=== PATIENT | female | born 1940 | race Hispanic/Latino ===

== ENCOUNTER 2018-06-09 15:54 | Inpatient (IN) | payer BC, MEDICARE ==
[2018-06-09] MEDS ORDERED: Morphine 4 mg/ml ISec IVP STA (17:54)
[2018-06-09] MEDS ORDERED: Vancomycin 1gm in NS 250ml 1 GM/250 ML BAG IVPB STA (17:54)
--- NOTE | 2018-06-09 18:01 | ED PDOC ---
Arrival/HPI - General Chief Complaint: Lower Extremity Problem/Injury Time Seen by Provider: 06/09/18 17:53 Historian: Patient - History of Present Illness Narrative History of Present Illness (Text): 06/09/18 17:57 78 y/o female, pmh including htn/hld/osteoporosis, nkda, c/o rt. foot toe pain x 3-4 days. Pt. stated that she scratch the rt. foot 5th toe about 4 days ago, been having foul smell and skin redness on the rt. 5th digit toe, been having pain on the rt. foot region, no fever or chills, painful to walk and stand, no fall or trauma, no night sweat, no dizziness, no change in vision, no other medical or psychological complaints. Past Medical History - Provider Review Nursing Documentation Reviewed: Yes - Infectious Disease Hx of Infectious Diseases: None - Reproductive Menopause: Yes - Cardiac Hx Hypertension: Yes - Pulmonary Hx Asthma: Yes - Neurological Hx Neurological Disorder: No - HEENT Hx HEENT Disorder: No - Renal Hx Renal Disorder: No - Endocrine/Metabolic Hx Endocrine Disorders: No - Hematological/Oncological Hx Blood Disorders: No - Integumentary Hx Dermatological Disorder: No - Musculoskeletal/Rheumatological Hx Musculoskeletal Disorders: No - Gastrointestinal Hx Gastrointestinal Disorders: No - Genitourinary/Gynecological Hx Genitourinary Disorders: No - Psychiatric Hx Psychophysiologic Disorder: No Hx Substance Use: No - Surgical History Hx Cholecystectomy: Yes Hx Orthopedic Surgery: Yes (Right foot) - Anesthesia Hx Anesthesia: Yes Hx Anesthesia Reactions: No Hx Malignant Hyperthermia: No Family/Social History - Physician Review Nursing Documentation Reviewed: Yes Family/Social History: Unknown Family HX Smoking Status: Never Smoked Hx Alcohol Use: No Hx Substance Use: No Allergies/Home Meds Allergies/Adverse Reactions: Allergies No Known Allergies Allergy (Verified 11/25/15 22:45) Home Medications: Home Meds Medication Instructions Recorded Confirmed Budesonide/Formoterol Fumarate 2 aer IH DAILY 05/14/15 11/25/15 [Symbicort] Olmesartan Medoxomil [Benicar] 20 mg PO DAILY 05/14/15 11/25/15 Review of Systems - Review of Systems Constitutional: absent: Fatigue, Fevers Eyes: absent: Vision Changes ENT: absent: Hearing Changes Respiratory: absent: SOB, Cough Cardiovascular: absent: Chest Pain Gastrointestinal: absent: Abdominal Pain, Nausea, Vomiting Skin: Cellulitis. absent: Rash, Pruritis, Skin Lesions, Laceration, Abscess, Ulcer Neurological: absent: Headache, Dizziness Psychiatric: absent: Anxiety, Depression Physical Exam Vital Signs Reviewed: Yes Vital Signs Temp Pulse Resp BP Pulse Ox 06/09/18 17:30 98.3 F 90 18 150/90 99 Temperature: Afebrile Blood Pressure: Normal Pulse: Regular Respiratory Rate: Normal Appearance: Positive for: Well-Appearing, Non-Toxic Pain Distress: Moderate Mental Status: Positive for: Alert and Oriented X 3 - Systems Exam Head: Present: Atraumatic, Normocephalic Pupils: Present: PERRL Extroacular Muscles: Present: EOMI Conjunctiva: Present: Normal Mouth: Present: Moist Mucous Membranes Neck: Present: Normal Range of Motion Respiratory/Chest: Present: Clear to Auscultation, Good Air Exchange. No: Respiratory Distress, Accessory Muscle Use Cardiovascular: Present: Regular Rate and Rhythm, Normal S1, S2. No: Murmurs Abdomen: No: Tenderness, Distention, Peritoneal Signs Back: Present: Normal Inspection Upper Extremity: Present: Normal Inspection. No: Cyanosis, Edema Lower Extremity: Present: Normal Inspection, Other (Rt. foot/LE: visible foul smell with skin cracking between the 4th and 5th digit web space with foul smell along with cellulitis on the rt. foot 4th and 5th digit dorsum toe streaking up to the rt. foot and anterior ocampo region, no fluctuant abscess noted, FROM without limitation, sensation intact, motor 5/5, +DPPT pulses, capillary refill< 2 seconds, neurovascular intact. ). No: Edema Neurological: Present: GCS=15, CN II-XII Intact, Speech Normal Skin: Present: Warm, Dry, Normal Color. No: Rashes Psychiatric: Present: Alert, Oriented x 3, Normal Insight, Normal Concentration Medical Decision Making ED Course and Treatment: 06/09/18 18:01 -Labs/blood culture -EKG -Rt. foot 5th toe xray -RLE Venuous doppler -IV vancomycin/morphine -Observe and reassess 06/09/18 20:00 -EKG: NSR @ 72 BPM, no ST elevation or depression, no T wave inversion -Rt foot xray show no fracture/dislocation/gas -RLE Venuous doppler -Labs show no acute findings except wbc 11.6 (blood culture ordered) -Pt. will need to be admitted for IV antibiotic and wound care due to the extensive of this cellulitis spreading. All labs and radiology studies explained to the patient and she agreed to be admitted. -Pt. request to be admitted under Dr. Ha service, I discussed the case with Dr. Ha including/labs/radiology results and agreed to admit to her service as she would follow up on any pending labs/radiology studies but she request to have Dr. Martinez and Dr. Jerome for routine consult which I ordered. - Lab Interpretations I have reviewed the lab results: Yes - RAD Interpretation Radiology Orders: 06/09/18 17:54 FOOT RIGHT 5TH DIGIT (TOE) [RAD] Stat DUPLEX LOWER EXTRM VEIN RIGHT [US] Stat 06/09/18 17:55 CHEST PORTABLE [RAD] Stat Chest xray: ------- Rt. foot 5th digit xray: RLE venuous doppler Transportation Superintendent: Radiologist - EKG Interpretation EKG Interpretation (Text): 06/09/18 20:08 NSR @ 72 BPM, no ST elevation or depression, no T wave inversion Interpreted by ED Physician: Yes Type: 12 lead EKG - Medication Orders Current Medication Orders: Sodium Chloride (Sodium Chloride 0.9%) 1,000 mls @ 100 mls/hr IV .Q10H [facility] Vancomycin HCl (Vancomycin 1gm) 1 gm in 250 mls @ 167 mls/hr IVPB STAT STA; Protocol Stop: 06/09/18 19:23 Morphine Sulfate (Morphine) 4 mg IVP STAT STA Stop: 06/09/18 17:55 - PA / HUNTER GUIDE / Resident Statement MD/DO has reviewed & agrees with the documentation as recorded. Disposition/Present on Arrival - Present on Arrival Any Indicators Present on Arrival: No History of DVT/PE: No History of Uncontrolled Diabetes: No Urinary Catheter: No History of Decub. Ulcer: No History Surgical Site Infection Following: None - Disposition Have Diagnosis and Disposition been Completed?: Yes Diagnosis: Cellulitis of foot, Leukocytosis (leucocytosis) Disposition: HOSPITALIZED Disposition Time: 20:02 Patient Plan: Admission, Observation Condition: STABLE Discharge Instructions (ExitCare): Cellulitis (ED) Forms: [employer] (Y[place]i)
[2018-06-09] MEDS: Sodium Chloride 0.9% 1,000 ML IV SCH (19:11)
[2018-06-09 19:13] LABS: BASO # 0.03 K/mm3 (0.0-2.0); BASO % 0.3 % (0.0-3.0); EOS # 0.1 (0.0-0.7); EOS % 0.9 % (1.5-5.0); GRAN # 7.54 (1.4-6.5); GRAN % 65.1 % (50.0-68.0); HEMOGLOBIN 14.1 g/dL (12.0-16.0); LYMPH # 2.9 (1.2-3.4); LYMPH % 24.6 % (22.0-35.0); MEAN CELL VOLUME 93.1 fl (80.0-105.0); MEAN CORPUSCULAR HEMOGLOBIN 31.5 pg (25.0-35.0); MEAN CORPUSCULAR HGB CONC 33.8 g/dl (31.0-37.0); MEAN PLATELET VOLUME 10.6 fl (7.0-11.0); MONO # 1.1 (0.1-0.6); MONO % 9.1 % (1.0-6.0); RBC 4.48 10^6/uL (3.5-6.1); RED CELL DISTRIBUTION WIDTH 13.9 % (11.5-14.5); WHITE BLOOD COUNT 11.6 10^3/ul (4.5-11.0)
[2018-06-09 19:14] LABS: VENOUS BLOOD GAS BASE EXCESS -1.5 mmol/L (0.0-2.0); VENOUS BLOOD GAS PO2 46 mm/Hg (30-55); VENOUS BLOOD PH 7.35 (7.32-7.43)
[2018-06-09 19:23] LABS: ALB/GLOB RATIO 1.3 (1.1-1.8); ALBUMIN 4.1 g/dL (3.0-4.8); ALT/SGPT 23 U/L (7-56); AST/SGOT 25 U/L (14-36); BLOOD UREA NITROGEN 22 mg/dL (7-21); GFR NON-AFRICAN AMERICAN > 60
[2018-06-10 03:44] VITALS: BMI 26.5
[2018-06-10] MEDS: Vancomycin 1gm in NS 250ml 1 GM/250 ML BAG IVPB SCH ×2 (06:13→19:11)
[2018-06-10] MEDS: Sodium Chloride 0.9% 1,000 ML IV SCH (06:13)
[2018-06-10 07:28] LABS: IRON 85 ug/dL (45-180)
[2018-06-10 07:38] LABS: % IRON SATURATION 38 % (20-55); TOTAL IRON BINDING CAPACITY 223 ug/dL (265-497)
--- NOTE | 2018-06-10 08:26 | CP.PCM.CON ---
<Lyssa Aguilar - Last Filed: 06/10/18 12:40> History of Present Illness - History of Present Illness History of Present Illness: PGY-3 Resident ID consult note for Dr. Navarro Reason for consult: right foot cellulites, leukocytosis Patient is a 78 y/o female with PMHx of htn, hld, osteoporosis presenting with right interdigit pain and infection. Patient states she had some tissues between the 4th and 5th toes, and when she was trying to remove it with some sharp object, she pocked herself. She noticed the injury was getting worst, and started to smell 2 days ago. Decided to come in last night because the pain and smell was getting worst. States she also had subjective fever and chills yesterday. Denies nausea, vomiting, admits to chronic diarrhea since having her colonoscopy 2 months ago. PMHx: htn, hld, osteoporosis PShx: colonoscopy FMHx: non contributory Social: denies tobacco, alcohol or illicit drug use Home meds: as per chart Allergy: NKDA Review of Systems - Constitutional Constitutional: Chills, Fever. absent: Weakness - EENT Eyes: As Per HPI Nose/Mouth/Throat: As Per HPI - Cardiovascular Cardiovascular: As Per HPI - Respiratory Respiratory: As Per HPI - Gastrointestinal Gastrointestinal: As Per HPI - Genitourinary Genitourinary: absent: Dysuria - Musculoskeletal Musculoskeletal: As Per HPI - Integumentary Integumentary: Rash, Wounds - Neurological Neurological: absent: Confusion - Psychiatric Psychiatric: absent: Confusion - Endocrine Endocrine: absent: Polyuria Past Patient History - Infectious Disease Hx of Infectious Diseases: None - Tetanus Immunizations Tetanus Immunization: Unknown - Past Medical History & Family History Past Medical History?: Yes Past Family History: Reviewed and not pertinent - Past Social History Smoking Status: Never Smoked Alcohol: None Drugs: Denies Home Situation {Lives}: With Family - CARDIAC Hx Hypercholesterolemia: Yes Hx Hypertension: Yes - PULMONARY Hx Asthma: Yes - NEUROLOGICAL Hx Neurological Disorder: No - HEENT Hx HEENT Problems: No - RENAL Hx Chronic Kidney Disease: No - ENDOCRINE/METABOLIC Hx Endocrine Disorders: No - HEMATOLOGICAL/ONCOLOGICAL Hx Blood Disorders: No - INTEGUMENTARY Hx Dermatological Problems: No - MUSCULOSKELETAL/RHEUMATOLOGICAL Hx Falls: Yes Hx Osteoporosis: Yes - GASTROINTESTINAL Hx Gastrointestinal Disorders: No - GENITOURINARY/GYNECOLOGICAL Hx Genitourinary Disorders: No - PSYCHIATRIC Hx Psychophysiologic Disorder: No - SURGICAL HISTORY Hx Cholecystectomy: Yes Hx Orthopedic Surgery: Yes (Right foot) - ANESTHESIA Hx Anesthesia: Yes Hx Anesthesia Reactions: No Hx Malignant Hyperthermia: No Meds Allergies/Adverse Reactions: Allergies Allergy/AdvReac Type Severity Reaction Status Date / Time No Known Allergies Allergy Verified 11/25/15 22:45 - Medications Medications: Current Medications Sodium Chloride (Sodium Chloride 0.9%) 1,000 mls @ 100 mls/hr IV .Q10H [facility]OL[facility] Last Admin: 06/10/18 06:13 Dose: 100 mls/hr Vancomycin HCl (Vancomycin 1gm) 1 gm in 250 mls @ 167 mls/hr IVPB Q12H CAROLYN; Protocol Last Admin: 06/10/18 06:13 Dose: 167 mls/hr Physical Exam - Constitutional Appears: No Acute Distress - Head Exam Head Exam: ATRAUMATIC, NORMAL INSPECTION, NORMOCEPHALIC - Eye Exam Eye Exam: Normal appearance - ENT Exam ENT Exam: Mucous Membranes Moist - Neck Exam Neck exam: Positive for: Normal Inspection - Respiratory Exam Respiratory Exam: Clear to Auscultation Bilateral, NORMAL BREATHING PATTERN. absent: Rales, Rhonchi, Wheezes, Respiratory Distress, Stridor - Cardiovascular Exam Cardiovascular Exam: REGULAR RHYTHM, +S1, +S2 - GI/Abdominal Exam GI & Abdominal Exam: Normal Bowel Sounds, Soft. absent: Distended, Firm, Guarding, Rebound, Rigid, Tenderness - Extremities Exam Extremities exam: Negative for: tenderness - Back Exam Back exam: NORMAL INSPECTION - Neurological Exam Neurological exam: Alert, Oriented x3 - Psychiatric Exam Psychiatric exam: Normal Affect, Normal Mood - Skin Additional comments: Right 4th and 5th interdigit with biofilm like covering, with surrounding erythema, foul smelling, with moisture. Results - Vital Signs Recent Vital Signs: Last Vital Signs Temp 98.8 F 06/09/18 23:21 Pulse 78 06/09/18 23:21 Resp 20 06/10/18 03:29 BP 140/78 06/09/18 23:21 Pulse Ox 96 06/09/18 23:21 - Labs Result Diagrams: 06/09/18 17:00 06/09/18 17:00 Labs: Laboratory Results - last 24 hr 06/09/18 06/09/18 06/09/18 17:00 17:00 17:00 WBC 11.6 H D RBC 4.48 Hgb 14.1 Hct 41.7 MCV 93.1 MCH 31.5 MCHC 33.8 RDW 13.9 Plt Count 166 MPV 10.6 Gran % 65.1 Lymph % (Auto) 24.6 [place] % (Auto) 9.1 H Eos % (Auto) 0.9 L Baso % (Auto) 0.3 Gran # 7.54 H Lymph # (Auto) 2.9 [place] # (Auto) 1.1 H Eos # (Auto) 0.1 Baso # (Auto) 0.03 pO2 46 VBG pH 7.35 VBG pCO2 44.0 VBG HCO3 24.3 VBG Total CO2 25.7 VBG O2 Sat (Calc) 85.6 H VBG Base Excess -1.5 L VBG Potassium 4.0 Sodium 138.0 141 Chloride 109.0 H 109 H Glucose 97 Lactate 0.9 FiO2 21.0 Potassium 4.1 Carbon Dioxide 24 Anion Gap 13 BUN 22 H Creatinine 0.8 Est GFR ( Amer) > 60 Est GFR (Non-Af Amer) > 60 Random Glucose 101 Calcium 9.0 Iron TIBC % Saturation Total Bilirubin 2.3 H AST 25 ALT 23 Alkaline Phosphatase 47 Total Protein 7.2 Albumin 4.1 Globulin 3.2 Albumin/Globulin Ratio 1.3 Triglycerides Cholesterol LDL Cholesterol Direct HDL Cholesterol Venous Blood Potassium 4.0 06/10/18 06/10/18 06:30 06:30 WBC RBC Hgb Hct MCV MCH MCHC RDW Plt Count MPV Gran % Lymph % (Auto) [place] % (Auto) Eos % (Auto) Baso % (Auto) Gran # Lymph # (Auto) [place] # (Auto) Eos # (Auto) Baso # (Auto) pO2 VBG pH VBG pCO2 VBG HCO3 VBG Total CO2 VBG O2 Sat (Calc) VBG Base Excess VBG Potassium Sodium Chloride Glucose Lactate FiO2 Potassium Carbon Dioxide Anion Gap BUN Creatinine Est GFR ( Amer) Est GFR (Non-Af Amer) Random Glucose Calcium Iron 85 TIBC 223 L % Saturation 38 Total Bilirubin AST ALT Alkaline Phosphatase Total Protein Albumin Globulin Albumin/Globulin Ratio Triglycerides 88 Cholesterol 128 L LDL Cholesterol Direct 65 HDL Cholesterol 45 Venous Blood Potassium Assessment & Plan - Assessment and Plan (Free Text) Assessment: Patient is a 78 y/o with pmh of Intertrigo with possible cellulites of the 4th and 5th interdigit htn hld osteoporosis Plan: WBC 11.6, afebrile, lateral 5th MTP swelling on x-ray, likely cellulites. Will add clotrimazole cream, may switch to po Keflex and follow up with podiatry. Medical management as per primary. Patient seen, examined and case discussed with Dr. Navarro. - Date & Time Date: 06/10/18 Time: 12:25 <Frantz Navarro - Last Filed: 06/10/18 21:36> Meds - Medications Medications: Current Medications Atorvastatin Calcium (Lipitor) 10 mg PO DAILY [facility] Last Admin: 06/10/18 11:08 Dose: 10 mg Cadexomer Iodine (Iodosorb) 0 gm TOP DAILY [facility] Clotrimazole (Lotrimin 1%) 1 gm TOP BID CAR[facility] Last Admin: 06/10/18 18:08 Dose: Not Given Home Med (Home Med) 0.5 unit PO DAILY [facility] Last Admin: 06/10/18 21:23 Dose: 0.5 unit Vancomycin HCl (Vancomycin 1gm) 1 gm in 250 mls @ 167 mls/hr IVPB Q12H CAROLYN; Protocol Last Admin: 06/10/18 19:11 Dose: 167 mls/hr Lactobacillus Acidophilus (Bacid Acidophilus) 1 cap PO BID CAROLYN Last Admin: 06/10/18 19:11 Dose: 1 cap Results - Vital Signs Recent Vital Signs: Last Vital Signs Temp 98.2 F 06/10/18 14:00 Pulse 60 06/10/18 14:00 Resp 20 06/10/18 14:00 BP 93/54 L 06/10/18 14:00 Pulse Ox 96 06/10/18 14:00 - Labs Result Diagrams: 06/09/18 17:00 06/09/18 17:00 Labs: Laboratory Results - last 24 hr 06/10/18 06/10/18 06/10/18 06:30 06:30 06:30 Hemoglobin A1c 5.2 Iron 85 TIBC 223 L % Saturation 38 Triglycerides 88 Cholesterol 128 L LDL Cholesterol Direct 65 HDL Cholesterol 45 Vitamin B12 418 Folate 10.7 Assessment & Plan - Assessment and Plan (Free Text) Plan: Infectious Diseases Attending Physician Attestation Patient seen and examined, discussed with certified medical asst. I have the pertinent clinical findings, history of present illness, medical histories, physical exam and pertinent labs and imaging. I agree with the above findings, assessment and plan. In addition,we have started the patient on Vancomycin and will start Clotrimazole for this patient with right foot intertrigo with probable mild cellulitis. Will monitor clinical response.
--- NOTE | 2018-06-10 08:35 | US ---
PROCEDURE: Right lower extremity venous US HISTORY: Leg pain and swelling. Evaluate for DVT. PHYSICIAN(S): Bucky Moarles M.D. TECHNIQUE: Duplex sonography and color-flow Doppler with graded compression were used to evaluate the deep venous system of the right lower extremity. FINDINGS: The visualized deep venous system of the right lower extremity is sonographically normal and compressible. Normal waveforms and augmentation are seen. There is no sonographic evidence for deep venous thrombosis in the visualized segments of the right lower extremity. IMPRESSION: 1. No sonographic evidence for deep venous thrombosis in the visualized segments of the right lower extremity.
--- NOTE | 2018-06-10 08:43 | RAD ---
Date of service: 06/09/2018 PROCEDURE: CHEST RADIOGRAPH, 1 VIEW HISTORY: medical clearance COMPARISON: 05/14/2015 FINDINGS: LUNGS: Clear. PLEURA: No pneumothorax or pleural fluid seen. CARDIOVASCULAR: Normal. OSSEOUS STRUCTURES: No significant abnormalities. VISUALIZED UPPER ABDOMEN: Normal. OTHER FINDINGS: There is moderate aortic tortuosity IMPRESSION: No active disease.
--- NOTE | 2018-06-10 09:14 | RAD ---
Date of service: 06/09/2018 PROCEDURE: Right Foot Radiographs. HISTORY: Right foot 5th toe cellulitis COMPARISON: None. FINDINGS: BONES: There is no acute displaced fracture or bone destruction. Bone alignment is normal. There is diffuse bone demineralization. There is a prominent plantar calcaneal spur. JOINTS: There is moderate degenerative osteoarthrosis in the 1st MTP joint with reduced joint space and marginal osteophytes. The remaining joint spaces are preserved. SOFT TISSUES: There is lateral soft tissue swelling at the 5th MTP joint. OTHER FINDINGS: None. IMPRESSION: Lateral soft tissue swelling at the 5th MTP joint may represent cellulitis. No radiographic evidence for osteomyelitis. 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
[2018-06-10] MEDS ORDERED: Home Med 1 UNIT PO SCH (10:45)
[2018-06-10] MEDS: Lactobacillus Acidophilus 500 MU Cap PO SCH ×2 (11:11→19:11)
--- NOTE | 2018-06-10 11:52 | CARD ---
APPROVED REPORT Date of service: 06/09/2018 EKG Measurement Heart [id number] <Conclusion> Normal sinus rhythm Normal ECG
[2018-06-10] MEDS: Clotrimazole 1% Cream(30 gm) TOP SCH ×2 (12:29→18:08)
[2018-06-10 13:01] LABS: FOLATE 10.7 ng/mL
--- NOTE | 2018-06-10 13:03 | HP ---
The patient is a 78-year-old female. The patient was seen and examined at the bedside on 06/09/2018. Daughter was sitting on the bedside. CHIEF COMPLAINT: Right foot pain. HISTORY OF PRESENT ILLNESS: Ms. Yolanda Kapadia is a 78-year-old female with past medical history of hypertension, hypercholesterolemia, and osteoporosis, came with right foot pain for 3 to 4 days. The patient states that she struck her right foot fifth toe about 4 days ago, having a fall, redness on the right fifth digit toe, been having pain on the right foot region. No fever. No chills. No headache. No nausea, vomiting, or diarrhea. No hematuria or hematochezia. No fatigue or tiredness. No fall or tremor. No night sweats. No dizziness. No change in the vision. No other psychological complaints. No homicidal or suicidal ideation. PAST MEDICAL HISTORY: As above. Hypertension, asthma, orthopedic right foot surgery. FAMILY HISTORY: Father and mother, noncontributory. HABITS: Smoking, never. Alcohol, never. Drugs, never. ALLERGIES: THE PATIENT IS NOT ALLERGIC WITH ANY MEDICATIONS. HOME MEDICATIONS: Symbicort and Benicar. REVIEW OF SYSTEMS: The patient was seen and examined at the bedside in the ER, daughter was still at the bedside also, all questions answered. The patient has pain in the right foot, it is red and warm. No fever. No chills. No hematuria or hematochezia. No headache. No dizziness. No chest pain. No shortness of breath or coughing. No abdominal pain, nausea, or vomiting. Had cellulitis of the right foot. Otherwise, no skin lesions, lacerations, abscess, or ulcers. No anxiety or depression. PHYSICAL EXAMINATION: VITAL SIGNS: Temperature is 98.3, pulse 90, respiratory rate 18, blood pressure 150/90, pulse oximetry 99. HEENT: Head is normocephalic and atraumatic. Eyes; PERRLA. Extraocular muscles are intact. Conjunctivae are clear. Nose is patent. Mucous membranes are moist. NECK: Supple. No carotid bruit. No JVD or thyromegaly. CHEST: Bilaterally symmetrical. HEART: S1 and S2 positive. LUNGS: Clear to auscultation. ABDOMEN: Soft. Bowel sounds are present. No organomegaly. EXTREMITIES: No edema. No cyanosis. Right foot is red and warm. NEUROLOGIC: The patient is awake and alert. Moving all 4 extremities. No focal deficits. LABORATORY DATA: White blood cell is 11.6, hemoglobin 14.1, hematocrit 41.7, and platelets 166. Sodium 141, potassium 4.1, BUN noted, creatinine 0.8, glucose 101 ASSESSMENT AND PLAN: Ms. Yolanda Kapadia is a 78-year-old with anemia, hyperchloremia, increased BUN, abnormal liver function test. Chest x-ray, foot x-ray, extremity ultrasound were done. Results are pending. Mr. Yolanda Kapadia is a 78-year-old lady came with her daughter, history of hypertension, hypercholesterolemia, osteoporosis, came with pain in the right side of the abdomen or right leg. History of cellulitis of the foot. Admitted the patient, ID consult called, started on IV antibiotics. Repeat labs. We will follow up. Nuha Ha MD MTDD
--- NOTE | 2018-06-10 13:34 | CP.PCM.CON ---
Addendum entered and electronically signed by Annel Grant DPM 06/10/18 13:44: RLE US (06/09): No evidence for DVT in RLE Original Note: <Annel Grant - Last Filed: 06/10/18 13:41> History of Present Illness - History of Present Illness History of Present Illness: Podiatry Progress Note for Dr. Tavarez: 78 yo female patient, with PMHx of HTN, HLD, osteoporosis, seen and evaluated at bedside with Dr. Tavarez for right foot pain. Patient states that she often has pain in between her right 4th and 5th toes and gets the area shaved by her doctor every three months. Recently, she was trying to remove the tissue between her toes herself and caused irritation. She also noted that it started to get red and had malodor. Patient denies N/V/F today. PMHx: HTN, HLD, osteoporosis Social: denies tobacco use Allergy: NKDA Review of Systems - Review of Systems Review of Systems: As per HPI Past Patient History - Infectious Disease Hx of Infectious Diseases: None - Tetanus Immunizations Tetanus Immunization: Unknown - Past Medical History & Family History Past Medical History?: Yes Past Family History: Reviewed and not pertinent - Past Social History Smoking Status: Never Smoked Alcohol: None Drugs: Denies Home Situation {Lives}: With Family - CARDIAC Hx Hypercholesterolemia: Yes Hx Hypertension: Yes - PULMONARY Hx Asthma: Yes - NEUROLOGICAL Hx Neurological Disorder: No - HEENT Hx HEENT Problems: No - RENAL Hx Chronic Kidney Disease: No - ENDOCRINE/METABOLIC Hx Endocrine Disorders: No - HEMATOLOGICAL/ONCOLOGICAL Hx Blood Disorders: No - INTEGUMENTARY Hx Dermatological Problems: No - MUSCULOSKELETAL/RHEUMATOLOGICAL Hx Falls: Yes Hx Osteoporosis: Yes - GASTROINTESTINAL Hx Gastrointestinal Disorders: No - GENITOURINARY/GYNECOLOGICAL Hx Genitourinary Disorders: No - PSYCHIATRIC Hx Psychophysiologic Disorder: No - SURGICAL HISTORY Hx Cholecystectomy: Yes Hx Orthopedic Surgery: Yes (Right foot) - ANESTHESIA Hx Anesthesia: Yes Hx Anesthesia Reactions: No Hx Malignant Hyperthermia: No Meds Allergies/Adverse Reactions: Allergies Allergy/AdvReac Type Severity Reaction Status Date / Time No Known Allergies Allergy Verified 11/25/15 22:45 - Medications Medications: Current Medications Atorvastatin Calcium (Lipitor) 10 mg PO DAILY [facility] Last Admin: 06/10/18 11:08 Dose: 10 mg Cadexomer Iodine (Iodosorb) 0 gm TOP DAILY [facility] Clotrimazole (Lotrimin 1%) 1 gm TOP BID [facility] Last Admin: 06/10/18 12:29 Dose: Not Given Home Med (Home Med) 1 unit PO DAILY [facility] Sodium Chloride (Sodium Chloride 0.9%) 1,000 mls @ 100 mls/hr IV .Q10H [facility] Last Admin: 06/10/18 06:13 Dose: 100 mls/hr Vancomycin HCl (Vancomycin 1gm) 1 gm in 250 mls @ 167 mls/hr IVPB Q12H [facility]; Protocol Last Admin: 06/10/18 06:13 Dose: 167 mls/hr Lactobacillus Acidophilus (Bacid Acidophilus) 1 cap PO BID [facility] Last Admin: 06/10/18 11:11 Dose: 1 cap Physical Exam - Constitutional Appears: Well, Non-toxic, No Acute Distress - Head Exam Head Exam: ATRAUMATIC, NORMOCEPHALIC - Extremities Exam Additional comments: RLE focused exam: Vascular: DP/PT palpable, CFT <3 seconds to all digits, TG warm to warm, mild edema to the dorsal aspect of the 4th and 5th digits. Ortho: Tenderness to palpation of 4th and 5th digit as well as 4th interspace. No gross deformities present Neuro: Gross and protective sensation intact Derm: Erythema noted to dorsal aspect of 4th and 5th digits. 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 No purulence, mild serous drainage, no probe to bone, no tunneling, no tracking noted - Neurological Exam Neurological exam: Alert, Oriented x3 - Psychiatric Exam Psychiatric exam: Normal Affect, Normal Mood Results - Vital Signs Recent Vital Signs: Last Vital Signs Temp 98 F 06/10/18 06:00 Pulse 62 06/10/18 06:00 Resp 20 06/10/18 06:00 BP 102/62 06/10/18 06:00 Pulse Ox 97 06/10/18 06:00 - Labs Result Diagrams: 06/09/18 17:00 06/09/18 17:00 Labs: Laboratory Results - last 24 hr 06/09/18 06/09/18 06/09/18 17:00 17:00 17:00 WBC 11.6 H D RBC 4.48 Hgb 14.1 Hct 41.7 MCV 93.1 MCH 31.5 MCHC 33.8 RDW 13.9 Plt Count 166 MPV 10.6 Gran % 65.1 Lymph % (Auto) 24.6 [place] % (Auto) 9.1 H Eos % (Auto) 0.9 L Baso % (Auto) 0.3 Gran # 7.54 H Lymph # (Auto) 2.9 [place] # (Auto) 1.1 H Eos # (Auto) 0.1 Baso # (Auto) 0.03 pO2 46 VBG pH 7.35 VBG pCO2 44.0 VBG HCO3 24.3 VBG Total CO2 25.7 VBG O2 Sat (Calc) 85.6 H VBG Base Excess -1.5 L VBG Potassium 4.0 Sodium 138.0 141 Chloride 109.0 H 109 H Glucose 97 Lactate 0.9 FiO2 21.0 Potassium 4.1 Carbon Dioxide 24 Anion Gap 13 BUN 22 H Creatinine 0.8 Est GFR ( Amer) > 60 Est GFR (Non-Af Amer) > 60 Random Glucose 101 Hemoglobin A1c Calcium 9.0 Iron TIBC % Saturation Total Bilirubin 2.3 H AST 25 ALT 23 Alkaline Phosphatase 47 Total Protein 7.2 Albumin 4.1 Globulin 3.2 Albumin/Globulin Ratio 1.3 Triglycerides Cholesterol LDL Cholesterol Direct HDL Cholesterol Vitamin B12 Folate Venous Blood Potassium 4.0 06/10/18 06/10/18 06/10/18 06:30 06:30 06:30 WBC RBC Hgb Hct MCV MCH MCHC RDW Plt Count MPV Gran % Lymph % (Auto) [place] % (Auto) Eos % (Auto) Baso % (Auto) Gran # Lymph # (Auto) [place] # (Auto) Eos # (Auto) Baso # (Auto) pO2 VBG pH VBG pCO2 VBG HCO3 VBG Total CO2 VBG O2 Sat (Calc) VBG Base Excess VBG Potassium Sodium Chloride Glucose Lactate FiO2 Potassium Carbon Dioxide Anion Gap BUN Creatinine Est GFR ( Amer) Est GFR (Non-Af Amer) Random Glucose Hemoglobin A1c 5.2 Calcium Iron 85 TIBC 223 L % Saturation 38 Total Bilirubin AST ALT Alkaline Phosphatase Total Protein Albumin Globulin Albumin/Globulin Ratio Triglycerides 88 Cholesterol 128 L LDL Cholesterol Direct 65 HDL Cholesterol 45 Vitamin B12 418 Folate 10.7 Venous Blood Potassium Assessment & Plan - Assessment and Plan (Free Text) Assessment: 78 yo female patient, with PMHx of HTN, HLD, osteoporosis, seen and evaluated for right foot pain. Plan: Patient seen and evaluated at bedside with Dr. Tavarez Vitals, labs, and chart reviewed; Afebrile, leukocytosis Heloma mole debrided in right 4th interspace with a #15 blade to patient tolerance without incident Local wound care: betadine paint with DSD Iodoform ordered; will apply tomorrow to affected area ID reccs appreciated; continue with IV Vanc Podiatry will continue to follow Thank you for the consult - Date & Time Date: 06/10/18 Time: 13:36 <Charly Tavarez - Last Filed: 06/10/18 17:00> Meds - Medications Medications: Current Medications Atorvastatin Calcium (Lipitor) 10 mg PO DAILY [facility] Last Admin: 06/10/18 11:08 Dose: 10 mg Cadexomer Iodine (Iodosorb) 0 gm TOP DAILY [facility] Clotrimazole (Lotrimin 1%) 1 gm TOP BID [facility] Last Admin: 06/10/18 12:29 Dose: Not Given Home Med (Home Med) 1 unit PO DAILY [facility] Last Admin: 06/10/18 11:05 Dose: Not Given Sodium Chloride (Sodium Chloride 0.9%) 1,000 mls @ 100 mls/hr IV .Q10H [facility] Last Admin: 06/10/18 06:13 Dose: 100 mls/hr Vancomycin HCl (Vancomycin 1gm) 1 gm in 250 mls @ 167 mls/hr IVPB Q12H [facility]; Protocol Last Admin: 06/10/18 06:13 Dose: 167 mls/hr Lactobacillus Acidophilus (Bacid Acidophilus) 1 cap PO BID [facility] Last Admin: 06/10/18 11:11 Dose: 1 cap Results - Vital Signs Recent Vital Signs: Last Vital Signs Temp 98.2 F 06/10/18 14:00 Pulse 60 06/10/18 14:00 Resp 20 06/10/18 14:00 BP 93/54 L 06/10/18 14:00 Pulse Ox 96 06/10/18 14:00 - Labs Result Diagrams: 06/09/18 17:00 06/09/18 17:00 Labs: Laboratory Results - last 24 hr 06/09/18 06/09/18 06/09/18 17:00 17:00 17:00 WBC 11.6 H D RBC 4.48 Hgb 14.1 Hct 41.7 MCV 93.1 MCH 31.5 MCHC 33.8 RDW 13.9 Plt Count 166 MPV 10.6 Gran % 65.1 Lymph % (Auto) 24.6 [place] % (Auto) 9.1 H Eos % (Auto) 0.9 L Baso % (Auto) 0.3 Gran # 7.54 H Lymph # (Auto) 2.9 [place] # (Auto) 1.1 H Eos # (Auto) 0.1 Baso # (Auto) 0.03 pO2 46 VBG pH 7.35 VBG pCO2 44.0 VBG HCO3 24.3 VBG Total CO2 25.7 VBG O2 Sat (Calc) 85.6 H VBG Base Excess -1.5 L VBG Potassium 4.0 Sodium 138.0 141 Chloride 109.0 H 109 H Glucose 97 Lactate 0.9 FiO2 21.0 Potassium 4.1 Carbon Dioxide 24 Anion Gap 13 BUN 22 H Creatinine 0.8 Est GFR ( Amer) > 60 Est GFR (Non-Af Amer) > 60 Random Glucose 101 Hemoglobin A1c Calcium 9.0 Iron TIBC % Saturation Total Bilirubin 2.3 H AST 25 ALT 23 Alkaline Phosphatase 47 Total Protein 7.2 Albumin 4.1 Globulin 3.2 Albumin/Globulin Ratio 1.3 Triglycerides Cholesterol LDL Cholesterol Direct HDL Cholesterol Vitamin B12 Folate Venous Blood Potassium 4.0 06/10/18 06/10/18 06/10/18 06:30 06:30 06:30 WBC RBC Hgb Hct MCV MCH MCHC RDW Plt Count MPV Gran % Lymph % (Auto) [place] % (Auto) Eos % (Auto) Baso % (Auto) Gran # Lymph # (Auto) [place] # (Auto) Eos # (Auto) Baso # (Auto) pO2 VBG pH VBG pCO2 VBG HCO3 VBG Total CO2 VBG O2 Sat (Calc) VBG Base Excess VBG Potassium Sodium Chloride Glucose Lactate FiO2 Potassium Carbon Dioxide Anion Gap BUN Creatinine Est GFR ( Amer) Est GFR (Non-Af Amer) Random Glucose Hemoglobin A1c 5.2 Calcium Iron 85 TIBC 223 L % Saturation 38 Total Bilirubin AST ALT Alkaline Phosphatase Total Protein Albumin Globulin Albumin/Globulin Ratio Triglycerides 88 Cholesterol 128 L LDL Cholesterol Direct 65 HDL Cholesterol 45 Vitamin B12 418 Folate 10.7 Venous Blood Potassium Attending/Attestation - Attestation I have personally seen and examined this patient.: Yes I have fully participated in the care of the patient.: Yes I have reviewed all pertinent clinical information: Yes
[2018-06-10] MEDS: OLMESARTAN MEDOXOMIL 20 MG PO SCH (21:23)
[2018-06-11] MEDS: Vancomycin 1gm in NS 250ml 1 GM/250 ML BAG IVPB SCH ×2 (06:01→18:19)
--- NOTE | 2018-06-11 06:17 | PN ---
DATE: 06/10/2018 SUBJECTIVE: The patient is a 78-year-old female. The patient was seen and examined on the bedside on 06/10/2018. Still complaining about pain in the right foot. No fever, no chills. Denies nausea, vomiting or diarrhea. Her colonoscopy was done two months ago. No significant changes in the urine noted. PHYSICAL EXAMINATION: VITAL SIGNS: Temperature 98.8, pulse 78, respiratory rate 20, blood pressure 140/70, pulse oximetry 96. HEENT: Head: Normocephalic and atraumatic. Eyes: PERRLA. Extraocular muscles intact. Conjunctivae clear. Nose patent. Mucous membranes moist. NECK: Supple. No carotid bruit. No JVD or thyromegaly. CHEST: Bilaterally symmetrical. HEART: S1 and S2 positive. LUNGS: Clear to auscultation. ABDOMEN: Soft. Bowel sounds present. No organomegaly. EXTREMITIES: No edema. No cyanosis except right foot has dressing. LABORATORY DATA: White blood cell 11.6, hemoglobin 14.1, hematocrit 41.7, platelet 166. Sodium 141, potassium 4.1, BUN 22, creatinine 0.8, glucose 101. ASSESSMENT AND PLAN: Ms. Yolanda Kapadia is a 78-year-old lady with leukocytosis, hyperchloremia, increased BUN. The patient is getting vancomycin and started clotrimazole for this patient with right foot intertrigo and probably mild cellulitis. The patient has hypertension, hypercholesterolemia, osteoporosis. The patient was getting worse and started to days ago bad. According to the patient, she has subjective fever and chills yesterday, but not today. Seen by Dr. Charly Tavarez, manager training. Echocardiogram done. Chest x-ray, foot x-ray and extremity ultrasound done, reviewed by me. Nuha Ha MD MTDD
[2018-06-11 07:20] LABS: HEMOGLOBIN 13.3 g/dL (12.0-16.0); MEAN CELL VOLUME 92.4 fl (80.0-105.0); MEAN CORPUSCULAR HEMOGLOBIN 30.6 pg (25.0-35.0); MEAN CORPUSCULAR HGB CONC 33.1 g/dl (31.0-37.0); MEAN PLATELET VOLUME 10.9 fl (7.0-11.0); RBC 4.35 10^6/uL (3.5-6.1); RED CELL DISTRIBUTION WIDTH 13.6 % (11.5-14.5)
[2018-06-11 07:37] LABS: BLOOD UREA NITROGEN 11 mg/dL (7-21); CALCIUM 8.6 mg/dL (8.4-10.5); GFR NON-AFRICAN AMERICAN > 60
[2018-06-11] MEDS: Lactobacillus Acidophilus 500 MU Cap PO SCH ×2 (09:57→17:57)
--- NOTE | 2018-06-11 10:32 | CP.PCM.PN ---
<Angela Aguilarla - Last Filed: 06/11/18 14:07> Subjective - Date & Time of Evaluation Date of Evaluation: 06/11/18 Time of Evaluation: 07:30 - Subjective Subjective: PGY-3 ID progress note for Dr. Navarro Patient is s/p debridement by market risk manager yesterday. Remains afebrile. Pain improved. No n/v/d. Objective - Vital Signs/Intake and Output Vital Signs (last 24 hours): Temp Pulse Resp BP Pulse Ox 97.6 F 64 20 121/65 95 06/11/18 06:00 06/11/18 06:00 06/11/18 06:00 06/11/18 06:00 06/11/18 06:00 Intake and Output: 06/11/18 06/11/18 06:59 18:59 Intake Total 2770 Balance 2770 - Medications Medications: Current Medications Atorvastatin Calcium (Lipitor) 10 mg PO DAILY [facility] Last Admin: 06/11/18 09:57 Dose: 10 mg Cadexomer Iodine (Iodosorb) 0 gm TOP DAILY [facility] Clotrimazole (Lotrimin 1%) 1 gm TOP BID [facility] Last Admin: 06/10/18 18:08 Dose: Not Given Home Med (Home Med) 0.5 unit PO DAILY [facility] Last Admin: 06/10/18 21:23 Dose: 0.5 unit Vancomycin HCl (Vancomycin 1gm) 1 gm in 250 mls @ 167 mls/hr IVPB Q12H [facility]; Protocol Last Admin: 06/11/18 06:01 Dose: 167 mls/hr Lactobacillus Acidophilus (Bacid Acidophilus) 1 cap PO BID [facility] Last Admin: 06/11/18 09:57 Dose: 1 cap - Labs Labs: 06/11/18 06:40 06/11/18 06:40 - Constitutional Appears: No Acute Distress - Head Exam Head Exam: NORMAL INSPECTION - Eye Exam Eye Exam: Normal appearance - ENT Exam ENT Exam: Mucous Membranes Moist - Neck Exam Neck Exam: Normal Inspection - Respiratory Exam Respiratory Exam: Clear to Ausculation Bilateral, NORMAL BREATHING PATTERN. absent: Prolonged Expiratory Phase, Rales, Rhonchi, Wheezes, Stridor - Cardiovascular Exam Cardiovascular Exam: REGULAR RHYTHM, +S1, +S2 - GI/Abdominal Exam GI & Abdominal Exam: Soft, Normal Bowel Sounds. absent: Distended, Firm, Guarding, Tenderness - Extremities Exam Additional comments: right 4th and 5th toes with dressing - Neurological Exam Neurological Exam: Alert, Awake - Psychiatric Exam Psychiatric exam: Normal Mood - Skin Skin Exam: Abrasion (betwenn 4th and 5th toes on the right. ) Assessment and Plan - Assessment and Plan (Free Text) Assessment: Patient is a 78 y/o with: Intertrigo with possible cellulites of the 4th and 5th interdigit s/p debridement by market risk manager x-ray with mild edema htn hld osteoporosis Plan: Leukocytosis resolved, no fever. no growth after 24 hours on blood cultures. Wound culture from 06/09/18 night growing gram negative rods, likely cultures from the superficial swab as there was no pus noted from the site, only erythema covered to moisture, thus this is most likely colonization. Currently on vanco day# 2, may switch to po Keflex 500 mg q6 to complete 7 days of treatment. Follow up with the market risk manager. Continue with clotrimazole cream. Patient seen, examined and case discussed with Dr. Navarro. <Frantz Navarro - Last Filed: 06/11/18 20:03> Objective - Vital Signs/Intake and Output Vital Signs (last 24 hours): Temp Pulse Resp BP Pulse Ox 98.6 F 64 18 120/70 96 06/11/18 14:00 06/11/18 14:00 06/11/18 14:00 06/11/18 14:00 06/11/18 14:00 Intake and Output: 06/11/18 06/12/18 18:59 06:59 Intake Total 360 Balance 360 - Medications Medications: Current Medications Atorvastatin Calcium (Lipitor) 10 mg PO DAILY [facility] Last Admin: 06/11/18 09:57 Dose: 10 mg Cadexomer Iodine (Iodosorb) 0 gm TOP DAILY [facility] Last Admin: 06/11/18 11:34 Dose: 10 gm Clotrimazole (Lotrimin 1%) 1 gm TOP BID [facility] Last Admin: 06/11/18 18:18 Dose: Not Given Home Med (Home Med) 0.5 unit PO DAILY [facility] Last Admin: 06/11/18 18:01 Dose: 0.5 unit Vancomycin HCl (Vancomycin 1gm) 1 gm in 250 mls @ 167 mls/hr IVPB Q12H [facility]; Protocol Last Admin: 06/11/18 18:19 Dose: 167 mls/hr Lactobacillus Acidophilus (Bacid Acidophilus) 1 cap PO BID [facility] Last Admin: 06/11/18 17:57 Dose: 1 cap - Labs Labs: 06/11/18 06:40 06/11/18 06:40 Assessment and Plan - Assessment and Plan (Free Text) Plan: Infectious Diseases Attending Physician Attestation Patient seen and examined, discussed with medical educator. I have the pertinent clinical findings, history of present illness, medical histories, physical exam and pertinent labs and imaging. I agree with the above findings, assessment and plan. In addition,will continue Vancomycin andClotrimazole for this patient with right foot intertrigo with probable mild cellulitis. Will continue to monitor clinical response. Wound culture taken on 06/09 is most likely a superficial swab since the wound is superificial and there is no pus, therefore the GNB in that c ulture is colonization.
[2018-06-11] MEDS: CADEXOMER IODINE 0.9% GEL 10G TOP SCH (11:34)
[2018-06-11] MEDS: OLMESARTAN MEDOXOMIL 20 MG PO SCH ×2 (11:35→18:01)
[2018-06-11] MEDS: Clotrimazole 1% Cream(30 gm) TOP SCH ×2 (11:36→18:18)
--- NOTE | 2018-06-11 18:07 | RAD ---
Date of service: 06/11/2018 PROCEDURE: Right Foot Radiographs. HISTORY: right foot cellulitis COMPARISON: None. FINDINGS: BONES: Bone alignment is normal. There is periarticular bone demineralization. There is no acute displaced fracture or bone destruction. There is a prominent plantar calcaneal spur. JOINTS: There is severe degenerative osteoarthrosis in the 1st MTP joint. The remaining joint spaces are preserved. SOFT TISSUES: Normal. OTHER FINDINGS: None. IMPRESSION: No acute fracture or bone destruction. No radiographic evidence for osteomyelitis. 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
--- NOTE | 2018-06-11 20:15 | CP.PCM.PN ---
<Annel Grant - Last Filed: 06/11/18 20:09> Subjective - Date & Time of Evaluation Date of Evaluation: 06/11/18 Time of Evaluation: 20:09 - Subjective Subjective: Podiatry Progress Note for Dr. Tavarez: 78 yo female patient, seen and evaluated at bedside with Dr. Marion for right foot wound. Patient states that she is still in pain between her 4th and 5th digits, however the pain has gotten better since yesterday. She denies any new pedal complaints. Denies N/V/F/SOB. Objective - Vital Signs/Intake and Output Vital Signs (last 24 hours): Temp Pulse Resp BP Pulse Ox 98.6 F 64 18 120/70 96 06/11/18 14:00 06/11/18 14:00 06/11/18 14:00 06/11/18 14:00 06/11/18 14:00 Intake and Output: 06/11/18 06/12/18 18:59 06:59 Intake Total 360 480 Balance 360 480 - Medications Medications: Current Medications Atorvastatin Calcium (Lipitor) 10 mg PO DAILY [facility] Last Admin: 06/11/18 09:57 Dose: 10 mg Cadexomer Iodine (Iodosorb) 0 gm TOP DAILY [facility] Last Admin: 06/11/18 11:34 Dose: 10 gm Clotrimazole (Lotrimin 1%) 1 gm TOP BID [facility] Last Admin: 06/11/18 18:18 Dose: Not Given Home Med (Home Med) 0.5 unit PO DAILY [facility] Last Admin: 06/11/18 18:01 Dose: 0.5 unit Vancomycin HCl (Vancomycin 1gm) 1 gm in 250 mls @ 167 mls/hr IVPB Q12H [facility]; Protocol Last Admin: 06/11/18 18:19 Dose: 167 mls/hr Lactobacillus Acidophilus (Bacid Acidophilus) 1 cap PO BID [facility] Last Admin: 06/11/18 17:57 Dose: 1 cap - Labs Labs: 06/11/18 06:40 06/11/18 06:40 - Constitutional Appears: Well, Non-toxic, No Acute Distress - Head Exam Head Exam: ATRAUMATIC, NORMOCEPHALIC - Extremities Exam Additional comments: RLE focused exam: Vascular: DP/PT palpable, CFT <3 seconds to all digits, TG warm to warm, resolving edema to the dorsal aspect of the 4th and 5th digits. Ortho: Tenderness to palpation of 4th and 5th digit as well as 4th interspace. No gross deformities present Neuro: Gross and protective sensation intact Derm: Mild erythema noted to dorsal aspect of 4th and 5th digits; resolving. 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 No purulence, no drainage, no probe to bone, no tunneling, no tracking noted - Neurological Exam Neurological Exam: Alert, Awake, Oriented x3 - Psychiatric Exam Psychiatric exam: Normal Affect, Normal Mood Assessment and Plan - Assessment and Plan (Free Text) Assessment: 78 yo female patient seen and evaluated for right foot wound Plan: Patient seen and evaluated at bedside with Dr. Martinez VSS, WBC 7.0 Local wound care: betadine paint with DSD RLE US (06/09): No evidence for DVT in RLE R foot x-ray (06/11); No radiographic evidence of OM RLE MRI ordered (06/11); pending ID reccs appreciated; continue with IV Vanc Podiatry will continue to follow Thank you for the consult <Catherine Martinez - Last Filed: 06/22/18 20:02> Objective - Vital Signs/Intake and Output Vital Signs (last 24 hours): Temp Pulse Resp BP Pulse Ox 97.7 F 61 20 131/70 98 06/19/18 14:00 06/19/18 14:00 06/19/18 14:00 06/19/18 14:00 06/19/18 14:00 - Labs Labs: 06/18/18 07:00 06/18/18 07:00 Attending/Attestation - Attestation I have personally seen and examined this patient.: Yes I have fully participated in the care of the patient.: Yes I have reviewed all pertinent clinical information, including history, physical exam and plan: Yes
--- NOTE | 2018-06-12 05:02 | PN ---
DATE: 06/11/2018 SUBJECTIVE: The patient is a 78-year-old female. The patient was seen and examined on the bedside on 06/11/2018. Daughter was sitting on the bedside also. Still having pain in the foot, status post debridement by Podiatry yesterday. Remains afebrile. No nausea, vomiting or diarrhea. PHYSICAL EXAMINATION: VITAL SIGNS: Temperature 97.6, pulse 64, respiratory rate 20, blood pressure 120/65, pulse oximetry 95. HEENT: Head: Normocephalic and atraumatic. Eyes: PERRLA. Extraocular muscles intact. Conjunctivae clear. Nose patent. Mucous membranes moist. NECK: Supple. No carotid bruit. No JVD or thyromegaly. CHEST: Bilaterally symmetrical. HEART: S1 and S2 positive. LUNGS: Clear to auscultation. ABDOMEN: Soft. Bowel sounds present. No organomegaly. EXTREMITIES: No edema. No cyanosis. NEUROLOGIC: The patient is awake and alert. Moving all four extremities. No focal deficits. MEDICATIONS: Lipitor, isosorbide, Lomotil, vancomycin, Lactobacillus. LABORATORY DATA: White blood cell 7, hemoglobin 13.3, hematocrit 40.2, platelet 150. Sodium 142, potassium 4, BUN 11, creatinine 0.7, glucose 89. ASSESSMENT AND PLAN: Ms. Yolanda Kapadia is a 78-year-old lady with intertrigo with possibly cellulitis, interdigit status post debridement by the director volunteer services yesterday, x-ray has mild edema with hypertension and hypercholesterolemia, osteoporosis. Leukocytosis is getting better. No fever. No growth after 24 hours in the blood cultures. Wound cultures from 06/09/2018 night showing Gram-negative rods, likely culture from the superficial swab as there was no pus noted from the site, only erythema, covered with moisture. Thus, this is the most likely colonization. Currently the patient is on vancomycin, today was the day #2. According to ID, we will switch in to Keflex 500 mg every 6 hours to complete 7 days of treatment. Per the director volunteer services, continue clotrimazole locally. Lower extremity MRI is done, results are pending. Repeat labs and we will follow up. Nuha Ha MD [facility] # [id number]
[2018-06-12] MEDS: Vancomycin 1gm in NS 250ml 1 GM/250 ML BAG IVPB SCH ×2 (06:06→18:32)
[2018-06-12 07:07] LABS: HEMOGLOBIN 13.7 g/dL (12.0-16.0); MEAN CELL VOLUME 91.5 fl (80.0-105.0); MEAN CORPUSCULAR HEMOGLOBIN 30.7 pg (25.0-35.0); MEAN CORPUSCULAR HGB CONC 33.6 g/dl (31.0-37.0); MEAN PLATELET VOLUME 10.5 fl (7.0-11.0); RBC 4.46 10^6/uL (3.5-6.1); RED CELL DISTRIBUTION WIDTH 13.5 % (11.5-14.5); WHITE BLOOD COUNT 6.9 10^3/ul (4.5-11.0)
[2018-06-12 07:23] LABS: BLOOD UREA NITROGEN 16 mg/dL (7-21); CALCIUM 8.9 mg/dL (8.4-10.5); GFR NON-AFRICAN AMERICAN > 60
[2018-06-12] MEDS: Lactobacillus Acidophilus 500 MU Cap PO SCH ×2 (10:01→18:31)
[2018-06-12] MEDS: OLMESARTAN MEDOXOMIL 20 MG PO SCH ×2 (10:02→18:32)
[2018-06-12] MEDS: Clotrimazole 1% Cream(30 gm) TOP SCH ×2 (10:02→18:32)
[2018-06-12] MEDS: CADEXOMER IODINE 0.9% GEL 10G TOP SCH (10:02)
--- NOTE | 2018-06-12 10:13 | CP.PCM.PN ---
<Annel Grant - Last Filed: 06/12/18 10:15> Subjective - Date & Time of Evaluation Date of Evaluation: 06/12/18 Time of Evaluation: 10:10 - Subjective Subjective: Podiatry Progress Note for Dr. Tavarez: 78 yo female patient, seen and evaluated at bedside with Dr. Martinez for right foot interdigital ulceration. Patient is AAOx3 and in NAD. She reports continued pain to her right foot. She denies N/V/F/SOB/CP. Objective - Vital Signs/Intake and Output Vital Signs (last 24 hours): Temp Pulse Resp BP Pulse Ox 97.8 F 59 L 18 102/63 97 06/12/18 06:00 06/12/18 06:00 06/12/18 06:00 06/12/18 06:00 06/12/18 06:00 Intake and Output: 06/12/18 06/12/18 06:59 18:59 Intake Total 660 Balance 660 - Medications Medications: Current Medications Atorvastatin Calcium (Lipitor) 10 mg PO DAILY [facility] Last Admin: 06/12/18 10:01 Dose: 10 mg Cadexomer Iodine (Iodosorb) 0 gm TOP DAILY [facility] Last Admin: 06/12/18 10:02 Dose: 10 gm Clotrimazole (Lotrimin 1%) 1 gm TOP BID [facility] Last Admin: 06/12/18 10:02 Dose: Not Given Home Med (Home Med) 0.5 unit PO DAILY [facility] Last Admin: 06/12/18 10:02 Dose: Not Given Vancomycin HCl (Vancomycin 1gm) 1 gm in 250 mls @ 167 mls/hr IVPB Q12H [facility]; Protocol Last Admin: 06/12/18 06:06 Dose: 167 mls/hr Lactobacillus Acidophilus (Bacid Acidophilus) 1 cap PO BID [facility] Last Admin: 06/12/18 10:01 Dose: 1 cap - Labs Labs: 06/12/18 06:30 06/12/18 06:30 - Constitutional Appears: Well, Non-toxic, No Acute Distress - Extremities Exam Additional comments: RLE focused exam: Vascular: DP/PT palpable, CFT <3 seconds to all digits, TG warm to warm, resolving edema to the dorsal aspect of the 4th and 5th digits. Ortho: Tenderness to palpation of 4th and 5th digit as well as 4th interspace Neuro: Gross and protective sensation intact Derm: Mild erythema noted to dorsal aspect of 4th and 5th digits; resolving. 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 No purulence, no drainage, no probe to bone, no tunneling, no tracking noted - Neurological Exam Neurological Exam: Alert, Awake, Oriented x3 - Psychiatric Exam Psychiatric exam: Normal Affect, Normal Mood Assessment and Plan - Assessment and Plan (Free Text) Assessment: 78 yo female patient seen and evaluated for right foot interdigital ulceration. Plan: Patient seen and evaluated at bedside with Dr. Martinez VSS, WB6.9 Local wound care: betadine paint with DSD R foot wound culture (06/09); proteus mirabilis -Per Dr. Navarro; results most likely a superficial swab since the wound is superficial and there is no pus RLE US (06/09): No evidence for DVT in RLE R foot x-ray (06/11); No radiographic evidence of OM RLE MRI ordered (06/11); final read pending ID reccs appreciated; continue with IV Vanc Podiatry will continue to follow <Catherine Martinez - Last Filed: 06/12/18 17:14> Objective - Vital Signs/Intake and Output Vital Signs (last 24 hours): Temp Pulse Resp BP Pulse Ox 97.9 F 72 18 133/77 97 06/12/18 14:00 06/12/18 14:00 06/12/18 14:00 06/12/18 14:00 06/12/18 14:00 Intake and Output: 06/12/18 06/12/18 06:59 18:59 Intake Total 660 Balance 660 - Medications Medications: Current Medications Atorvastatin Calcium (Lipitor) 10 mg PO DAILY [facility] Last Admin: 06/12/18 10:01 Dose: 10 mg Cadexomer Iodine (Iodosorb) 0 gm TOP DAILY [facility] Last Admin: 06/12/18 10:02 Dose: 10 gm Clotrimazole (Lotrimin 1%) 1 gm TOP BID [facility] Last Admin: 06/12/18 10:02 Dose: Not Given Home Med (Home Med) 0.5 unit PO DAILY [facility] Last Admin: 06/12/18 10:02 Dose: Not Given Vancomycin HCl (Vancomycin 1gm) 1 gm in 250 mls @ 167 mls/hr IVPB Q12H [facility]; Protocol Last Admin: 06/12/18 06:06 Dose: 167 mls/hr Lactobacillus Acidophilus (Bacid Acidophilus) 1 cap PO BID [facility] Last Admin: 06/12/18 10:01 Dose: 1 cap - Labs Labs: 06/12/18 06:30 06/12/18 06:30 Attending/Attestation - Attestation I have personally seen and examined this patient.: Yes I have fully participated in the care of the patient.: Yes I have reviewed all pertinent clinical information, including history, physical exam and plan: Yes Notes (Text): 06/12/18 17:13 after review of MRi pt with + OM 5th toe; I did discuss with pt treatment o ptions of amputation vs 4-6 weeks IV antibitoitics while MRI was pending
--- NOTE | 2018-06-12 11:21 | MRI ---
Date of service: 06/11/2018 PROCEDURE: MRI of the right foot without contrast HISTORY: right foot cellulitis COMPARISON: Plain film same day TECHNIQUE: MRI of the right foot was performed in multiple planes using multiple pulse sequences. FINDINGS: Mild to moderate degenerative changes are seen in the 1st MTP joint with joint space narrowing. There are also some postoperative changes with minimal metallic artifact. There are no acute changes in this area. There is some marrow edema in the 5th toe suspicious for osteomyelitis. There is also subcutaneous edema and swelling of the 5th toe. This finding was not mentioned on the preliminary [facility] report IMPRESSION: Subcutaneous edema and swelling of the 5th toe with mild marrow edema in the 5th phalanges suspicious for osteomyelitis
--- NOTE | 2018-06-12 11:23 | CP.PCM.PN ---
<JeffLyssa - Last Filed: 06/12/18 13:00> Subjective - Date & Time of Evaluation Date of Evaluation: 06/12/18 Time of Evaluation: 08:40 - Subjective Subjective: PGY-3 Resident ID progress note for Dr. Navarro No acute overnight events. Afebrile. C/o right toe pain. Denies n/v or abdominal pain. Objective - Vital Signs/Intake and Output Vital Signs (last 24 hours): Temp Pulse Resp BP Pulse Ox 97.8 F 59 L 18 102/63 97 06/12/18 06:00 06/12/18 06:00 06/12/18 06:00 06/12/18 06:00 06/12/18 06:00 Intake and Output: 06/12/18 06/12/18 06:59 18:59 Intake Total 660 Balance 660 - Medications Medications: Current Medications Atorvastatin Calcium (Lipitor) 10 mg PO DAILY [facility] Last Admin: 06/12/18 10:01 Dose: 10 mg Cadexomer Iodine (Iodosorb) 0 gm TOP DAILY [facility] Last Admin: 06/12/18 10:02 Dose: 10 gm Clotrimazole (Lotrimin 1%) 1 gm TOP BID [facility] Last Admin: 06/12/18 10:02 Dose: Not Given Home Med (Home Med) 0.5 unit PO DAILY [facility] Last Admin: 06/12/18 10:02 Dose: Not Given Vancomycin HCl (Vancomycin 1gm) 1 gm in 250 mls @ 167 mls/hr IVPB Q12H [facility]; Protocol Last Admin: 06/12/18 06:06 Dose: 167 mls/hr Lactobacillus Acidophilus (Bacid Acidophilus) 1 cap PO BID [facility] Last Admin: 06/12/18 10:01 Dose: 1 cap - Labs Labs: 06/12/18 06:30 06/12/18 06:30 - Constitutional Appears: No Acute Distress - Head Exam Head Exam: NORMAL INSPECTION - Eye Exam Eye Exam: Normal appearance - ENT Exam ENT Exam: Mucous Membranes Moist - Respiratory Exam Respiratory Exam: Clear to Ausculation Bilateral, NORMAL BREATHING PATTERN. absent: Rales, Rhonchi, Wheezes, Respiratory Distress, Stridor - Cardiovascular Exam Cardiovascular Exam: REGULAR RHYTHM, +S1, +S2 - GI/Abdominal Exam GI & Abdominal Exam: Soft, Normal Bowel Sounds. absent: Distended, Firm, Guarding, Rigid, Tenderness - Extremities Exam Additional comments: Right 4th-5th interdigit toes with erythema and white skin covering, no drainage Assessment and Plan - Assessment and Plan (Free Text) Assessment: Patient is a 78 y/o with: Cellulites of the 4th and 5th interdigit s/p debridement by passenger service representative Osteomyolitis of the 5th MRI with Subcutaneous edema and swelling of the 5th toe with mild marrow edema in the 5th phalanges suspicious for osteomyelitis htn hld osteoporosis Plan: Leukocytosis resolved, no fever. Blood culture with so far no growth. Wound culture from 06/09/18 night growing gram negative rods, likely cultures from the superficial swab as there was no pus noted from the site, only erythema covered to moisture, thus this is most likely colonization. Continue with vanco day# 4. Follow up with the passenger service representative for recommendations on the osteomyolitis. Patient seen, examined and case discussed with Dr. Navarro. <Frantz Navarro - Last Filed: 06/12/18 22:04> Objective - Vital Signs/Intake and Output Vital Signs (last 24 hours): Temp Pulse Resp BP Pulse Ox 97.9 F 72 18 133/77 97 06/12/18 14:00 06/12/18 14:00 06/12/18 14:00 06/12/18 14:00 06/12/18 14:00 Intake and Output: 06/12/18 06/13/18 18:59 06:59 Intake Total 600 Balance 600 - Medications Medications: Current Medications Atorvastatin Calcium (Lipitor) 10 mg PO DAILY [facility] Last Admin: 06/12/18 10:01 Dose: 10 mg Cadexomer Iodine (Iodosorb) 0 gm TOP DAILY [facility] Last Admin: 06/12/18 10:02 Dose: 10 gm Clotrimazole (Lotrimin 1%) 1 gm TOP BID [facility] Last Admin: 06/12/18 18:32 Dose: Not Given Home Med (Home Med) 0.5 unit PO DAILY [facility] Last Admin: 06/12/18 18:32 Dose: 0.5 unit Vancomycin HCl (Vancomycin 1gm) 1 gm in 250 mls @ 167 mls/hr IVPB Q12H [facility]; Protocol Last Admin: 06/12/18 18:32 Dose: 167 mls/hr Lactobacillus Acidophilus (Bacid Acidophilus) 1 cap PO BID [facility] Last Admin: 06/12/18 18:31 Dose: 1 cap - Labs Labs: 06/12/18 06:30 06/12/18 06:30 Assessment and Plan - Assessment and Plan (Free Text) Plan: Infectious Diseases Attending Physician Attestation Patient seen and examined, discussed with medical referral coordinator. I have the pertinent clinical findings, history of present illness, medical histories, physical exam and pertinent labs and imaging. I agree with the above findings, assessment and plan. In addition,will continue Vancomycin and Clotrimazole for this patient with right foot intertrigo with cellulitis and probable osteomyelitis of the 5th toe. Will continue to monitor clinical response. Wound culture taken on 06/09 is most likely a superficial swab since the wound is superificial and there is no pus, therefore the GNB in that culture is colonization. Awaiting plan for possible amputation of the 5th toe.
--- NOTE | 2018-06-13 04:16 | PN ---
DATE: 06/12/2018 SUBJECTIVE: The patient is a 78-year-old female. The patient was seen and examined on the bedside on 06/12/2018. The patient was seen by Dr. Martinez for right foot interdigital ulceration. The patient is oriented x3. She reports continued pain to her right foot. She denies nausea, vomiting, fever, chills, hematuria or hematochezia. PHYSICAL EXAMINATION VITAL SIGNS: Temperature 97.8, pulse 59, respiratory rate 18, blood pressure 102/63, pulse oximetry 97. HEENT: Head: Normocephalic, atraumatic. Eyes: PERRLA. Extraocular muscles intact. Conjunctivae clear. Nose patent. NECK: Supple. No carotid bruit. No JVD or thyromegaly. CHEST: Bilaterally symmetrical. HEART: S1 and S2 positive. LUNGS: Clear to auscultation. ABDOMEN: Soft. Bowel sounds positive. No organomegaly. EXTREMITIES: No edema. No cyanosis. NEUROLOGICAL: The patient is awake and alert. Moving all 4 extremities. No focal deficits. MEDICATIONS: Lipitor, clotrimazole, vancomycin, Lactobacillus. LABORATORY DATA: White blood cell 6.9, hemoglobin 13.7, hematocrit 40.8, platelets 159. Sodium 141, potassium 4.4, BUN 16, creatinine 0.8, glucose 94. ASSESSMENT AND PLAN: Ms. Yolanda Kapadia is a 78-year-old lady with hyperchloremia, came for evaluation of right foot interdigital ulceration. Local wound care was given by tour consultant. Right foot wound culture Proteus mirabilis as per Dr. Navarro's result, most likely superficial swab. Since the wound is superficial and there is no pus, no deep venous thrombosis in right lower extremity. Right foot, no radiographic evidence of osteomyelitis, right lower extremity. Plan is continue IV vancomycin. Podiatry and ID is on the case. Lower extremity MRI is done. The patient got on the bedside debridement day before yesterday. She has hypercholesterolemia, osteoporosis. Leukocytosis is improving. Gastrointestinal and deep venous thrombosis prophylaxes. Repeat labs. Vancomycin is day 3. We will follow up. Nuha Ha MD [facility] # [id number]
[2018-06-13] MEDS: Vancomycin 1gm in NS 250ml 1 GM/250 ML BAG IVPB SCH ×2 (07:45→21:07)
[2018-06-13] MEDS: Lactobacillus Acidophilus 500 MU Cap PO SCH ×2 (09:23→18:35)
[2018-06-13] MEDS: CADEXOMER IODINE 0.9% GEL 10G TOP SCH (09:24)
[2018-06-13] MEDS: OLMESARTAN MEDOXOMIL 20 MG PO SCH (09:24)
[2018-06-13] MEDS: Clotrimazole 1% Cream(30 gm) TOP SCH ×2 (09:24→18:41)
--- NOTE | 2018-06-13 14:36 | CP.PCM.PN ---
<Annel Grant - Last Filed: 06/13/18 14:29> Subjective - Date & Time of Evaluation Date of Evaluation: 06/13/18 Time of Evaluation: 14:29 - Subjective Subjective: Podiatry Progress Note for Dr. Tavarez: 78 yo female patient, seen and evaluated at bedside with Dr. Tavarez for right foot interdigital ulceration, with suspected OM. Patient is resting comfortably at bedside and in NAD. She states that she discussed treatment options for OM with Dr. Martinez and would like to go with the IV antibiotic route vs amputation. She denies any N/V/F/SOB/CP. Objective - Vital Signs/Intake and Output Vital Signs (last 24 hours): Temp Pulse Resp BP Pulse Ox 97.7 F 55 L 20 128/80 97 06/13/18 06:00 06/13/18 06:00 06/13/18 06:00 06/13/18 06:00 06/13/18 06:00 Intake and Output: 06/13/18 06/13/18 06:59 18:59 Intake Total 780 Balance 780 - Medications Medications: Current Medications Atorvastatin Calcium (Lipitor) 10 mg PO DAILY [facility] Last Admin: 06/13/18 09:23 Dose: 10 mg Cadexomer Iodine (Iodosorb) 0 gm TOP DAILY [facility] Last Admin: 06/13/18 09:24 Dose: 1 gm Clotrimazole (Lotrimin 1%) 1 gm TOP BID [facility] Last Admin: 06/13/18 09:24 Dose: Not Given Home Med (Home Med) 0.5 unit PO DAILY [facility] Last Admin: 06/13/18 09:24 Dose: 0.5 unit Vancomycin HCl (Vancomycin 1gm) 1 gm in 250 mls @ 167 mls/hr IVPB Q12H [facility]; Protocol Last Admin: 06/13/18 07:45 Dose: 167 mls/hr Lactobacillus Acidophilus (Bacid Acidophilus) 1 cap PO BID [facility] Last Admin: 06/13/18 09:23 Dose: 1 cap - Labs Labs: 06/12/18 06:30 06/12/18 06:30 - Constitutional Appears: Well, Non-toxic, No Acute Distress - Head Exam Head Exam: ATRAUMATIC, NORMOCEPHALIC - Extremities Exam Additional comments: RLE focused exam: Vascular: DP/PT palpable, CFT <3 seconds to all digits, TG warm to warm, resolving edema to the dorsal aspect of the 4th and 5th digits. Ortho: Tenderness to palpation of 4th and 5th digit as well as 4th interspace Neuro: Gross and protective sensation intact Derm: Mild erythema noted to dorsal aspect of 4th and 5th digits; resolving. Interdigital maceration in 4th webspace, resolving with helloma mole present. No purulence, no drainage, no probe to bone, no tunneling, no tracking noted - Neurological Exam Neurological Exam: Alert, Awake, Oriented x3 - Psychiatric Exam Psychiatric exam: Normal Affect, Normal Mood Assessment and Plan - Assessment and Plan (Free Text) Assessment: 78 yo female patient, seen and evaluated at bedside with Dr. Tavarez for right foot interdigital ulceration, with suspected OM per MRI. Plan: Patient seen and evaluated at bedside with Dr. Tavarez Discussed with patient the treatment options for OM, amputation vs 4-6 IV abx - patient expressed verbal understanding and would like IV antibiotics Local wound care: betadine paint with DSD R foot wound culture (06/09); proteus mirabilis -Per Dr. Navarro; results most likely a superficial swab since the wound is superficial and there is no pus RLE US (06/09): No evidence for DVT in RLE R foot x-ray (06/11); No radiographic evidence of OM RLE MRI ordered (06/11); subcutaneous edema and swelling of the 5th toe with mild marrow edema in the 5th phalanges suspicious for OM ID reccs appreciated; continue with IV Vanc Podiatry will continue to follow <Charly Tavarez - Last Filed: 06/13/18 17:09> Objective - Vital Signs/Intake and Output Vital Signs (last 24 hours): Temp Pulse Resp BP Pulse Ox 98 F 69 20 162/96 H 97 06/13/18 14:00 06/13/18 14:00 06/13/18 14:00 06/13/18 14:00 06/13/18 14:00 Intake and Output: 06/13/18 06/13/18 06:59 18:59 Intake Total 780 Balance 780 - Medications Medications: Current Medications Atorvastatin Calcium (Lipitor) 10 mg PO DAILY [facility] Last Admin: 06/13/18 09:23 Dose: 10 mg Cadexomer Iodine (Iodosorb) 0 gm TOP DAILY [facility] Last Admin: 06/13/18 09:24 Dose: 1 gm Clotrimazole (Lotrimin 1%) 1 gm TOP BID [facility] Last Admin: 06/13/18 09:24 Dose: Not Given Home Med (Home Med) 0.5 unit PO DAILY [facility] Last Admin: 06/13/18 09:24 Dose: 0.5 unit Vancomycin HCl (Vancomycin 1gm) 1 gm in 250 mls @ 167 mls/hr IVPB Q12H [facility]; Protocol Last Admin: 06/13/18 07:45 Dose: 167 mls/hr Lactobacillus Acidophilus (Bacid Acidophilus) 1 cap PO BID [facility] Last Admin: 06/13/18 09:23 Dose: 1 cap - Labs Labs: 06/12/18 06:30 06/12/18 06:30 Attending/Attestation - Attestation I have personally seen and examined this patient.: Yes I have fully participated in the care of the patient.: Yes I have reviewed all pertinent clinical information, including history, physical exam and plan: Yes
--- NOTE | 2018-06-13 22:28 | CP.PCM.PN ---
Subjective - Date & Time of Evaluation Date of Evaluation: 06/13/18 Time of Evaluation: 14:00 - Subjective Subjective: No fevers, not in distress, a little less pain in the right foot. Objective - Vital Signs/Intake and Output Vital Signs (last 24 hours): Temp Pulse Resp BP Pulse Ox 97.9 F 72 18 133/77 97 06/12/18 14:00 06/12/18 14:00 06/12/18 14:00 06/12/18 14:00 06/12/18 14:00 Intake and Output: 06/12/18 06/13/18 18:59 06:59 Intake Total 600 Balance 600 - Medications Medications: Current Medications Atorvastatin Calcium (Lipitor) 10 mg PO DAILY [facility] Last Admin: 06/12/18 10:01 Dose: 10 mg Cadexomer Iodine (Iodosorb) 0 gm TOP DAILY [facility] Last Admin: 06/12/18 10:02 Dose: 10 gm Clotrimazole (Lotrimin 1%) 1 gm TOP BID [facility] Last Admin: 06/12/18 18:32 Dose: Not Given Home Med (Home Med) 0.5 unit PO DAILY [facility] Last Admin: 06/12/18 18:32 Dose: 0.5 unit Vancomycin HCl (Vancomycin 1gm) 1 gm in 250 mls @ 167 mls/hr IVPB Q12H [facility]; Protocol Last Admin: 06/12/18 18:32 Dose: 167 mls/hr Lactobacillus Acidophilus (Bacid Acidophilus) 1 cap PO BID [facility] Last Admin: 06/12/18 18:31 Dose: 1 cap - Labs Labs: 06/12/18 06:30 06/12/18 06:30 - Constitutional Appears: Chronically Ill - Head Exam Head Exam: NORMAL INSPECTION - Neck Exam Neck Exam: absent: Meningismus - Respiratory Exam Respiratory Exam: Decreased Breath Sounds - Cardiovascular Exam Cardiovascular Exam: +S1, +S2 - GI/Abdominal Exam GI & Abdominal Exam: Soft. absent: Tenderness - Extremities Exam Additional comments: right foot with dressings in place Assessment and Plan - Assessment and Plan (Free Text) Plan: Assessment right foot intertrigo with cellulitis and probable osteomyelitis of the 5th toe Plan continue on Zyvox and Cefepime and will need 4-6 weeks of antibiotics with weekly CRP, CBC, CMP if there is no plan for surgery will need to follow up with Podiatry as an outpatient
--- NOTE | 2018-06-14 01:12 | PN ---
DATE: 06/12/2018 SUBJECTIVE: Patient is a 78-year-old female. Patient was seen and examined at the bedside on 06/12/2018, looking comfortable. No fever, no chills. No nausea, vomiting, or diarrhea. Seen by Podiatry and ID. Patient has multiple questions. I tried to answer all. Patient was given option for amputation or IV antibiotics by Podiatry. According to Podiatry, patient accepted the choice of IV antibiotics. No fever, no chills. PHYSICAL EXAMINATION: VITAL SIGNS: Temperature 97.7, pulse 55, respiratory rate 20, blood pressure 120/80, pulse oximetry 97. HEENT: Head: Normocephalic, atraumatic. Eyes: PERRLA. Extraocular muscles intact. Conjunctivae clear. Nose patent. Mucous membranes moist. NECK: Supple. No carotid bruit. No JVD or thyromegaly. CHEST: Bilaterally symmetrical. HEART: S1 and S2 positive. LUNGS: Clear to auscultation. ABDOMEN: Soft. Bowel sounds present. No organomegaly. EXTREMITIES: No edema. No cyanosis. NEUROLOGICAL: The patient is awake and alert. Moving all 4 extremities. No focal deficits. MEDICATIONS: Lipitor, isosorbide, Lotrimin, vancomycin, Lactobacillus. LABORATORY DATA: White blood cells 6.9, hemoglobin 13.7, hematocrit 40.8, platelet count 159. Sodium 141, potassium 4.4, BUN 16, creatinine 0.8, glucose 94. ASSESSMENT AND PLAN: Ms. Yolanda Kapadia is a 78-year-old lady with hyperchloremia, has right foot interdigital ulceration and suspected osteomyelitis as per MRI, as per Podiatry, hypertension, hypercholesterolemia, osteoporosis. Leukocytosis improving with antibiotics. Wound cultures done. MRI done, reviewed by me. Patient is getting IV antibiotics. MRI shows subcutaneous edema and swelling of the fifth toe with mild marrow edema in the fifth phalanges, suspicious of osteomyelitis, vancomycin day #5. Discussion done with the patient and social workers and patient's nurse. We will continue present treatment. Repeat labs. We will follow up. Nuha Ha MD
[2018-06-14] MEDS: Cefepime 1gm in NS 100ml 1 GM/100 ML BAG IVPB SCH ×3 (06:16→21:07)
[2018-06-14] MEDS: Linezolid 600 mg in D5W 300 ml 600 MG/300 ML BAG IVPB SCH ×2 (09:42→21:09)
[2018-06-14] MEDS: CADEXOMER IODINE 0.9% GEL 10G TOP SCH (09:43)
[2018-06-14] MEDS: Lactobacillus Acidophilus 500 MU Cap PO SCH ×2 (09:43→18:35)
[2018-06-14] MEDS: Clotrimazole 1% Cream(30 gm) TOP SCH ×2 (09:43→18:35)
[2018-06-14] MEDS: OLMESARTAN MEDOXOMIL 20 MG PO SCH (09:43)
[2018-06-14] MEDS ORDERED: MOMETASONE 0.1% TOP SCH (10:00)
--- NOTE | 2018-06-14 10:07 | CP.PCM.PN ---
Subjective - Date & Time of Evaluation Date of Evaluation: 06/14/18 Time of Evaluation: 10:05 - Subjective Subjective: Podiatry Progress Note for Dr. Tavarez: 78 yo female patient, seen and evaluated at bedside with Dr. Tavarez for right foot interdigital ulceration, with suspected OM. Patient is resting comfortably at bedside and in NAD. She states that she discussed treatment options for OM with Dr. Martinez and would like to go with the IV antibiotic route vs amputation. She denies any N/V/F/SOB/CP. Objective - Vital Signs/Intake and Output Vital Signs (last 24 hours): Temp Pulse Resp BP Pulse Ox 98.4 F 68 20 126/67 97 06/14/18 06:00 06/14/18 06:00 06/14/18 06:00 06/14/18 06:00 06/14/18 06:00 Intake and Output: 06/14/18 06/14/18 06:59 18:59 Intake Total 660 Balance 660 - Medications Medications: Current Medications Atorvastatin Calcium (Lipitor) 10 mg PO DAILY [facility] Last Admin: 06/14/18 09:42 Dose: 10 mg Cadexomer Iodine (Iodosorb) 0 gm TOP DAILY [facility] Last Admin: 06/14/18 09:43 Dose: 1 gm Clotrimazole (Lotrimin 1%) 1 gm TOP BID [facility] Last Admin: 06/14/18 09:43 Dose: Not Given Diphenhydramine HCl (Benadryl) 25 mg PO HS PRN PRN Reason: Insomnia Home Med (Home Med) 0.5 unit PO DAILY [facility] Last Admin: 06/14/18 09:43 Dose: 0.5 unit Cefepime HCl (Maxipime 1gm) 1 gm in 100 mls @ 100 mls/hr IVPB Q8 [facility]; Protocol Last Admin: 06/14/18 06:16 Dose: 100 mls/hr Linezolid (Zyvox 600mg/300ml D5w) 600 mg in 300 mls @ 200 mls/hr IVPB Q12 [facility]; Protocol Stop: 06/21/18 10:01 Last Admin: 06/14/18 09:42 Dose: 200 mls/hr Lactobacillus Acidophilus (Bacid Acidophilus) 1 cap PO BID [facility] Last Admin: 06/14/18 09:43 Dose: 1 cap Mometasone Furoate (Elocon Ointment) 0 gm TOP DAILY [facility] Last Admin: 06/14/18 09:42 Dose: 1 anti - Labs Labs: 06/12/18 06:30 06/12/18 06:30 - Constitutional Appears: Well, Non-toxic, No Acute Distress - Head Exam Head Exam: ATRAUMATIC, NORMOCEPHALIC - Extremities Exam Additional comments: RLE focused exam: Vascular: DP/PT palpable, CFT <3 seconds to all digits, TG warm to warm, resolving edema to the dorsal aspect of the 4th and 5th digits. Ortho: Tenderness to palpation of 4th and 5th digit as well as 4th interspace Neuro: Gross and protective sensation intact Derm: Mild erythema noted to dorsal aspect of 4th and 5th digits; resolving. Interdigital maceration in 4th webspace, resolving with helloma mole present. No purulence, no drainage, no probe to bone, no tunneling, no tracking noted - Neurological Exam Neurological Exam: Alert, Awake, Normal Gait, Oriented x3 - Psychiatric Exam Psychiatric exam: Normal Affect, Normal Mood Assessment and Plan - Assessment and Plan (Free Text) Assessment: 78 yo female patient, seen and evaluated at bedside with Dr. Tavarez for right foot interdigital ulceration, with suspected OM per MRI. Plan: Patient seen and evaluated at bedside with Dr. Tavarez Discussed with patient the treatment options for OM, amputation vs 4-6 weeks of IV abx - patient expressed verbal understanding and would like IV antibiotics Local wound care: betadine paint with DSD R foot wound culture (06/09); proteus mirabilis -Per Dr. Navarro; results most likely a superficial swab since the wound is superficial and there is no pus RLE US (06/09): No evidence for DVT in RLE R foot x-ray (06/11); No radiographic evidence of OM RLE MRI ordered (06/11); subcutaneous edema and swelling of the 5th toe with mild marrow edema in the 5th phalanges suspicious for OM ID reccs appreciated; continue with IV Vanc Podiatry will continue to follow while the patient is in house.
[2018-06-14] MEDS: MOMETASONE 0.1% TOP SCH ×2 (15:40→18:35)
--- NOTE | 2018-06-14 23:49 | PN ---
DATE: 06/14/2018 SUBJECTIVE: Patient was seen and examined on the bedside on 06/14/2018, looking comfortable. Still has ulcer on the right foot interdigital area, suspective of osteomyelitis, under care of Podiatry and ID. No fever, no chills. No nausea, vomiting diarrhea. No hematuria or hematochezia. No headache. No dizziness. PHYSICAL EXAMINATION: VITAL SIGNS: Temperature 98.4, pulse 68, respiratory rate 20, blood pressure 126/67, pulse oximetry 97%. HEENT: Head: Normocephalic, atraumatic. Eyes: PERRLA. Extraocular muscles intact. Conjunctivae clear. Nose patent. Mucous membranes moist. NECK: Supple. No carotid bruit. No JVD or thyromegaly. CHEST: Bilaterally symmetrical. HEART: S1 and S2 positive. LUNGS: Clear to auscultation. ABDOMEN: Soft. Bowel sounds positive. No organomegaly. EXTREMITIES: No edema. No cyanosis. Right foot has a dressing. NEUROLOGICAL: Awake and alert. Follows simple commands. Oriented x3. MEDICATIONS: Lipitor, isosorbide, Lotrimin, Benadryl, Maxipime, Zyvox, Bacid, Elocon ointment. LABORATORY DATA: White blood cell is 6.9, hemoglobin 13.7, hematocrit 40.8, platelet count 159. Sodium 141, potassium 4.4, BUN 16, creatinine 0.8, glucose 94. ASSESSMENT AND PLAN: Ms. Yolanda Kapadia is a 78-year-old lady with right foot interdigital ulceration with suspected osteomyelitis as per MRI and Podiatry. The patient was offered either surgery or IV antibiotics; the patient chose IV antibiotics, wants to give him a chance. We will give 4 to 6 weeks of IV antibiotics, local wound care, Betadine paint , The patient has history of hypertension, hypercholesterolemia, osteoporosis. Leukocytosis improving. Sleep is okay. Appetite is okay. Bowel movement is okay. The patient is tolerating treatment very well. Length of time discussion done. Gastrointestinal and deep venous thrombosis prophylaxes given. We will follow up. Nuha Ha MD [facility] # [id number]
--- NOTE | 2018-06-15 01:27 | PN ---
DATE: 06/14/2018 SUBJECTIVE: The patient is in bed, was seen earlier today in 564, bed 2. No fevers, no chills. PHYSICAL EXAMINATION: VITAL SIGNS: Temperature is 98, blood pressure is 119/ , respiratory rate of 18. HEENT: Unremarkable. NECK: Supple. LUNGS: Have decreased breath sounds. HEART: Normal S1 and S2. ABDOMEN: Soft. Nontender. LABORATORY DATA: Reveals the patient's white count of 6.9, hemoglobin of 13. Vancomycin trough of 14 and 0.9. Culture results; Proteus mirabilis which is pansensitive, coag-negative staph, no sensitivity is done. Review of orders reveals the patient to be on linezolid and cefepime. ASSESSMENT AND PLAN: A 78-year-old female with a right foot intertrigo with cellulitis with Proteus and coag-negative staph with probable osteomyelitis of the fifth toe, on Zyvox and cefepime. Recommended CBC, SMA-18, sed rate, C-reactive protein. The patient has MRI read by Dr. Dang on the with marrow edema suspicious for osteomyelitis. We will order a sed rate and C-reactive protein. Should have antifungal cream between the toes. The patient does have clotrimazole ordered, maybe able to switch to p.o. Zyvox and once daily ceftriaxone since the Proteus is pansensitive with sed rate and C-reactive protein. Nakul Jerome MD
[2018-06-15] MEDS: Cefepime 1gm in NS 100ml 1 GM/100 ML BAG IVPB SCH ×3 (05:31→21:39)
[2018-06-15] MEDS: CADEXOMER IODINE 0.9% GEL 10G TOP SCH (10:24)
[2018-06-15] MEDS: Lactobacillus Acidophilus 500 MU Cap PO SCH ×2 (10:41→17:42)
[2018-06-15] MEDS: MOMETASONE 0.1% TOP SCH ×3 (10:41→17:42)
[2018-06-15] MEDS: Linezolid 600 mg in D5W 300 ml 600 MG/300 ML BAG IVPB SCH ×2 (10:41→23:01)
[2018-06-15] MEDS: OLMESARTAN MEDOXOMIL 20 MG PO SCH (10:42)
[2018-06-15] MEDS: Clotrimazole 1% Cream(30 gm) TOP SCH ×2 (10:49→17:42)
--- NOTE | 2018-06-15 11:55 | CP.PCM.CON ---
<Lindsay Hadley - Last Filed: 06/15/18 18:42> History of Present Illness - History of Present Illness History of Present Illness: Podiatry Progress Note for Dr. Tavarez: 78 yo female patient, seen and evaluated at bedside with Dr. Tavarez for right foot interdigital ulceration, with suspected OM. Patient is resting comfortably at bedside and in NAD. She states that she discussed treatment options for OM with Dr. Martinez and would like to go with the IV antibiotic route vs amputation. She denies any N/V/F/SOB/CP. Past Patient History - Infectious Disease Hx of Infectious Diseases: None - Tetanus Immunizations Tetanus Immunization: Unknown - Past Medical History & Family History Past Medical History?: Yes Past Family History: Reviewed and not pertinent - Past Social History Smoking Status: Never Smoked Alcohol: None Drugs: Denies Home Situation {Lives}: With Family - CARDIAC Hx Hypercholesterolemia: Yes Hx Hypertension: Yes - PULMONARY Hx Asthma: Yes - NEUROLOGICAL Hx Neurological Disorder: No - HEENT Hx HEENT Problems: No - RENAL Hx Chronic Kidney Disease: No - ENDOCRINE/METABOLIC Hx Endocrine Disorders: No - HEMATOLOGICAL/ONCOLOGICAL Hx Blood Disorders: No - INTEGUMENTARY Hx Dermatological Problems: No - MUSCULOSKELETAL/RHEUMATOLOGICAL Hx Falls: Yes Hx Osteoporosis: Yes - GASTROINTESTINAL Hx Gastrointestinal Disorders: No - GENITOURINARY/GYNECOLOGICAL Hx Genitourinary Disorders: No - PSYCHIATRIC Hx Psychophysiologic Disorder: No - SURGICAL HISTORY Hx Cholecystectomy: Yes Hx Orthopedic Surgery: Yes (Right foot) - ANESTHESIA Hx Anesthesia: Yes Hx Anesthesia Reactions: No Hx Malignant Hyperthermia: No Meds Allergies/Adverse Reactions: Allergies Allergy/AdvReac Type Severity Reaction Status Date / Time No Known Allergies Allergy Verified 11/25/15 22:45 - Medications Medications: Current Medications Atorvastatin Calcium (Lipitor) 10 mg PO DAILY [facility] Last Admin: 06/15/18 10:41 Dose: 10 mg Cadexomer Iodine (Iodosorb) 0 gm TOP DAILY [facility] Last Admin: 06/14/18 09:43 Dose: 1 gm Clotrimazole (Lotrimin 1%) 1 gm TOP BID [facility] Last Admin: 06/15/18 10:49 Dose: 1 % Diphenhydramine HCl (Benadryl) 25 mg PO HS PRN PRN Reason: Insomnia Last Admin: 06/14/18 21:07 Dose: 25 mg Home Med (Home Med) 0.5 unit PO DAILY [facility] Last Admin: 06/15/18 10:42 Dose: 0.5 unit Cefepime HCl (Maxipime 1gm) 1 gm in 100 mls @ 100 mls/hr IVPB Q8 [facility]; Protocol Last Admin: 06/15/18 05:31 Dose: 100 mls/hr Linezolid (Zyvox 600mg/300ml D5w) 600 mg in 300 mls @ 200 mls/hr IVPB Q12 [facility]; Protocol Stop: 06/21/18 10:01 Last Admin: 06/15/18 10:41 Dose: 200 mls/hr Lactobacillus Acidophilus (Bacid Acidophilus) 1 cap PO BID [facility] Last Admin: 06/15/18 10:41 Dose: 1 cap Mometasone Furoate (Elocon Ointment) 1 gm TOP TID [facility] Last Admin: 06/15/18 10:41 Dose: 1 % Physical Exam - Constitutional Appears: Well, Non-toxic, No Acute Distress - Head Exam Head Exam: ATRAUMATIC, NORMOCEPHALIC - Extremities Exam Additional comments: RLE focused exam: Vascular: DP/PT palpable, CFT <3 seconds to all digits, TG warm to warm, resolving edema to the dorsal aspect of the 4th and 5th digits. Ortho: Tenderness to palpation of 4th and 5th digit as well as 4th interspace Neuro: Gross and protective sensation intact Derm: Mild erythema noted to dorsal aspect of 4th and 5th digits; resolving. Interdigital maceration in 4th webspace, resolving with helloma mole present. No purulence, no drainage, no probe to bone, no tunneling, no tracking noted - Neurological Exam Neurological exam: Alert, Oriented x3 - Psychiatric Exam Psychiatric exam: Normal Affect - Skin Skin Exam: Normal Color Results - Vital Signs Recent Vital Signs: Last Vital Signs Temp 97.7 F 06/15/18 06:00 Pulse 59 L 06/15/18 06:00 Resp 20 06/15/18 06:00 BP 137/67 06/15/18 06:00 Pulse Ox 97 06/15/18 06:00 - Labs Result Diagrams: 06/12/18 06:30 06/12/18 06:30 Labs: Laboratory Results - last 24 hr 06/15/18 07:00 ESR 9 Assessment & Plan - Assessment and Plan (Free Text) Assessment: 78 yo female patient, seen and evaluated at bedside with Dr. Tavarez for right foot interdigital ulceration, with suspected OM per MRI. Plan: Patient seen and evaluated at bedside with Dr. Tavarez Discussed with patient the treatment options for OM, amputation vs 4-6 weeks of IV abx - patient expressed verbal understanding and would like IV antibiotics Local wound care: betadine paint with DSD R foot wound culture (06/09); proteus mirabilis -Per Dr. Navarro; results most likely a superficial swab since the wound is superficial and there is no pus RLE US (06/09): No evidence for DVT in RLE R foot x-ray (06/11); No radiographic evidence of OM RLE MRI ordered (06/11); subcutaneous edema and swelling of the 5th toe with mild marrow edema in the 5th phalanges suspicious for OM ID reccs appreciated; continue with IV Vanc Podiatry will continue to follow while the patient is in house. <Charly Tavarez - Last Filed: 06/16/18 09:04> Meds - Medications Medications: Current Medications Atorvastatin Calcium (Lipitor) 10 mg PO DAILY [facility] Last Admin: 06/15/18 10:41 Dose: 10 mg Cadexomer Iodine (Iodosorb) 0 gm TOP DAILY [facility] Last Admin: 06/15/18 10:24 Dose: 10 gm Clotrimazole (Lotrimin 1%) 1 gm TOP BID [facility] Last Admin: 06/15/18 17:42 Dose: 1 % Diphenhydramine HCl (Benadryl) 25 mg PO HS PRN PRN Reason: Insomnia Last Admin: 06/15/18 21:41 Dose: 25 mg Home Med (Home Med) 0.5 unit PO DAILY [facility] Last Admin: 06/15/18 10:42 Dose: 0.5 unit Cefepime HCl (Maxipime 1gm) 1 gm in 100 mls @ 100 mls/hr IVPB Q8 [facility]; Protocol Last Admin: 06/16/18 08:09 Dose: 100 mls/hr Linezolid (Zyvox 600mg/300ml D5w) 600 mg in 300 mls @ 200 mls/hr IVPB Q12 [facility]; Protocol Stop: 06/21/18 10:01 Last Admin: 06/15/18 23:01 Dose: 200 mls/hr Lactobacillus Acidophilus (Bacid Acidophilus) 1 cap PO BID [facility] Last Admin: 06/15/18 17:42 Dose: 1 cap Mometasone Furoate (Elocon Ointment) 1 gm TOP TID [facility] Last Admin: 06/15/18 17:42 Dose: 1 % Results - Vital Signs Recent Vital Signs: Last Vital Signs Temp 97.9 F 06/16/18 06:00 Pulse 67 06/16/18 06:00 Resp 20 06/16/18 06:00 BP 118/24 L 06/16/18 06:00 Pulse Ox 97 06/16/18 06:00 - Labs Result Diagrams: 06/12/18 06:30 06/12/18 06:30 Labs: Laboratory Results - last 24 hr 06/15/18 06/15/18 07:00 07:00 ESR 9 C-Reactive Protein < 5.00 Attending/Attestation - Attestation I have personally seen and examined this patient.: Yes I have fully participated in the care of the patient.: Yes I have reviewed all pertinent clinical information: Yes
--- NOTE | 2018-06-15 15:29 | CP.PCM.PN ---
Subjective - Date & Time of Evaluation Date of Evaluation: 06/15/18 Time of Evaluation: 09:45 - Subjective Subjective: resting comfortably, NAD, denies chest pain, no SOB Objective - Vital Signs/Intake and Output Vital Signs (last 24 hours): Temp Pulse Resp BP Pulse Ox 98 F 64 20 117/68 97 06/15/18 14:00 06/15/18 14:00 06/15/18 14:00 06/15/18 14:00 06/15/18 14:00 Intake and Output: 06/15/18 06/15/18 06:59 18:59 Intake Total 500 480 Balance 500 480 - Medications Medications: Current Medications Atorvastatin Calcium (Lipitor) 10 mg PO DAILY [facility] Last Admin: 06/15/18 10:41 Dose: 10 mg Cadexomer Iodine (Iodosorb) 0 gm TOP DAILY [facility] Last Admin: 06/14/18 09:43 Dose: 1 gm Clotrimazole (Lotrimin 1%) 1 gm TOP BID [facility] Last Admin: 06/15/18 10:49 Dose: 1 % Diphenhydramine HCl (Benadryl) 25 mg PO HS PRN PRN Reason: Insomnia Last Admin: 06/14/18 21:07 Dose: 25 mg Home Med (Home Med) 0.5 unit PO DAILY [facility] Last Admin: 06/15/18 10:42 Dose: 0.5 unit Cefepime HCl (Maxipime 1gm) 1 gm in 100 mls @ 100 mls/hr IVPB Q8 [facility]; Protocol Last Admin: 06/15/18 05:31 Dose: 100 mls/hr Linezolid (Zyvox 600mg/300ml D5w) 600 mg in 300 mls @ 200 mls/hr IVPB Q12 [facility]; Protocol Stop: 06/21/18 10:01 Last Admin: 06/15/18 10:41 Dose: 200 mls/hr Lactobacillus Acidophilus (Bacid Acidophilus) 1 cap PO BID [facility] Last Admin: 06/15/18 10:41 Dose: 1 cap Mometasone Furoate (Elocon Ointment) 1 gm TOP TID [facility] Last Admin: 06/15/18 10:41 Dose: 1 % - Labs Labs: 06/12/18 06:30 06/12/18 06:30 - Respiratory Exam Respiratory Exam: Clear to Ausculation Bilateral, NORMAL BREATHING PATTERN - Cardiovascular Exam Cardiovascular Exam: REGULAR RHYTHM - GI/Abdominal Exam GI & Abdominal Exam: Normal Bowel Sounds - Extremities Exam Additional comments: mild erythema of lower extrem - Neurological Exam Neurological Exam: Alert, Awake - Skin Skin Exam: Dry, Warm Assessment and Plan (1) Cellulitis of foot Status: Acute (2) Leukocytosis (leucocytosis) Status: Acute - Assessment and Plan (Free Text) Plan: continue IV Abx, cefepime/zyvox, ID follow-up, Dr. Ha to resume care of patient in am
--- NOTE | 2018-06-15 21:45 | PN ---
DATE: 06/15/2018 SUBJECTIVE: The patient is seen earlier this morning in 564, bed 2. No fevers, no chills. No nausea. PHYSICAL EXAMINATION: VITAL SIGNS: Temperature is 97, blood pressure is 130/60, respiratory rate 20. HEENT: Unremarkable. NECK: Supple. LUNGS: Have decreased breath sounds. HEART: Normal S1, S2. ABDOMEN: Soft, nontender. LABORATORY EXAMINATION: Reveals a white count of 6.9, hemoglobin of 13, platelets of 159. BUN of 16, creatinine of 0.8. Toxicology is noted and vanco trough is 11.49. Microbiology reveals Proteus mirabilis and coag-negative staph from the foot cultures. The Proteus mirabilis is pansensitive. The staph coag-negative has no sensitivity yet and so far, thus far and blood cultures are negative. ASSESSMENT AND PLAN: A 78-year-old female with a right foot intertrigo with cellulitis with Proteus and sensitive coag-negative staph, probable osteomyelitis of the fifth toe, on Zyvox and cefepime and with an MRI was consistent with osteo. Recommend weekly CBC, SMA-18, sed rate, C-reactive protein and maybe able to use p.o. Zyvox and IV ceftriaxone upon discharge and with weekly laboratories and treat as osteomyelitis. Dr. Ha's note from yesterday is reviewed. Nakul Jerome MD
[2018-06-16] MEDS: Cefepime 1gm in NS 100ml 1 GM/100 ML BAG IVPB SCH ×3 (08:09→21:05)
[2018-06-16] MEDS: Lactobacillus Acidophilus 500 MU Cap PO SCH ×2 (09:32→17:17)
[2018-06-16] MEDS: MOMETASONE 0.1% TOP SCH ×3 (09:32→17:18)
[2018-06-16] MEDS: OLMESARTAN MEDOXOMIL 20 MG PO SCH (09:32)
[2018-06-16] MEDS: CADEXOMER IODINE 0.9% GEL 10G TOP SCH (09:32)
[2018-06-16] MEDS: Clotrimazole 1% Cream(30 gm) TOP SCH ×2 (09:33→17:18)
[2018-06-16] MEDS: Linezolid 600 mg in D5W 300 ml 600 MG/300 ML BAG IVPB SCH ×2 (09:33→22:29)
--- NOTE | 2018-06-16 11:11 | CP.PCM.PN ---
<Annel Grant - Last Filed: 06/16/18 11:07> Subjective - Date & Time of Evaluation Date of Evaluation: 06/16/18 Time of Evaluation: 11:08 - Subjective Subjective: Podiatry Progress Note for Dr. Tavarez: 78 yo female patient, seen and evaluated at bedside for right foot interdigital ulceration, with suspected OM. Patient is resting comfortably, denies any acute events overnight, and in NAD. Patient denies N/V/F/SOB. Objective - Vital Signs/Intake and Output Vital Signs (last 24 hours): Temp Pulse Resp BP Pulse Ox 97.9 F 67 20 118/24 L 97 06/16/18 06:00 06/16/18 06:00 06/16/18 06:00 06/16/18 06:00 06/16/18 06:00 Intake and Output: 06/16/18 06/16/18 06:59 18:59 Intake Total 180 Balance 180 - Medications Medications: Current Medications Atorvastatin Calcium (Lipitor) 10 mg PO DAILY [facility] Last Admin: 06/16/18 09:32 Dose: 10 mg Cadexomer Iodine (Iodosorb) 0 gm TOP DAILY [facility] Last Admin: 06/16/18 09:32 Dose: 10 gm Clotrimazole (Lotrimin 1%) 1 gm TOP BID [facility] Last Admin: 06/16/18 09:33 Dose: Not Given Diphenhydramine HCl (Benadryl) 25 mg PO HS PRN PRN Reason: Insomnia Last Admin: 06/15/18 21:41 Dose: 25 mg Home Med (Home Med) 0.5 unit PO DAILY [facility] Last Admin: 06/16/18 09:32 Dose: 0.5 unit Cefepime HCl (Maxipime 1gm) 1 gm in 100 mls @ 100 mls/hr IVPB Q8 [facility]; Protocol Last Admin: 06/16/18 08:09 Dose: 100 mls/hr Linezolid (Zyvox 600mg/300ml D5w) 600 mg in 300 mls @ 200 mls/hr IVPB Q12 [facility]; Protocol Stop: 06/21/18 10:01 Last Admin: 06/16/18 09:33 Dose: 200 mls/hr Lactobacillus Acidophilus (Bacid Acidophilus) 1 cap PO BID [facility] Last Admin: 06/16/18 09:32 Dose: 1 cap Mometasone Furoate (Elocon Ointment) 1 gm TOP TID [facility] Last Admin: 06/16/18 09:32 Dose: 1 % - Labs Labs: 06/12/18 06:30 06/12/18 06:30 - Constitutional Appears: Well, Non-toxic, No Acute Distress - Head Exam Head Exam: ATRAUMATIC, NORMOCEPHALIC - Extremities Exam Additional comments: RLE focused exam: Vascular: DP/PT palpable, CFT <3 seconds to all digits, TG warm to warm, resolving edema to the dorsal aspect of the 4th and 5th digits. Ortho: Tenderness to palpation of 4th and 5th digit as well as 4th interspace Neuro: Gross and protective sensation intact Derm: Interdigital maceration in 4th webspace, resolving with helloma mole present. No purulence, no drainage, no probe to bone, no tunneling, no tracking noted. No cellulitis, no erythema - Neurological Exam Neurological Exam: Alert, Awake, Oriented x3 - Psychiatric Exam Psychiatric exam: Normal Affect, Normal Mood Assessment and Plan - Assessment and Plan (Free Text) Assessment: 78 yo female patient, seen and evaluated at bedside with Dr. Tavarez for R interdigital ulceration, with suspected OM per MRI. Plan: Patient seen and evaluated at bedside with Dr. Tavarez Discussed with patient the treatment options for OM, amputation vs 4-6 weeks of IV abx - patient expressed verbal understanding and would like IV antibiotics Local wound care: betadine paint with DSD RLE US (06/09): No evidence for DVT in RLE R foot x-ray (06/11); No radiographic evidence of OM RLE MRI ordered (06/11); subcutaneous edema and swelling of the 5th toe with mild marrow edema in the 5th phalanges suspicious for OM Continue with IV abx; Linezolid, Cefepime -Per Dr. Jerome; Recommend weekly CBC, SMA-18, sed rate, C-reactive protein, and may be able to use PO Zyvox and IV ceftriaxone upon d/c Podiatry will continue to follow while the patient is in house; pending d/c patient to follow up in wound care center for continued care <Charly Tavarez - Last Filed: 06/17/18 12:08> Objective - Vital Signs/Intake and Output Vital Signs (last 24 hours): Temp Pulse Resp BP Pulse Ox 97.7 F 68 20 152/63 H 97 06/17/18 06:00 06/17/18 06:00 06/17/18 06:00 06/17/18 06:00 06/17/18 06:00 Intake and Output: 06/17/18 06/17/18 06:59 18:59 Intake Total 1080 Balance 1080 - Medications Medications: Current Medications Atorvastatin Calcium (Lipitor) 10 mg PO DAILY [facility] Last Admin: 06/16/18 09:32 Dose: 10 mg Cadexomer Iodine (Iodosorb) 0 gm TOP DAILY [facility] Last Admin: 06/16/18 09:32 Dose: 10 gm Clotrimazole (Lotrimin 1%) 1 gm TOP BID [facility] Last Admin: 06/16/18 17:18 Dose: Not Given Diphenhydramine HCl (Benadryl) 25 mg PO HS PRN PRN Reason: Insomnia Last Admin: 06/16/18 21:05 Dose: 25 mg Home Med (Home Med) 0.5 unit PO DAILY [facility] Last Admin: 06/16/18 09:32 Dose: 0.5 unit Ceftriaxone Sodium (Rocephin 2 Gm Ivpb) 2 gm in 100 mls @ 100 mls/hr IVPB DAILY [facility]; Protocol Stop: 07/15/18 10:01 Lactobacillus Acidophilus (Bacid Acidophilus) 1 cap PO BID [facility] Last Admin: 06/16/18 17:17 Dose: 1 cap Linezolid (Zyvox) 600 mg PO BID [facility]; Protocol Stop: 07/15/18 10:01 Mometasone Furoate (Elocon Ointment) 1 gm TOP TID [facility] Last Admin: 06/16/18 17:18 Dose: 1 % - Labs Labs: 06/12/18 06:30 06/12/18 06:30 Attending/Attestation - Attestation I have personally seen and examined this patient.: Yes I have fully participated in the care of the patient.: Yes I have reviewed all pertinent clinical information, including history, physical exam and plan: Yes
--- NOTE | 2018-06-17 02:07 | PN ---
DATE: 06/16/2018 SUBJECTIVE: The patient is in bed in no acute distress, nontoxic. No fevers and no chills. PHYSICAL EXAMINATION: VITAL SIGNS: Temperature is 97, blood pressure is 128/80, respiratory rate of 18. HEENT: Examination of HEENT is unremarkable. NECK: Supple. LUNGS: Have decreased breath sounds. HEART: Normal S1, S2. ABDOMEN: Soft, nontender. LABORATORY EXAMINATION: Reveals a white count of 6.9, hemoglobin of 13, platelets of 169. Chemistries are noted. The BUN of 16, creatinine of 0.8. Toxicology is noted and vanco trough of 14.9. ASSESSMENT AND PLAN: A 78-year-old female with right foot intertrigo and with cellulitis and Proteus and sensitive coag-negative staph, probable osteomyelitis of the fifth toe, on Zyvox and cefepime, consistent with osteomyelitis. Recommend sed rate, C-reactive protein, CBC, SMA-18. Review of orders reveals the patient to be on Zyvox, we will change that to p.o. Review of the microbiology reveals the Proteus mirabilis, is pansensitive and a coag-negative staph, has not had any sensitivity done. May use p.o. Zyvox for 4 to 6 weeks and IV ceftriaxone also 4 to 6 weeks for Proteus and staph osteomyelitis with a weekly CBC, SMA-18, sed rate, C-reactive protein. We will follow closely with you. Review of bone marrow reveals , the patient's platelets is holding at 169, hemoglobin of 13 with white count of 6.9. In summary, may use Zyvox 600 mg p.o. b.i.d. x28 days and ceftriaxone 2 g daily every 24 hours also for 28 days. We will follow with you. Nakul Jerome MD
[2018-06-17] MEDS: MOMETASONE 0.1% TOP SCH ×3 (10:00→17:55)
[2018-06-17] MEDS: Lactobacillus Acidophilus 500 MU Cap PO SCH ×2 (10:00→17:44)
[2018-06-17] MEDS ORDERED: cefTRIAXone 1 gm 1 GM/100 ML BAG IVPB SCH (10:00)
[2018-06-17] MEDS: CADEXOMER IODINE 0.9% GEL 10G TOP SCH (10:52)
[2018-06-17] MEDS: cefTRIAXone 2 GM IN NS 2 GM/100 ML BAG IVPB SCH (11:54)
--- NOTE | 2018-06-17 11:56 | CP.PCM.PN ---
Addendum entered and electronically signed by Harris Hadley DO 06/17/18 11:57: Cardiac consultation as per Dr. Ha Original Note: Subjective - Date & Time of Evaluation Date of Evaluation: 06/17/18 Time of Evaluation: 11:53 - Subjective Subjective: Patient seen and evaluated bedside. Patient was sitting up in bed no acute distress. Patient complains of pressure like chest pain which began an hour ago, which is worse with palpation. Patient denies any palpitations, dizziness, headaches, nausea, diaphoresis or any other complaints. Objective - Vital Signs/Intake and Output Vital Signs (last 24 hours): Temp Pulse Resp BP Pulse Ox 97.7 F 68 20 152/63 H 97 06/17/18 06:00 06/17/18 06:00 06/17/18 06:00 06/17/18 06:00 06/17/18 06:00 Intake and Output: 06/17/18 06/17/18 06:59 18:59 Intake Total 1080 Balance 1080 - Medications Medications: Current Medications Atorvastatin Calcium (Lipitor) 10 mg PO DAILY [facility] Last Admin: 06/16/18 09:32 Dose: 10 mg Cadexomer Iodine (Iodosorb) 0 gm TOP DAILY [facility] Last Admin: 06/16/18 09:32 Dose: 10 gm Clotrimazole (Lotrimin 1%) 1 gm TOP BID [facility] Last Admin: 06/16/18 17:18 Dose: Not Given Diphenhydramine HCl (Benadryl) 25 mg PO HS PRN PRN Reason: Insomnia Last Admin: 06/16/18 21:05 Dose: 25 mg Home Med (Home Med) 0.5 unit PO DAILY [facility] Last Admin: 06/16/18 09:32 Dose: 0.5 unit Ceftriaxone Sodium (Rocephin 2 Gm Ivpb) 2 gm in 100 mls @ 100 mls/hr IVPB DAILY [facility]; Protocol Stop: 07/15/18 10:01 Lactobacillus Acidophilus (Bacid Acidophilus) 1 cap PO BID [facility] Last Admin: 06/16/18 17:17 Dose: 1 cap Linezolid (Zyvox) 600 mg PO BID [facility]; Protocol Stop: 07/15/18 10:01 Mometasone Furoate (Elocon Ointment) 1 gm TOP TID [facility] Last Admin: 10/15/18 17:18 Dose: 1 % - Labs Labs: 06/12/18 06:30 06/12/18 06:30 - Constitutional Appears: Non-toxic, No Acute Distress - Head Exam Head Exam: ATRAUMATIC, NORMAL INSPECTION, NORMOCEPHALIC - Eye Exam Eye Exam: EOMI, Normal appearance, PERRL - ENT Exam ENT Exam: Mucous Membranes Moist - Respiratory Exam Respiratory Exam: Clear to Ausculation Bilateral, NORMAL BREATHING PATTERN - Cardiovascular Exam Cardiovascular Exam: REGULAR RHYTHM, +S1, +S2 Additional comments: Pain on palpation of chest wall - GI/Abdominal Exam GI & Abdominal Exam: Soft, Normal Bowel Sounds. absent: Tenderness - Extremities Exam Extremities Exam: absent: Pedal Edema - Neurological Exam Neurological Exam: Alert, Awake, Oriented x3 Assessment and Plan - Assessment and Plan (Free Text) Assessment: 78 year old female complaining of reproducible chest pain. Plan: Chest Pain-likely MSK -reproducible on palpation -EKG -Chest xray -tropnonins -NSAIDs -continue to monitor
[2018-06-17] MEDS: OLMESARTAN MEDOXOMIL 20 MG PO SCH (11:57)
[2018-06-17] MEDS: Clotrimazole 1% Cream(30 gm) TOP SCH ×2 (12:02→17:55)
--- NOTE | 2018-06-17 13:47 | CP.PCM.PN ---
<Annel Grant - Last Filed: 06/17/18 13:48> Subjective - Date & Time of Evaluation Date of Evaluation: 06/17/18 Time of Evaluation: 13:47 - Subjective Subjective: Podiatry Progress Note for Dr. Tavarez: 78 yo female patient, seen and evaluated at bedside for R interdigital ulceration, with suspected OM. Patient is AAOx3, in NAD, and denies any acute events overnight. She denies any new pedal complaints today. Patient denies N/V/F. Objective - Vital Signs/Intake and Output Vital Signs (last 24 hours): Temp Pulse Resp BP Pulse Ox 97.7 F 68 20 152/63 H 97 06/17/18 06:00 06/17/18 06:00 06/17/18 06:00 06/17/18 06:00 06/17/18 06:00 Intake and Output: 06/17/18 06/17/18 06:59 18:59 Intake Total 1080 Balance 1080 - Medications Medications: Current Medications Aspirin (Ecotrin) 81 mg PO DAILY REPLACED BY [facility] Atorvastatin Calcium (Lipitor) 10 mg PO DAILY REPLACED BY [facility] Last Admin: 06/17/18 11:53 Dose: 10 mg Cadexomer Iodine (Iodosorb) 0 gm TOP DAILY [facility] Last Admin: 06/17/18 10:52 Dose: 10 gm Clotrimazole (Lotrimin 1%) 1 gm TOP BID [facility] Last Admin: 06/17/18 12:02 Dose: 1 applic Diphenhydramine HCl (Benadryl) 25 mg PO HS PRN PRN Reason: Insomnia Last Admin: 06/16/18 21:05 Dose: 25 mg Home Med (Home Med) 0.5 unit PO DAILY [facility] Last Admin: 06/17/18 11:57 Dose: 0.5 unit Ceftriaxone Sodium (Rocephin 2 Gm Ivpb) 2 gm in 100 mls @ 100 mls/hr IVPB DAILY REPLACED BY [facility]; Protocol Stop: 07/15/18 10:01 Last Admin: 06/17/18 11:54 Dose: 100 mls/hr Lactobacillus Acidophilus (Bacid Acidophilus) 1 cap PO BID [facility] Last Admin: 06/17/18 10:00 Dose: 1 cap Linezolid (Zyvox) 600 mg PO BID REPLACED BY [facility]; Protocol Stop: 07/15/18 10:01 Last Admin: 06/17/18 10:01 Dose: 600 mg Metoprolol Tartrate (Lopressor) 25 mg PO BID REPLACED BY [facility] Mometasone Furoate (Elocon Ointment) 1 gm TOP TID REPLACED BY [facility] Last Admin: 06/17/18 10:00 Dose: 1 appful - Labs Labs: 06/12/18 06:30 06/12/18 06:30 - Constitutional Appears: Well, Non-toxic, No Acute Distress - Head Exam Head Exam: ATRAUMATIC, NORMOCEPHALIC - Extremities Exam Additional comments: RLE focused exam: Vascular: DP/PT palpable, CFT <3 seconds to all digits, TG warm to warm, resolving edema to the dorsal aspect of the 4th and 5th digits. Ortho: Tenderness to palpation of 4th and 5th digit as well as 4th interspace Neuro: Gross and protective sensation intact Derm: Interdigital maceration in 4th webspace with helloma mole present. No purulence, no drainage, no probe to bone, no tunneling, no tracking noted. No cellulitis, no erythema - Neurological Exam Neurological Exam: Alert, Awake, Oriented x3 - Psychiatric Exam Psychiatric exam: Normal Affect, Normal Mood Assessment and Plan - Assessment and Plan (Free Text) Assessment: 78 yo female patient, seen and evaluated at bedside for R interdigital ulceration, with suspected OM per MRI. Plan: Patient seen and evaluated at bedside Discussed patient in detail with Dr. Tavarez Afebrile, absent leukocytosis Local wound care: Iodosorb to R 4th interspace with DSD RLE US (06/09): No evidence for DVT in RLE R foot x-ray (06/11); No radiographic evidence of OM RLE MRI ordered (06/11); subcutaneous edema and swelling of the 5th toe with mild marrow edema in the 5th phalanges suspicious for OM ID reccs appreciated; Per Dr. Jerome; Recommend weekly CBC, SMA-18, sed rate, C-reactive protein, and may be able to use PO Zyvox and IV ceftriaxone upon d/c Discussed with patient how to do dressing changes with Saline, Betadine and DSD to R foot at home. Patient to follow up in wound care center pending d/c for c ontinued care. Patient is to keep dressing dry, sponge bath only. <Charly Tavarez - Last Filed: 06/18/18 10:59> Objective - Vital Signs/Intake and Output Vital Signs (last 24 hours): Temp Pulse Resp BP Pulse Ox 98.7 F 68 20 137/80 96 06/18/18 06:00 06/18/18 06:00 06/18/18 06:00 06/18/18 06:00 06/18/18 06:00 - Medications Medications: Current Medications Aspirin (Ecotrin) 81 mg PO DAILY REPLACED BY [facility] Last Admin: 06/17/18 17:42 Dose: 81 mg Atorvastatin Calcium (Lipitor) 10 mg PO DAILY REPLACED BY [facility] Last Admin: 06/17/18 11:53 Dose: 10 mg Cadexomer Iodine (Iodosorb) 0 gm TOP DAILY REPLACED BY [facility] Last Admin: 06/17/18 10:52 Dose: 10 gm Clotrimazole (Lotrimin 1%) 1 gm TOP BID REPLACED BY [facility] Last Admin: 06/17/18 17:55 Dose: 1 applic Diphenhydramine HCl (Benadryl) 25 mg PO HS PRN PRN Reason: Insomnia Last Admin: 06/18/18 00:11 Dose: 25 mg Home Med (Home Med) 0.5 unit PO DAILY [facility]PL[facility] Last Admin: 06/17/18 11:57 Dose: 0.5 unit Ceftriaxone Sodium (Rocephin 2 Gm Ivpb) 2 gm in 100 mls @ 100 mls/hr IVPB DAILY REPLACED [facility]; Protocol Stop: 07/15/18 10:01 Last Admin: 06/17/18 11:54 Dose: 100 mls/hr Lactobacillus Acidophilus (Bacid Acidophilus) 1 cap PO BID REPLACED BY [facility] Last Admin: 06/17/18 17:44 Dose: 1 cap Linezolid (Zyvox) 600 mg PO BID REPLACED BY [facility]; Protocol Stop: 07/15/18 10:01 Last Admin: 06/17/18 17:44 Dose: 600 mg Metoprolol Tartrate (Lopressor) 25 mg PO BID REPLACED BY [facility] Last Admin: 06/17/18 17:42 Dose: 25 mg Mometasone Furoate (Elocon Ointment) 1 gm TOP TID REPLACED BY [facility] Last Admin: 06/17/18 17:55 Dose: 1 appful - Labs Labs: 06/18/18 07:00 06/18/18 07:00 Attending/Attestation - Attestation I have personally seen and examined this patient.: Yes I have fully participated in the care of the patient.: Yes I have reviewed all pertinent clinical information, including history, physical exam and plan: Yes
--- NOTE | 2018-06-17 15:45 | CARD ---
APPROVED REPORT Date of service: 06/17/2018 EKG Measurement Heart [id number] <Conclusion> Normal sinus rhythm Normal ECG
--- NOTE | 2018-06-17 15:57 | PN ---
DATE: 06/16/2018 SUBJECTIVE: The patient was seen and examined on the bedside on 06/16/2018, looking comfortable. Complaining about foot pain. No fever. No chills. No nausea, vomiting, diarrhea. Do not look like in any distress. No chills. PHYSICAL EXAMINATION: VITAL SIGNS: Temperature 97, blood pressure 128/80, respiratory rate 18, pulse 80. HEENT: Head normocephalic, atraumatic. Eyes PERRLA. Extraocular muscles intact. Conjunctivae clear. Nose patent. Mucous membrane moist. NECK: Supple. No carotid bruit. No JVD or thyromegaly. CHEST: Bilaterally symmetrical. HEART: S1 and S2 positive. LUNGS: Clear to auscultation. ABDOMEN: Soft. Bowel sounds positive. No organomegaly. EXTREMITIES: No edema. No cyanosis. Foot has dressing. MEDICATIONS: Lactobacillus acidophilus, Benadryl, Elocon, cadexomer iodine, Lipitor, Rocephin, Zyvox. LABORATORY DATA: We do not have labs today, but I reviewed old labs. ASSESSMENT AND PLAN: Ms. Yolanda Kapadia, 78-year-old lady with history of hypercholesterolemia, has cellulitis of the foot, leukocytosis improving, hypertension, actually has right foot intertrigo and cellulitis with Proteus sensitive coagulase Staphylococcus, osteomyelitis , on Zyvox and ceftriaxone. Dr. Jerome ordered a couple of testing. According to him, the patient needs at least 28 days of antibiotics, Zyvox 600 p.o. every b.i.d. for 28 days and ceftriaxone 2 g every 24 hours also for 28 days. Should be followed us with labs weekly like CBC, SMA-18, sed rate, C-reactive protein. I appreciated Dr. Jerome's input. We will follow up. Nuha Ha MD MTDD
--- NOTE | 2018-06-17 21:24 | CARD ---
APPROVED REPORT Date of service: 06/17/2018 EXAM: Two-dimensional and M-mode echocardiogram with Doppler and color Doppler. INDICATION Chest Pain LVFX 2D DIMENSIONS Left Atrium (2D)3.8 (1.6-4.0cm)IVSd1.3 (0.7-1.1cm) LVDd4.3 (3.9-5.9cm)PWd1.4 (0.7-1.1cm) LVDs2.9 (2.5-4.0cm)FS (%) 32.0 % LVEF (%)60.5 (>50%) M-Mode DIMENSIONS Aortic Root3.30 (2.2-3.7cm)Aortic Cusp Exc.1.40 (1.5-2.0cm) Aortic Valve AoV Peak Wqwbmhuz242.0cm/sAoV VTI35.6cmAO Peak GR.12mmHg LVOT Peak Cqhfcmsp991.0cm/sLVOT VTI30.30cmAO Mean GR.7mmHg AI P 1/2 [id number] Mitral Valve MV E Kjzzkfzy75.5cm/sMV A Vxzonajz30.3cm/sE/A ratio0.7 TDI Lateral E' Peak V5.56cm/sMedial E' Peak V5.36cm/sE/Lateral E'12.3 E/Medial E'12.8 Pulmonary Valve PV Peak Hmqchrvl15.6cm/sPV Peak Grad.3mmHg Tricuspid Valve TR Peak Izcrlqut870mf/sRAP [id number] Peak Gr.24mmHg [id number] LEFT VENTRICLE The left ventricle is normal size. There is mild concentric left ventricular hypertrophy. The left ventricular function is normal.EF-60-65% There is normal LV segmental wall motion. Transmitral Doppler flow pattern is Grade III-reversible restrictive diastolic dysfunction. No left ventricle thrombus noted on this study. There is no ventricular septal defect visualized. There is no left ventricular aneurysm. There is no mass noted in the left ventricle. RIGHT VENTRICLE The right ventricle is normal size. There is normal right ventricular wall thickness. The right ventricular systolic function is normal. ATRIA The left atrium size is normal. The right atrium size is normal. The interatrial septum is intact with no evidence for an atrial septal defect. AORTIC VALVE The aortic valve is calcified and displays decreased opening. There is mild aortic regurgitation. There is mild valvular aortic stenosis. There is no aortic valvular vegetation. MITRAL VALVE The mitral valve is thickened but opens well. Mitral annular calcification is moderate to severe. Mitral regurgitation is trace. There is no mitral valve stenosis. There is no evidence of mitral valve prolapse. TRICUSPID VALVE The tricuspid valve leaflets are thickened , but open well. There is trace tricuspid regurgitation.RVSP-34 mmof Hg There is no tricuspid valve stenosis. There is no tricuspid valve prolapse or vegetation. PULMONIC VALVE The pulmonary valve is normal in structure. There is no pulmonic valvular regurgitation. There is no pulmonic valvular stenosis. GREAT VESSELS The aortic root is normal in size. The ascending aorta is normal in size. The pulmonary artery is normal. The IVC is normal in size and collapses >50% with inspiration. PERICARDIAL EFFUSION There is no pleural effusion. There is no pericardial effusion. <Conclusion> Normal Chamber Size. EF-60-65% There is mild aortic regurgitation. There is mild valvular aortic stenosis. Mitral regurgitation is trace. There is trace tricuspid regurgitation.RVSP-34 mmof Hg There is no pericardial effusion. The IVC is normal in size and collapses >50% with inspiration.
--- NOTE | 2018-06-18 03:40 | CON ---
DATE: 06/17/2018 CONSULT SERVICE: Cardiology. REASON FOR CONSULTATION: Chest pain. BRIEF CLINICAL HISTORY: This is a 78-year-old female with past medical history significant for hypertension, hyperlipidemia, osteoporosis, came initially, admitted on 06/11/2018 with right foot pain and found to be osteomyelitis. This morning the patient complained of chest and cardiac consult was called. Severe tenderness on chest, patient herself feels that this pain is secondary to muscles because it increases with movement and tenderness on touching. The patient also denies any prior episode of chest pain or dyspnea on exertion. PAST MEDICAL HISTORY: Significant for hypertension, asthma, right foot surgery in the past. SOCIAL HISTORY: Denies smoking. Denies any history of alcohol abuse. FAMILY HISTORY: Significant for coronary artery disease. Brother at age of 40, father had a early premature coronary artery disease. CURRENT MEDICATIONS: Before she came in, the patient at home was taking atorvastatin 10 mg, , amoxicillin, meclizine, and Benicar. REVIEW OF SYSTEMS: As per HPI. PHYSICAL EXAMINATION As follows: VITAL SIGNS: Temperature afebrile, heart rate 60, blood pressure 152/60. HEENT: PERRLA intact. NECK: Supple. No carotid bruit or thyromegaly. CHEST: Clear to auscultation. Tenderness noted on the left side of the chest. ABDOMEN: Soft. EXTREMITIES: Clubbing, cyanosis negative. LABORATORY DATA: EKG shows normal sinus, no acute ST-T changes noted. Blood workup as follows: WBC 6.9, hemoglobin 13.7, hematocrit 40.8, platelet count 169. Chemistry shows sodium 141, potassium 4.5, chloride 109, carbon dioxide 26, anion gap of 10, BUN 16, creatinine 0.8. TSH 2.37. Total cholesterol 128, LDL 65, HDL 45, triglycerides 88. IMPRESSION: A 78-year-old female with past medical history significant for hypertension, admitted with osteomyelitis of the right foot, developed chest pain, it was very tender. The patient does feel that the chest pain is musculoskeletal, but given the multiple history of coronary artery disease including premature coronary artery disease in the family, brother at the age of 40, father and had premature coronary artery disease. I suggest echo and a stress test. We will get lipid profile, TSH, hemoglobin A1c also. Further recommendation made according to hospital course. We will follow with you. Thank you, Dr. Ha, for providing us the opportunity in taking care of the patient, King Yolanda. Asa Mixon MD
[2018-06-18 07:25] LABS: HEMOGLOBIN 14.1 g/dL (12.0-16.0); MEAN CELL VOLUME 93.2 fl (80.0-105.0); MEAN CORPUSCULAR HEMOGLOBIN 31.1 pg (25.0-35.0); MEAN CORPUSCULAR HGB CONC 33.3 g/dl (31.0-37.0); MEAN PLATELET VOLUME 10.5 fl (7.0-11.0); RBC 4.54 10^6/uL (3.5-6.1); RED CELL DISTRIBUTION WIDTH 13.5 % (11.5-14.5); WHITE BLOOD COUNT 7.9 10^3/ul (4.5-11.0)
[2018-06-18 07:45] LABS: BLOOD UREA NITROGEN 19 mg/dL (7-21); CALCIUM 8.8 mg/dL (8.4-10.5); GFR NON-AFRICAN AMERICAN > 60
--- NOTE | 2018-06-18 08:23 | PN ---
DATE: 06/17/2018 SUBJECTIVE: The patient is in bed, in no acute distress, was seen earlier today in 564. PHYSICAL EXAMINATION: VITAL SIGNS: Temperature is 98, blood pressure is 120/80, respiratory rate of 18. HEENT: Examination of HEENT is unremarkable. NECK: Supple. LUNGS: Have decreased breath sounds. HEART: Normal S1 and S2. ABDOMEN: Soft. LABORATORY EXAMINATION: Reveals a white count of 6.9 and hemoglobin of 13. Chemistries are noted. Toxicology reveals vancomycin is noted. ASSESSMENT AND PLAN: A 78-year-old female with right foot intertrigo and cellulitis with Proteus and sensitive coag-negative staph, probable osteomyelitis of the fifth toe, on Zyvox and cefepime. Currently on p.o. Zyvox and IV ceftriaxone 2 g daily for a total of at least 28 days with a weekly CBC, SMA-18, sed rate, C-reactive protein. Case discussed with the patient at length. She is to follow up with Podiatry and myself as an outpatient. Nakul Jerome MD
--- NOTE | 2018-06-18 08:34 | PN ---
DATE: 06/17/2018 SUBJECTIVE: Patient was seen and examined at the bedside on 06/17/2018. Still complaining about chest pain with palpation. Today patient got PICC line in the left upper extremity and there was code heart for her because of chest pain. Patient was evaluated by code heart team. Chest x-ray, EKG and troponin level was done, Cardiology consult called, but as per them, it looks like musculoskeletal, but still wait for the auto body builder apprentice's input and they scheduled patient for stress test. No headache. No dizziness. No nausea, vomiting, or diarrhea. No hematuria, no hematochezia. PHYSICAL EXAMINATION: VITAL SIGNS: Temperature 97.7, pulse 58, respiratory rate 20, blood pressure 152/63, pulse oximetry 97. HEENT: Head: Normocephalic, atraumatic. Eyes: PERRLA. Extraocular muscles intact. Conjunctivae clear. Nose patent. Mucous membranes moist. NECK: Supple. No carotid bruit. No JVD or thyromegaly. CHEST: Bilaterally symmetrical. HEART: S1 and S2 positive. LUNGS: Clear to auscultation. ABDOMEN: Soft. Bowel sounds present. No organomegaly. EXTREMITIES: Lower extremities, no edema, no cyanosis. Left upper extremity has PICC line. NEUROLOGICAL: The patient is awake and alert. Follows simple commands. Moving all 4 extremities. MEDICATIONS: Lipitor, Lotrimin, Benadryl, Rocephin, Lactobacillus, Zyvox, Elocon local application. LABORATORY DATA: White blood cells 6.9, hemoglobin 13.7, hematocrit 40.8, platelets 159. Sodium 141, potassium 4.4, BUN 16, creatinine 0.8, glucose 64. ASSESSMENT AND PLAN: Ms. Yolanda Kapadia, 78 year-old female had chest pain attack today, it is reproducible, tender on palpation, looks like musculoskeletal, but still we did EKG, chest x-ray, troponin. NSAID given. Cardiac monitoring. Patient will be seen by the auto body builder apprentice tomorrow. Had PICC line in the left upper extremity for antibiotics. Has foot cellulitis. Rule out osteomyelitis. Podiatry and Infectious Disease is on the case. Continue antibiotics. Hypercholesterolemia, getting Lipitor; history of hypertension; history of hyperchloremia. Discussion done with patient and nursing staff. Has right interdigital ulceration. Dr. Tavarez, Podiatry is on the case. Need local wound care. Dr. Jerome recommended weekly CBC, SMA-18, sedimentation rate, C-reactive protein and may be able to use p.o. Zyvox and IV ceftriaxone. Gastrointestinal and deep vein thrombosis prophylaxes. Repeat labs. We will follow up. Nuha Ha MD MTDD
[2018-06-18 08:40] VITALS: RESP 20
--- NOTE | 2018-06-18 12:10 | PN ---
DATE: 06/18/2018 REASON FOR THE CONSULTATION AND FOLLOWUP: Cardiac evaluation; chest pain, atypical. SUBJECTIVE: The patient denies any chest pain, shortness of breath or any palpitations. OBJECTIVE: GENERAL: Not in apparent distress. VITAL SIGNS: Temperature afebrile, heart rate 60, blood pressure 137/80. HEENT: PERRLA. Extraocular muscles intact. NECK: Supple. No carotid bruit or thyromegaly. CHEST: Clear to auscultation. HEART: S1, S2 regular. ABDOMEN: Soft. EXTREMITIES: Clubbing and cyanosis negative. LABORATORY DATA: Blood workup as follows: WBC 7.9, hemoglobin 14, hematocrit 42.3, platelet count 187. Chemistry shows sodium 141, potassium 4.6, chloride of 109, carbon dioxide 24, anion gap of 12, BUN 19, creatinine 0.9, troponin 0.01, negative. IMPRESSION: A 78-year-old female with past medical history significant for hypertension, admitted with osteomyelitis of the right foot and cellulitis, developed chest pain, was very tender atypical chest pain with tenderness in chest, so far no evidence of acute myocardial infarction, but given the multiple risk factor for coronary artery disease including strong family history, suggest a stress test today. The patient had echocardiography done yesterday that revealed ejection fraction 60% to 65%, trace mitral regurgitation, trace tricuspid regurgitation and no pericardial effusion. RECOMMENDATIONS: Continue antibiotics as per ID, stress test today, we will keep n.p.o. Discussed with the patient. Further recommendations after the stress test. We will follow with you. Thank you, Dr. Ha, for providing us the opportunity in taking care of the patient, Yolanda Kapadia. Asa Mixon MD
[2018-06-18] MEDS: CADEXOMER IODINE 0.9% GEL 10G TOP SCH (12:14)
[2018-06-18] MEDS: Clotrimazole 1% Cream(30 gm) TOP SCH ×2 (12:14→18:17)
[2018-06-18] MEDS: MOMETASONE 0.1% TOP SCH ×3 (12:15→18:16)
[2018-06-18] MEDS: Lactobacillus Acidophilus 500 MU Cap PO SCH ×2 (12:21→18:12)
[2018-06-18] MEDS: cefTRIAXone 2 GM IN NS 2 GM/100 ML BAG IVPB SCH (12:23)
--- NOTE | 2018-06-18 14:33 | CP.PCM.PN ---
<Annel Grant - Last Filed: 06/18/18 14:30> Subjective - Date & Time of Evaluation Date of Evaluation: 06/18/18 Time of Evaluation: 14:30 - Subjective Subjective: Podiatry Progress Note for Dr. Tavarez: 78 yo female patient, seen and evaluated at bedside for R interdigital ulceration, with suspected OM. Patient is resting comfortably and in NAD. She states that she wants to go home. She denies any pain to her R foot today. Patient denies N/V/F/SOB. Objective - Vital Signs/Intake and Output Vital Signs (last 24 hours): Temp Pulse Resp BP Pulse Ox 98.7 F 74 20 134/73 96 06/18/18 06:00 06/18/18 12:27 06/18/18 06:00 06/18/18 12:27 06/18/18 06:00 - Medications Medications: Current Medications Aspirin (Ecotrin) 81 mg PO DAILY [facility] Last Admin: 06/18/18 12:22 Dose: 81 mg Atorvastatin Calcium (Lipitor) 10 mg PO DAILY [facility] Last Admin: 06/18/18 12:21 Dose: 10 mg Cadexomer Iodine (Iodosorb) 0 gm TOP DAILY [facility] Last Admin: 06/17/18 10:52 Dose: 10 gm Clotrimazole (Lotrimin 1%) 1 gm TOP BID [facility] Last Admin: 06/17/18 17:55 Dose: 1 applic Diphenhydramine HCl (Benadryl) 25 mg PO HS PRN PRN Reason: Insomnia Last Admin: 06/18/18 00:11 Dose: 25 mg Home Med (Home Med) 0.5 unit PO DAILY [facility] Last Admin: 06/17/18 11:57 Dose: 0.5 unit Ceftriaxone Sodium (Rocephin 2 Gm Ivpb) 2 gm in 100 mls @ 100 mls/hr IVPB DAILY [facility]; Protocol Stop: 07/15/18 10:01 Last Admin: 06/18/18 12:23 Dose: 100 mls/hr Lactobacillus Acidophilus (Bacid Acidophilus) 1 cap PO BID [facility] Last Admin: 06/18/18 12:21 Dose: 1 cap Linezolid (Zyvox) 600 mg PO BID [facility]; Protocol Stop: 07/15/18 10:01 Last Admin: 10/17/18 12:21 Dose: 600 mg Metoprolol Tartrate (Lopressor) 25 mg PO BID [facility] Last Admin: 06/18/18 12:27 Dose: 25 mg Mometasone Furoate (Elocon Ointment) 1 gm TOP TID [facility] Last Admin: 06/17/18 17:55 Dose: 1 appful - Labs Labs: 06/18/18 07:00 06/18/18 07:00 - Constitutional Appears: Well, Non-toxic, No Acute Distress - Extremities Exam Additional comments: RLE focused exam: Vascular: DP/PT palpable, CFT <3 seconds to all digits, TG warm to warm, resolving edema to the dorsal aspect of the 4th and 5th digits. Ortho: Tenderness to palpation of 4th and 5th digit as well as 4th interspace Neuro: Gross and protective sensation intact Derm: Interdigital maceration in 4th webspace. No purulence, no drainage, no probe to bone, no tunneling, no tracking noted. No cellulitis, no erythema Assessment and Plan - Assessment and Plan (Free Text) Assessment: 78 yo female patient, seen and evaluated at bedside for R interdigital ulceration, with suspected OM per MRI. Plan: Patient seen and evaluated at bedside Discussed patient in detail with Dr. Tavarez Local wound care: Iodosorb to R 4th interspace with DSD; patient ulceration currently stable from podiatry standpoint, patient to follow up in wound care c enter for continued care of R ulceration RLE US (06/09): No evidence for DVT in RLE R foot x-ray (06/11); No radiographic evidence of OM RLE MRI ordered (06/11); subcutaneous edema and swelling of the 5th toe with mild marrow edema in the 5th phalanges suspicious for OM ID reccs per Dr. Jerome; Recommend weekly CBC, SMA-18, sed rate, C-reactive protein, and may be able to use PO Zyvox and IV ceftriaxone upon d/c <Charly Tavarez - Last Filed: 06/19/18 08:23> Objective - Vital Signs/Intake and Output Vital Signs (last 24 hours): Temp Pulse Resp BP Pulse Ox 97.9 F 57 L 20 132/69 97 06/19/18 06:00 06/19/18 06:00 06/19/18 06:00 06/19/18 06:00 06/19/18 06:00 Intake and Output: 06/19/18 06/19/18 06:59 18:59 Intake Total 100 Balance 100 - Medications Medications: Current Medications Aspirin (Ecotrin) 81 mg PO DAILY [facility] Last Admin: 06/18/18 12:22 Dose: 81 mg Atorvastatin Calcium (Lipitor) 10 mg PO DAILY [facility] Last Admin: 06/18/18 12:21 Dose: 10 mg Cadexomer Iodine (Iodosorb) 0 gm TOP DAILY [facility] Last Admin: 06/18/18 12:14 Dose: 10 gm Clotrimazole (Lotrimin 1%) 1 gm TOP BID [facility] Last Admin: 06/18/18 18:17 Dose: 1 applic Clotrimazole (Mycelex Ava) 10 mg MT TID [facility] Diphenhydramine HCl (Benadryl) 25 mg PO HS PRN PRN Reason: Insomnia Last Admin: 06/18/18 23:35 Dose: 25 mg Home Med (Home Med) 0.5 unit PO DAILY [facility] Last Admin: 06/18/18 18:07 Dose: 0.5 unit Ceftriaxone Sodium (Rocephin 2 Gm Ivpb) 2 gm in 100 mls @ 100 mls/hr IVPB DAILY [facility]; Protocol Stop: 07/15/18 10:01 Last Admin: 06/18/18 12:23 Dose: 100 mls/hr Lactobacillus Acidophilus (Bacid Acidophilus) 1 cap PO BID [facility] Last Admin: 06/18/18 18:12 Dose: 1 cap Linezolid (Zyvox) 600 mg PO BID [facility]; Protocol Stop: 07/15/18 10:01 Last Admin: 06/18/18 18:12 Dose: 600 mg Metoprolol Tartrate (Lopressor) 25 mg PO BID [facility] Last Admin: 06/18/18 18:12 Dose: 25 mg Mometasone Furoate (Elocon Ointment) 1 gm TOP TID [facility] Last Admin: 06/18/18 18:16 Dose: 1 appful - Labs Labs: 06/18/18 07:00 06/18/18 07:00 Attending/Attestation - Attestation I have personally seen and examined this patient.: Yes I have fully participated in the care of the patient.: Yes I have reviewed all pertinent clinical information, including history, physical exam and plan: Yes
[2018-06-18] MEDS: OLMESARTAN MEDOXOMIL 20 MG PO SCH (18:07)
--- NOTE | 2018-06-18 19:30 | CARD ---
APPROVED REPORT Date of service: 06/18/2018 Protocol: LEXISCAN Test Type: Lexiscan Sestamibi Stress Test Attending Physician: Dr. Asa Barry Referring Physician: Dr. Nuha Ha Test Indications: Chest Pain Height:5 ft 3 in Weight:150lbs Medications: Aspirin,Atorvastatin,Cadexomer, Cefriaxone, Benadryl, Lopressor, Linezolid, Acidophilus Medical History: 78 y/o female. Hx of asthma, hypertension. Target HR: 142 bpm Resting ECG: RSR Resting Heart Rate: 59 bpm Resting Blood Pressure: 130/80mmHg Submaximum (85%): 121 bpm PROCEDURE Pharmacologic stress testing was performed using 0.4mg per 5ml of regadenoson given intravenously over 7-10 seconds. POST EXERCISE Reason for Termination: Protocol completed Target HR: No Max HR: 59 bpm 57% of Maximum Predicted HR: 142 bpm Exercise duration: 00:30 min:sec, 0 Stage Exercise capacity: 1.0METs Max Blood Pressure: 130/80mmHg Blood Pressure response to exercise: normal resting BP - appropriate response Heart Rate response to exercise: appropriate Chest Pain: No, none Angina index: 0 Arrhythmia: No, none ST Change: No, none Deviation: 0 mm INTERPRETATION Stress EKG Conclusion: IV LEXISCAN NUCLEAR STRESS TEST NEGATIVE FOR CHEST PAIN AND NEGATIVE FOR ST-T CHANGES, NUCLEAR SCAN REPORT PENDING. Signed by Asa Barry Electronically Approved: 06/18/2018 11:48:57 EXAM: Myocardial Perfusion REST/STRESS Stress Test Type: Pharmacologic Imaging Protocol Rest Spect myocardial perfusion imaging was performed in supine position 45 minutes following the injection of 10.6 mCi of Tc-99 Myoview. At peak stress, the patient was injected intravenously with 30.6mCi of Tc-99 tetrofosmin after an infusion time of 0 minutes and 10 seconds. Gated Stress Spect was performed 65 minutes after intravenous Tc-99 Myoview injection. The images were gated to evaluate regional wall motion and calculate ventricular ejection fraction.Images were reconstructed using backfilter projection method in short horizontal and verticle long axis. Spect slices were generated. LV Perfusion The quality of the study is good. The left ventricle is normal in size. The right ventricle is unremarkable. The lung uptake is within normal limits. The distribution of tracer reveals normal uptake pattern throughout the LV myocardium on the stress study. The rest myocardial perfusion study shows no significant change. Wall Motion Wall motion study shows good contractility of the left ventricle. LVEF = 67%. Conclusion 1. Normal SPECT myocardial perfusion study. 2. Normal gated wall motion of the left ventricle.
--- NOTE | 2018-06-18 23:51 | PN ---
DATE: 06/18/2018 SUBJECTIVE: The patient is in bed, in no acute distress, nontoxic. PHYSICAL EXAMINATION: VITAL SIGNS: Temperature is 97, blood pressure is 118/60, respiratory rate of 20. HEENT: Examination of HEENT is unremarkable. NECK: Supple. LUNGS: Have decreased breath sounds. HEART: Normal S1 and S2. ABDOMEN: Soft. LABORATORY DATA: Laboratory examination reveals a white count of 7.9. Chemistries are noted. Microbiology is noted. ASSESSMENT AND PLAN: This is a 78-year-old female who was seen early this morning with a right foot intertrigo and cellulitis and Proteus-sensitive coagulase-negative Staphylococcus with osteomyelitis of the fifth toe, on Zyvox p.o. and ceftriaxone and would complete with at least 28 days with a CBC, SMA-18, sedimentation rate, C-reactive protein once weekly. Review of orders reveals that the ceftriaxone and Zyvox are both active. The Zyvox is p.o. and ceftriaxone is 2 g once daily. Both started yesterday. Nakul Jerome MD
--- NOTE | 2018-06-19 03:41 | PN ---
DATE: 06/18/2018 The patient is a 78-year-old female. SUBJECTIVE: The patient was seen and examined at the bedside, came back today after stress test. History of chest pain, but no more. History of itching on the head, rule out eczema and history of hypertension, has white coating on the tongue and according to her is hard to swallow. No fever. No chills. PHYSICAL EXAMINATION: VITAL SIGNS: Temperature 98.4, pulse 74, respiratory rate 20, blood pressure 135/76, pulse oximetry 96. HEENT: Head is normocephalic and atraumatic. Eyes; PERRLA. Extraocular muscles are intact. Conjunctivae are clear. Nose is patent. Mucous membranes are moist. NECK: Supple. No carotid bruit. No JVD or thyromegaly. CHEST: Bilaterally symmetrical. HEART: S1 and S2 positive. LUNGS: Clear to auscultation. ABDOMEN: Soft. Bowel sounds are present. No organomegaly. EXTREMITIES: No edema. No cyanosis. NEUROLOGIC: The patient is awake and alert. Obeys simple orders. Moving all 4 extremities. MEDICATIONS: Ecotrin, isosorbide, Lomotil, Lotrimin, Benadryl, Rocephin, Lopressor. LABORATORY DATA: White blood cell 7.9, hemoglobin 14.1, hematocrit 42.6, platelets 189. Sodium 141, potassium 4.9, BUN 19, creatinine 0.9, glucose 87. ASSESSMENT AND PLAN: Ms. Yolanda Kapadia is a 78-year-old lady with hyperchloremia, has right interdigital ulceration with suspected osteomyelitis as per MRI. Continue antibiotics. History of seborrheic dermatitis on the head and oral candidiasis. I gave order of nystatin trouches . History of chest pain, went for stress test. Stress test looks like within normal limits. History of eczema on the head. Applying cream. Gastrointestinal and deep vein thrombosis prophylaxis. Repeat labs. We will follow up. Nuha Ha MD [facility]
--- NOTE | 2018-06-19 09:24 | CP.PCM.PN ---
<Lindsay Hadley - Last Filed: 06/19/18 09:20> Subjective - Date & Time of Evaluation Date of Evaluation: 06/19/18 Time of Evaluation: 09:20 - Subjective Subjective: Podiatry Progress Note for Dr. Tavarez: 78 yo female patient, seen and evaluated at bedside for R 4th interdigital ulceration, with suspected OM. Patient is resting comfortably and in NAD. She states that she wants to go home. She states she is still at the hospital because she was experiencing chest pain. She denies any pain to her R foot today. Patient denies N/V/F/SOB. Objective - Vital Signs/Intake and Output Vital Signs (last 24 hours): Temp Pulse Resp BP Pulse Ox 97.9 F 57 L 20 132/69 97 06/19/18 06:00 06/19/18 06:00 06/19/18 06:00 06/19/18 06:00 06/19/18 06:00 Intake and Output: 06/19/18 06/19/18 06:59 18:59 Intake Total 100 Balance 100 - Medications Medications: Current Medications Aspirin (Ecotrin) 81 mg PO DAILY [facility] Last Admin: 06/18/18 12:22 Dose: 81 mg Atorvastatin Calcium (Lipitor) 10 mg PO DAILY [facility] Last Admin: 06/18/18 12:21 Dose: 10 mg Cadexomer Iodine (Iodosorb) 0 gm TOP DAILY [facility] Last Admin: 06/18/18 12:14 Dose: 10 gm Clotrimazole (Lotrimin 1%) 1 gm TOP BID [facility] Last Admin: 06/18/18 18:17 Dose: 1 applic Clotrimazole (Mycelex Ava) 10 mg MT TID [facility] Diphenhydramine HCl (Benadryl) 25 mg PO HS PRN PRN Reason: Insomnia Last Admin: 06/18/18 23:35 Dose: 25 mg Home Med (Home Med) 0.5 unit PO DAILY [facility] Last Admin: 06/18/18 18:07 Dose: 0.5 unit Ceftriaxone Sodium (Rocephin 2 Gm Ivpb) 2 gm in 100 mls @ 100 mls/hr IVPB DAILY [facility]; Protocol Stop: 07/15/18 10:01 Last Admin: 06/18/18 12:23 Dose: 100 mls/hr Lactobacillus Acidophilus (Bacid Acidophilus) 1 cap PO BID [facility] Last Admin: 06/18/18 18:12 Dose: 1 cap Linezolid (Zyvox) 600 mg PO BID [facility]; Protocol Stop: 07/15/18 10:01 Last Admin: 06/18/18 18:12 Dose: 600 mg Metoprolol Tartrate (Lopressor) 25 mg PO BID [facility] Last Admin: 06/18/18 18:12 Dose: 25 mg Mometasone Furoate (Elocon Ointment) 1 gm TOP TID [facility] Last Admin: 06/18/18 18:16 Dose: 1 appful - Labs Labs: 06/18/18 07:00 06/18/18 07:00 - Constitutional Appears: Well, Non-toxic, No Acute Distress - Head Exam Head Exam: ATRAUMATIC, NORMOCEPHALIC - Extremities Exam Additional comments: RLE focused exam: Vascular: DP/PT palpable, CFT <3 seconds to all digits, TG warm to warm, resolving edema to the dorsal aspect of the 4th and 5th digits. Ortho: Tenderness to palpation of 4th and 5th digit as well as 4th interspace Neuro: Gross and protective sensation intact Derm: Interdigital maceration in 4th webspace. No purulence, no drainage, no probe to bone, no tunneling, no tracking noted. No cellulitis, no erythemA - Neurological Exam Neurological Exam: Alert, Normal Gait - Psychiatric Exam Psychiatric exam: Normal Affect - Skin Skin Exam: Normal Color Assessment and Plan - Assessment and Plan (Free Text) Assessment: 78 yo female patient, seen and evaluated at bedside for R interdigital ulceration, with suspected OM per MRI. Plan: Patient seen and evaluated at bedside Discussed patient in detail with Dr. Tavarez Local wound care: Iodosorb to R 4th interspace with DSD; patient ulceration currently stable from podiatry standpoint, patient to follow up in wound care center for continued care of R ulceration RLE US (06/09): No evidence for DVT in RLE R foot x-ray (06/11); No radiographic evidence of OM RLE MRI ordered (06/11); subcutaneous edema and swelling of the 5th toe with mild marrow edema in the 5th phalanges suspicious for OM ID reccs per Dr. Jerome; Recommend weekly CBC, SMA-18, sed rate, C-reactive protein, and may be able to use PO Zyvox and IV ceftriaxone upon d/c Surgical shoe ordered for the patient; to be d/c with it. Podiatry will continue to follow while in house <Charly Tavarez - Last Filed: 06/19/18 09:50> Objective - Vital Signs/Intake and Output Vital Signs (last 24 hours): Temp Pulse Resp BP Pulse Ox 97.9 F 57 L 20 132/69 97 06/19/18 06:00 06/19/18 06:00 06/19/18 06:00 06/19/18 06:00 06/19/18 06:00 Intake and Output: 06/19/18 06/19/18 06:59 18:59 Intake Total 100 Balance 100 - Medications Medications: Current Medications Aspirin (Ecotrin) 81 mg PO DAILY [facility] Last Admin: 06/18/18 12:22 Dose: 81 mg Atorvastatin Calcium (Lipitor) 10 mg PO DAILY [facility] Last Admin: 06/18/18 12:21 Dose: 10 mg Cadexomer Iodine (Iodosorb) 0 gm TOP DAILY [facility] Last Admin: 06/18/18 12:14 Dose: 10 gm Clotrimazole (Lotrimin 1%) 1 gm TOP BID [facility] Last Admin: 06/18/18 18:17 Dose: 1 applic Clotrimazole (Mycelex Ava) 10 mg MT TID [facility] Diphenhydramine HCl (Benadryl) 25 mg PO HS PRN PRN Reason: Insomnia Last Admin: 06/18/18 23:35 Dose: 25 mg Home Med (Home Med) 0.5 unit PO DAILY [facility] Last Admin: 06/18/18 18:07 Dose: 0.5 unit Ceftriaxone Sodium (Rocephin 2 Gm Ivpb) 2 gm in 100 mls @ 100 mls/hr IVPB DAILY [facility]; Protocol Stop: 07/15/18 10:01 Last Admin: 06/18/18 12:23 Dose: 100 mls/hr Lactobacillus Acidophilus (Bacid Acidophilus) 1 cap PO BID [facility] Last Admin: 06/18/18 18:12 Dose: 1 cap Linezolid (Zyvox) 600 mg PO BID [facility]; Protocol Stop: 07/15/18 10:01 Last Admin: 06/18/18 18:12 Dose: 600 mg Metoprolol Tartrate (Lopressor) 25 mg PO BID [facility] Last Admin: 10/17/18 18:12 Dose: 25 mg Mometasone Furoate (Elocon Ointment) 1 gm TOP TID [facility] Last Admin: 06/18/18 18:16 Dose: 1 appful - Labs Labs: 06/18/18 07:00 06/18/18 07:00 Attending/Attestation - Attestation I have personally seen and examined this patient.: Yes I have fully participated in the care of the patient.: Yes I have reviewed all pertinent clinical information, including history, physical exam and plan: Yes
--- NOTE | 2018-06-19 09:39 | CP.PCM.PN ---
Subjective - Date & Time of Evaluation Date of Evaluation: 06/19/18 Time of Evaluation: 06:45 - Subjective Subjective: Awake, alert, denies chest pain,denies shortness of breath Reason for consultation and follow up:Cardiac evaluation of chest pain, admitted for right foot cellulitis Seen and examined by me and Dr. Barry Objective - Vital Signs/Intake and Output Vital Signs (last 24 hours): Temp Pulse Resp BP Pulse Ox 97.9 F 57 L 20 132/69 97 06/19/18 06:00 06/19/18 06:00 06/19/18 06:00 06/19/18 06:00 06/19/18 06:00 Intake and Output: 06/19/18 06/19/18 06:59 18:59 Intake Total 100 Balance 100 - Medications Medications: Current Medications Aspirin (Ecotrin) 81 mg PO DAILY [facility] Last Admin: 06/18/18 12:22 Dose: 81 mg Atorvastatin Calcium (Lipitor) 10 mg PO DAILY [facility] Last Admin: 06/18/18 12:21 Dose: 10 mg Cadexomer Iodine (Iodosorb) 0 gm TOP DAILY [facility] Last Admin: 06/18/18 12:14 Dose: 10 gm Clotrimazole (Lotrimin 1%) 1 gm TOP BID [facility] Last Admin: 06/18/18 18:17 Dose: 1 applic Clotrimazole (Mycelex Ava) 10 mg MT TID [facility] Diphenhydramine HCl (Benadryl) 25 mg PO HS PRN PRN Reason: Insomnia Last Admin: 06/18/18 23:35 Dose: 25 mg Home Med (Home Med) 0.5 unit PO DAILY [facility] Last Admin: 06/18/18 18:07 Dose: 0.5 unit Ceftriaxone Sodium (Rocephin 2 Gm Ivpb) 2 gm in 100 mls @ 100 mls/hr IVPB DAILY [facility]; Protocol Stop: 07/15/18 10:01 Last Admin: 06/18/18 12:23 Dose: 100 mls/hr Lactobacillus Acidophilus (Bacid Acidophilus) 1 cap PO BID [facility] Last Admin: 06/18/18 18:12 Dose: 1 cap Linezolid (Zyvox) 600 mg PO BID [facility]; Protocol Stop: 07/15/18 10:01 Last Admin: 06/18/18 18:12 Dose: 600 mg Metoprolol Tartrate (Lopressor) 25 mg PO BID [facility] Last Admin: 06/18/18 18:12 Dose: 25 mg Mometasone Furoate (Elocon Ointment) 1 gm TOP TID [facility] Last Admin: 06/18/18 18:16 Dose: 1 appful - Labs Labs: 06/18/18 07:00 06/18/18 07:00 - Constitutional Appears: Non-toxic, No Acute Distress - Head Exam Head Exam: NORMAL INSPECTION, NORMOCEPHALIC - ENT Exam ENT Exam: Mucous Membranes Moist, Normal Exam - Respiratory Exam Respiratory Exam: Decreased Breath Sounds, NORMAL BREATHING PATTERN - Cardiovascular Exam Cardiovascular Exam: +S1, +S2 Additional comments: denies chest pain - GI/Abdominal Exam GI & Abdominal Exam: Soft, Normal Bowel Sounds - Extremities Exam Additional comments: right foot wrapped with kerlex - Neurological Exam Neurological Exam: Alert, Awake, Oriented x3 - Psychiatric Exam Psychiatric exam: Normal Affect, Normal Mood - Skin Skin Exam: Dry, Normal Color, Warm Assessment and Plan - Assessment and Plan (Free Text) Assessment: A 78 year old female who came in to the ER due to right foot cellulitis, history of hypertension, asthma,cholecystectomy, right foot surgery, Complained of chest pain, chest with tenderness, Echo done and showed normal chambers, LVEF 60-65%, Mild AR, trace MR/TR RVSP 34 mmHg. Stress test done yesterday-normal ,no evidence of ischemia. Atypical chest pain, muskuloskeletal in nature, rule out acute coronary syndrome. Plan: Denies chest pain, denies shortness of breath Normal stress test, no evidence of ischemia Heart rate and blood pressure controlled On ASA 81 mg daily,Lipitor 10 mg daily, Lopressor 25 mg BID Continue current medications Continue current treatment Continue IV antibiotics as per ID for right toe osteomyelitis Chart reviewed Will follow up Plan and treatment discussed with Dr. Barry
[2018-06-19] MEDS: Lactobacillus Acidophilus 500 MU Cap PO SCH (10:06)
[2018-06-19] MEDS: MOMETASONE 0.1% TOP SCH (10:12)
[2018-06-19] MEDS: CADEXOMER IODINE 0.9% GEL 10G TOP SCH (10:12)
[2018-06-19] MEDS: cefTRIAXone 2 GM IN NS 2 GM/100 ML BAG IVPB SCH (12:18)
--- NOTE | 2018-06-19 16:52 | PN ---
DATE: 06/19/2018 SUBJECTIVE: The patient is in bed, in no acute distress, nontoxic. PHYSICAL EXAMINATION: VITAL SIGNS: On exam, temperature is 97, blood pressure is 130/60, respiratory rate of 20. HEENT: Examination of HEENT is unremarkable. NECK: Supple. LUNGS: Have decreased breath sounds. HEART: Normal S1 and S2. ABDOMEN: Soft. LABORATORY DATA: Laboratory examination reveals a white count of 7.9. BUN of 19, creatinine of 0.9. ASSESSMENT AND PLAN: A 78-year-old female with right foot intertrigo, cellulitis, sensitive Proteus, coagulase-negative Staphylococcus, osteomyelitis of fifth toe. On Zyvox and ceftriaxone, would complete 4 weeks of therapy with CBC, SMA-18, sed rate, C-reactive protein once weekly. Should monitor the bone marrow closely for toxicity, thrombocytopenia. Nakul Jerome MD
[2018-06-19 17:05] VITALS: BP 131/70; PULSE 61; TEMP 97.7; O2SAT 98
[2018-06-19] MEDS ORDERED: Pantoprazole 40 mg EC Tab PO SCH (18:00)
[2018-06-19] MEDS ORDERED: Naproxen 550 mg Tab PO SCH (18:00)
--- NOTE | 2018-06-20 10:41 | PN ---
DATE: 06/19/2018 LOCATION: The patient is in room 564, bed 2. REASON FOR CONSULTATION AND FOLLOWUP: Chest pain, cellulitis of the foot, hypertension. SUBJECTIVE: The patient was admitted with cellulitis of foot and the patient complained chest pain. Chest pain is localized to a point and some marked local tenderness. The patient's stress test is normal with normal LV ejection fraction. Echocardiogram also showed normal chamber sizes. Ejection fraction 60-65%. Mild aortic regurg. Trace mitral regurg. Trace tricuspid regurg. RVSP 34 mmHg. So clinically, the patient's cardiac status is stable and the patient is now being treated for cellulitis of the leg and the patient's chest pain should be treated symptomatically and the patient already on aspirin 81 mg daily, atorvastatin 10 mg daily, metoprolol 25 b.i.d., Zyvox 600 mg b.i.d. We will add Naprosyn and Protonix to therapy. We will follow with you. Asa Barry MD
== END 2018-06-19 18:19 | disposition home or self-care (01) | DRG 540 ==
LOC: ED 15:54 → ERH 20:10 → 5RNO 22:55 → OBSVTOIN 06-11 01:04
PROVIDERS: ADMIT Internal Medicine; ATTEND Internal Medicine
PROC: 0HBMXZZ Excision of Right Foot Skin, External Approach (ICD-10-PCS; principal; 2018-06-10)
PROC: 3E03328 Introduction of Oxazolidinones into Peripheral Vein, Percutaneous Approach (ICD-10-PCS; 2018-06-14)
PROC: 02HV33Z Insertion of Infusion Device into Superior Vena Cava, Percutaneous Approach (ICD-10-PCS; 2018-06-17)
PROC: 3E04329 Introduction of Other Anti-infective into Central Vein, Percutaneous Approach (ICD-10-PCS; 2018-06-17)
PROC: B54NZZA Ultrasonography of Left Upper Extremity Veins, Guidance (ICD-10-PCS; 2018-06-17)
DX: M86.8X7 Other osteomyelitis, ankle and foot (principal); L03.115 Cellulitis of right lower limb; L97.519 Non-pressure chronic ulcer of other part of right foot with unspecified severity; L30.4 Erythema intertrigo; I10 Essential (primary) hypertension; D64.9 Anemia, unspecified; E78.00 Pure hypercholesterolemia, unspecified; M81.0 Age-related osteoporosis without current pathological fracture; E78.5 Hyperlipidemia, unspecified; E87.8 Other disorders of electrolyte and fluid balance, not elsewhere classified; J45.909 Unspecified asthma, uncomplicated; L84 Corns and callosities; B96.4 Proteus (mirabilis) (morganii) as the cause of diseases classified elsewhere; R07.89 Other chest pain

== ENCOUNTER 2018-11-03 22:30 | Inpatient (IN) | payer MEDICARE ==
[2018-11-03 22:51] VITALS: BMI 25.0
[2018-11-03] MEDS ORDERED: Albuterol-Ipratrop 3 mg / 0.5 (3 ml) UD IH STA (22:54)
[2018-11-03] MEDS ORDERED: Sodium Chloride 0.9% 1,000 ML IV STA (22:58)
--- NOTE | 2018-11-03 23:10 | ED PDOC ---
Arrival/HPI - General Chief Complaint: Chest Pain Time Seen by Provider: 11/03/18 22:32 Historian: Patient - History of Present Illness Narrative History of Present Illness (Text): 11/03/18 23:18 78 year old female, whose past medical history includes hypertension, hypercholesterolemia, and asthma, presents to the emergency department with chest pain. Patient states she ate dinner with her daughter, then symptoms began a short while after. Patient states she started to vomit and have chest pain. Patient states it felt worse than her usual asthma symptoms. Patient states she used her inhaler with some relief. Patient's daughter informs giving her 2 baby aspirin at the time. Patient denies any fevers, chills, headache, dizziness, abdominal pain, diarrhea, back pain, neck pain, or any other complaint. PMD: Dr. Ha Time/Duration: Prior to Arrival Symptom Onset: Gradual Symptom Course: Unchanged Quality: Pressure Activities at Onset: Eating Context: Home Past Medical History - Provider Review Nursing Documentation Reviewed: Yes - Infectious Disease Hx of Infectious Diseases: None - Tetanus Immunization Tetanus Immunization: Unknown - Cardiac Hx Hypertension: Yes - Pulmonary Hx Asthma: Yes - Neurological Hx Neurological Disorder: No - HEENT Hx HEENT Disorder: No - Renal Hx Renal Disorder: No - Endocrine/Metabolic Hx Endocrine Disorders: No - Hematological/Oncological Hx Blood Disorders: No - Integumentary Hx Dermatological Disorder: No - Musculoskeletal/Rheumatological Hx Musculoskeletal Disorders: No - Gastrointestinal Hx Gastrointestinal Disorders: No - Genitourinary/Gynecological Hx Genitourinary Disorders: No - Psychiatric Hx Psychophysiologic Disorder: No Hx Substance Use: No - Surgical History Hx Cholecystectomy: Yes Hx Orthopedic Surgery: Yes (Right foot) - Anesthesia Hx Anesthesia: Yes Hx Anesthesia Reactions: No Hx Malignant Hyperthermia: No Family/Social History - Physician Review Nursing Documentation Reviewed: Yes Family/Social History: No Known Family HX Smoking Status: Never Smoked Hx Alcohol Use: No Hx Substance Use: No Allergies/Home Meds Allergies/Adverse Reactions: Allergies No Known Allergies Allergy (Verified 11/03/18 22:41) Home Medications: Home Meds Medication Instructions Recorded Confirmed Budesonide/Formoterol Fumarate 2 aer IH DAILY 05/14/15 06/10/18 [Symbicort 160-4.5 Mcg Inhaler] Olmesartan Medoxomil [Benicar] 20 mg PO DAILY 05/14/15 06/10/18 Atorvastatin [Lipitor] 10 mg PO DAILY 06/10/18 06/10/18 Review of Systems - Physician Review All systems were reviewed & negative as marked: Yes - Review of Systems Constitutional: absent: Fevers, Night Sweats Respiratory: SOB, Wheezing Cardiovascular: Chest Pain Gastrointestinal: Nausea, Vomiting. absent: Abdominal Pain, Diarrhea Musculoskeletal: absent: Back Pain, Neck Pain Neurological: absent: Headache, Dizziness Physical Exam Vital Signs Reviewed: Yes Vital Signs Pulse Resp BP Pulse Ox 11/03/18 22:49 110/61 11/03/18 22:43 85 18 97 Blood Pressure: Normal Pulse: Regular Respiratory Rate: Normal Appearance: Positive for: Well-Appearing, Non-Toxic, Comfortable Pain Distress: None Mental Status: Positive for: Alert and Oriented X 3 - Systems Exam Head: Present: Atraumatic, Normocephalic Pupils: Present: PERRL Extroacular Muscles: Present: EOMI Conjunctiva: Present: Normal Mouth: Present: Moist Mucous Membranes Neck: Present: Normal Range of Motion Respiratory/Chest: Present: Clear to Auscultation, Good Air Exchange. No: Respiratory Distress, Accessory Muscle Use Cardiovascular: Present: Regular Rate and Rhythm, Normal S1, S2. No: Murmurs Abdomen: No: Tenderness, Distention, Peritoneal Signs Back: Present: Normal Inspection Upper Extremity: Present: Normal Inspection. No: Cyanosis, Edema Lower Extremity: Present: Normal Inspection. No: Edema Neurological: Present: GCS=15, CN II-XII Intact, Speech Normal Skin: Present: Warm, Dry, Normal Color. No: Rashes Psychiatric: Present: Alert, Oriented x 3, Normal Insight, Normal Concentration Medical Decision Making ED Course and Treatment: 11/03/18 23:25 Impression: 78 year old female presents with chest pain Diferrential Diagnoses Include But Are Not Limited To: --ACS --COPD exacerbation --PNA Plan: -- Labs --CT angio dissection -- Chest X-ray -- EKG --NitroPaste -- Duoneb -- Toradol -- NTG -- Urinalysis -- Reassess and disposition Prior Visits: Notes and results from previous visits were reviewed. Progress Notes: 11/04/18 00:03 Labs reveals elevated troponin of 0.3. Patient reevaluated stating she still has pain radiating towards her back and chest. Call placed to Dr. Ha(PCP). Repeat EKG ordered. 11/04/18 00:[address] Ha who accepts patient onto her service. She desires for Dr. Sa iglesias(cardiology) to be consulted for the patient. - Lab Interpretations Lab Results: 11/03/18 23:06 11/03/18 23:06 Lab Results 11/03/18 23:06: Sodium 138, Potassium 3.9, Chloride 107, Carbon Dioxide 24, Anion Gap 12, BUN 19, Creatinine 0.8, Est GFR ( Amer) > 60, Est GFR (Non- Af Amer) > 60, Random Glucose 149 H, Calcium 9.2, Magnesium 1.9, Total Bilirubin 1.4 H, AST 24, ALT 14, Alkaline Phosphatase 49, Troponin I 0.30 H* D, NT-Pro-B Natriuret Pep 100, Total Protein 7.1, Albumin 4.1, Globulin 3.0, Albumin/Globulin Ratio 1.4 11/03/18 23:06: APTT 26.7 L, D-Dimer, Quantitative < 200 11/03/18 23:06: WBC 10.5, RBC 4.60, Hgb 14.0, Hct 42.4, MCV 92.2, MCH 30.4, MCHC 33.0, RDW 13.8, Plt Count 173, MPV 10.2, Neut % (Auto) 67.9, Lymph % (Auto) 23.3, Kershaw % (Auto) 6.8 H, Eos % (Auto) 1.7, Baso % (Auto) 0.3, Lymph # (Auto) 2.4, Kershaw # (Auto) 0.7 H, Eos # (Auto) 0.2, Baso # (Auto) 0.03, Absolute Neuts (auto) 7.11 H I have reviewed the lab results: Yes - RAD Interpretation Narrative RAD Interpretations (Text): 11/04/18 03:31 CTA Chest, Abdomen and Pelvis with and without Intravenous Contrast CLINICAL HISTORY: Chest pain radiating to back TECHNIQUE: Axial CTA images of the chest and abdomen with and without intravenous contrast. Reformatted images were created and reviewed. 1121.63 mGy-cm CONTRAST: With and without; OMNI 350 150 ml COMPARISON: None provided. FINDINGS: VASCULATURE: AORTA There is aneurysmal dilatation of the thoracic aorta as follows: Aortic root measures 3.5 cm. Ascending thoracic aorta at the level of the right main pulmonary artery measures 4.6 cm. Descending thoracic aorta at the same level measures 2.8 cm. Aorta at the apex of the arch measures 3.8 cm. There is mild ectasia of the abdominal aorta without jannet aneurysm. There is no thoracic or abdominal aortic dissection as clinically questioned. There is moderately severe atherosclerotic calcification of the abdominal aorta and mild to moderate atherosclerotic calcification of the thoracic aorta. PULMONARY ARTERIES No evidence for large or central pulmonary embolism. CHEST: Lungs: There is scattered atelectasis in the lungs. No dense focal consolidation. Pleural spaces: No pleural effusion. No visible pneumothorax. Heart: The heart is mildly enlarged. No significant pericardial effusion. ABDOMEN: LIVER Numerous cystic lesions in the liver, largest at the right dome measuring cuff 3.0 cm. A few subcentimeter hypodensities in the liver are too small to adequately characterize. GALLBLADDER AND BILE DUCTS Gallbladder surgically absent. PANCREAS The pancreas is somewhat atrophic. SPLEEN Unremarkable. ADRENAL No mass. KIDNEYS AND URETERS If a subcentimeter hypodensity at the lower pole of left kidney is too small to adequately characterize. STOMACH AND BOWEL Much of the colon is decompressed, limiting evaluation. No bowel obstruction. Tiny hiatal hernia. Mild sigmoid diverticulosis without convincing evidence for acute diverticulitis. APPENDIX No CT evidence of appendicitis. PELVIS: URINARY BLADDER Unremarkable. REPRODUCTIVE Unremarkable as visualized. PERITONEUM No free fluid. No free air. LYMPH NODES No lymphadenopathy is evident. BONES Moderate multilevel degenerative spine changes. IMPRESSION: 1. No evidence for large or central pulmonary embolism. 2. There is scattered atelectasis in the lungs. No dense focal consolidation. 3. The heart is mildly enlarged. 4. There is aneurysmal dilatation of the thoracic aorta as follows: Aortic root measures 3.5 cm. Ascending thoracic aorta at the level of the right main pulmonary artery measures 4.6 cm. Descending thoracic aorta at the same level measures 2.8 cm. Aorta at the apex of the arch measures 3.8 cm. There is mild ectasia of the abdominal aorta without jannet aneurysm. There is no thoracic or abdominal aortic dissection as clinically questioned. There is moderately severe atherosclerotic calcification of the abdominal aorta and mild to moderate atherosclerotic calcification of the thoracic aorta. 5. Numerous cystic lesions in the liver, largest at the right dome measuring cuff 3.0 cm. 6. Gallbladder surgically absent. 7. Tiny hiatal hernia. 8. Mild sigmoid diverticulosis without convincing evidence for acute diverticulitis. 9. Additional findings as described above. Radiology Orders: 11/03/18 22:42 CHEST PORTABLE [RAD] Stat Porcelain Enamel Laborer: Radiologist - EKG Interpretation EKG Interpretation (Text): 11/03/18 23:27 Normal sinus rhythm @88bpm 0.2mm ST elevations in V3 T-wave inversions in v3-v6 11/04/18 00:17 Normal sinus rhythm @91bpm 0.2mm ST elevations in V3 No T-wave changes Interpreted by ED Physician: Yes Type: 12 lead EKG - Medication Orders Current Medication Orders: Sodium Chloride (Sodium Chloride 0.9%) 1,000 mls @ 999 mls/hr IV .Q1H1M STA Stop: 11/03/18 23:58 Discontinued Medications Albuterol/Ipratropium (Duoneb 3 Mg/0.5 Mg (3 Ml) Ud) 3 ml IH STAT STA Stop: 11/03/18 22:55 Ketorolac Tromethamine (Toradol) 30 mg IVP STAT STA Stop: 11/03/18 22:55 Nitroglycerin (Nitrostat Sl Tab) 0.4 mg SL STAT STA Stop: 11/03/18 22:55 - Scribe Statement The provider has reviewed the documentation as recorded by the Hai Tierney Provider Scribe Attestation: All medical record entries made by the Scribe were at my direction and personally dictated by me. I have reviewed the chart and agree that the record accurately reflects my personal performance of the history, physical exam, medical decision making, and the department course for this patient. I have also personally directed, reviewed, and agree with the discharge instructions and disposition. Disposition/Present on Arrival - Present on Arrival Any Indicators Present on Arrival: No History of DVT/PE: No History of Uncontrolled Diabetes: No Urinary Catheter: No History of Decub. Ulcer: No History Surgical Site Infection Following: None - Disposition Have Diagnosis and Disposition been Completed?: Yes Diagnosis: NSTEMI (non-ST elevated myocardial infarction) Disposition: HOSPITALIZED Disposition Time: 00:05 Patient Plan: Admission, Telemetry Patient Problems: Current Active Problems Problem Status Onset NSTEMI (non-ST elevated myocardial infarction) Acute
[2018-11-03 23:11] LABS: BASO # 0.03 K/mm3 (0.0-2.0); BASO % 0.3 % (0.0-3.0); EOS # 0.2 (0.0-0.7); EOS % 1.7 % (1.5-5.0); LYMPH # 2.4 (1.2-3.4); LYMPH % 23.3 % (22.0-35.0); MEAN CELL VOLUME 92.2 fl (80.0-105.0); MEAN CORPUSCULAR HEMOGLOBIN 30.4 pg (25.0-35.0); MEAN PLATELET VOLUME 10.2 fl (7.0-11.0); MONO # 0.7 (0.1-0.6); MONO % 6.8 % (1.0-6.0); RBC 4.6 10^6/uL (3.5-6.1); RED CELL DISTRIBUTION WIDTH 13.8 % (11.5-14.5); WHITE BLOOD COUNT 10.5 10^3/uL (4.5-11.0)
[2018-11-03 23:21] LABS: PARTIAL THROMBOPLASTIN TIME 26.7 Seconds (26.9-38.3)
[2018-11-03 23:22] LABS: ALB/GLOB RATIO 1.4 (1.1-1.8); ALBUMIN 4.1 g/dL (3.0-4.8); ALT/SGPT 14 U/L (7-56); AST/SGOT 24 U/L (14-36); BLOOD UREA NITROGEN 19 mg/dL (7-21); CALCIUM 9.2 mg/dL (8.4-10.5); GFR NON-AFRICAN AMERICAN > 60
[2018-11-03 23:28] LABS: D DIMER < 200 ng/mlDDU (0-243)
[2018-11-03 23:55] LABS: B-TYPE NATRIURETIC PEPTIDE 100 pg/mL (0-450)
[2018-11-04] MEDS ORDERED: Nitroglycerin 2% Ointment Foilpak UD TOP STA (00:12)
[2018-11-04] MEDS ORDERED: Sodium Chloride 0.9% 1,000 ML IV STA (00:24)
[2018-11-04 01:28] LABS: PH,URINE 6.5 (4.7-8.0); URINE BILIRUBIN NEGATIVE (NEGATIVE); URINE BLOOD TRACE-INTACT (NEGATIVE); URINE GLUCOSE (UA) NEGATIVE (NEGATIVE); URINE LEUKOCYTE ESTERASE SMALL Leu/uL (NEGATIVE); URINE PROTEIN NEGATIVE mg/dL (<30 mg/dL); URINE UROBILINOGEN 0.2 E.U./dL (<1 E.U./dL)
[2018-11-04 01:44] LABS: URINE APPEARANCE CLEAR (CLEAR); URINE COLOR YELLOW (YELLOW)
[2018-11-04 01:53] LABS: URINE BACTERIA OCC /hpf; URINE RBC 0 - 2 /hpf (0-2)
--- NOTE | 2018-11-04 08:23 | CT ---
PROCEDURE: CT Angiography Chest, Abdomen and Pelvis with and without intravenous contrast HISTORY: chest pain radiating to back COMPARISON: None. TECHNIQUE: Contiguous axial images of the chest, abdomen and pelvis were obtained in the phase of aortic enhancement. A noncontrast enhanced CT of the chest was also obtained to evaluate for possible intramural thrombus. Coronal and sagittal reformats were generated. IV dose administered: 150 cc of Omni 350 Radiation dose: Total exam DLP = 1121.62 mGy-cm. This CT exam was performed using one or more of the following dose reduction techniques: Automated exposure control, adjustment of the mA and/or kV according to patient size, and/or use of iterative reconstruction technique. FINDINGS: CT ANGIOGRAPHY OF THE CHEST WITH & WITHOUT CONTRAST: AORTA (CHEST AND ABDOMEN): The thoracic and abdominal aorta are unremarkable, without aneurysm, dissection or rupture. No intramural thrombus identified in the thoracic aorta on the non-contrast ct of the chest. The celiac axis, superior mesenteric artery, inferior mesenteric artery and the renal arteries are widely patent. The pelvic arteries are unremarkable. There is no evidence of pulmonary embolus. There is dilatation of the ascending aorta measuring 4.7 cm. At the same level the descending aorta measures 2.9 cm LUNGS: Clear. No nodule, mass or consolidation. MEDIASTINUM: Unremarkable. Normal caliber aorta and pulmonary arterial trunk. No aortic dissection. Normal size heart. LYMPH NODES: Unremarkable. PLEURA: Unremarkable. No pneumothorax. No pleural fluid. BONES: Unremarkable. OTHER FINDINGS: None. CT ANGIOGRAPHY OF THE ABDOMEN AND PELVIS WITH CONTRAST: LIVER: Unremarkable. No gross lesion or ductal dilatation. Multiple simple cysts in the liver GALLBLADDER AND BILE DUCTS: Removed PANCREAS: Unremarkable. No gross lesion or ductal dilatation. SPLEEN: Unremarkable. ADRENALS: Unremarkable. No mass. KIDNEYS AND URETERS: Unremarkable. No hydronephrosis. No solid mass. VASCULATURE: Unremarkable. No aortic aneurysm. No aortic atherosclerotic calcification or mural plaque present. STOMACH AND BOWEL: Unremarkable. No obstruction. No gross mural thickening. APPENDIX: Normal appendix. PERITONEUM: Unremarkable. No free fluid. No free air. LYMPH NODES: Unremarkable. No enlarged lymph nodes. BLADDER: Unremarkable. REPRODUCTIVE: Unremarkable. BONES: No acute fracture. OTHER FINDINGS: The report concurs with the preliminary [facility] report IMPRESSION: There is no evidence of pulmonary embolus. There is dilatation of the ascending aorta measuring 4.7 cm. At the same level the descending aorta measures 2.9 cm No evidence of aortic dissection
[2018-11-04] MEDS ORDERED: Arformoterol 15 mcg/2 ml Inh Sol IH SCH (08:30)
[2018-11-04] MEDS ORDERED: Budesonide 0.5 mg/2 ml Inhal Susp UD IH SCH (08:30)
--- NOTE | 2018-11-04 08:55 | RAD ---
Date of service: 11/03/2018 HISTORY: chest pain COMPARISON: 06/09/2018 FINDINGS: LUNGS: No active pulmonary disease. PLEURA: No significant pleural effusion identified, no pneumothorax apparent. CARDIOVASCULAR: Aortic calcification and tortuosity Normal cardiac size. No pulmonary vascular congestion. OSSEOUS STRUCTURES: No significant abnormalities. VISUALIZED UPPER ABDOMEN: Normal. OTHER FINDINGS: None. IMPRESSION: No active disease.
[2018-11-04 09:01] LABS: IRON 73 ug/dL (45-180)
[2018-11-04 09:11] LABS: % IRON SATURATION 33 % (20-55); TOTAL IRON BINDING CAPACITY 222 ug/dL (265-497)
[2018-11-04] MEDS ORDERED: Lidocaine PF 2% (5 ml) Inj (For Cardiac Arrhy) ONE (09:15)
[2018-11-04] MEDS ORDERED: Phenylephrine 10 mg/ml Inj ONE (09:15)
[2018-11-04] MEDS ORDERED: Nitroglycerin 50mg in D5W 0 MG/0 ML BOTTLE IV ONE (09:16)
[2018-11-04] MEDS ORDERED: Iohexol 350mgl/ml 50 ML ONE (09:16)
[2018-11-04] MEDS ORDERED: Iodixanol 320 MG/ML 200 ML BOTTLE IV ONE (09:16)
[2018-11-04] MEDS ORDERED: Iodixanol 320 MG/ML 100 ML BOTTLE IV ONE (09:16)
[2018-11-04 09:38] LABS: TROPONIN I 1.48 ng/mL
[2018-11-04] MEDS: Albuterol-Ipratrop 3 mg / 0.5 (3 ml) UD IH SCH ×3 (09:53→16:20)
[2018-11-04] MEDS ORDERED: Midazolam 2 MG/2 ML VIAL ONE (10:08)
--- NOTE | 2018-11-04 10:41 | CARD ---
APPROVED REPORT Date of service: 11/04/2018 EKG Measurement Heart [id number] [place] [id number] <Conclusion> Normal sinus rhythm Minimal voltage criteria for LVH, may be normal variant Cannot rule out Anterior infarct, age undetermined Abnormal ECG
--- NOTE | 2018-11-04 10:42 | CARD ---
APPROVED REPORT Date of service: 11/03/2018 EKG Measurement Heart [id number] [place] [id number] <Conclusion> Normal sinus rhythm Moderate voltage criteria for LVH, may be normal variant Cannot rule out Septal infarct, age undetermined Abnormal ECG
--- NOTE | 2018-11-04 11:35 | CPOSTOP ---
DATE: 11/04/2018 PHYSICIAN: Dr. Asa Mixon. MEAT WASHER: Efren Lockhart COSMETIC SALES ASSISTANT. TYPE OF ANESTHESIA: Moderate conscious sedation, total 2 mg of Versed and 100 of fentanyl given. PRE-PROCEDURE DIAGNOSES: Unstable angina and [id number] myocardial infarction. PROCEDURES PERFORMED: 1. Left heart catheterization. 2. Aortogram. FINDINGS: 1. Nonobstructive coronary artery disease. 2. Apical cardiomyopathy. 3. Dilated ascending aorta. FINAL DIAGNOSES: 1. Takotsubo syndrome./Stress related cardiomyopathy./ Apical cardiomyopathy. 2. Non obstructive CAD 3. Ascending aortic Aneurysm POST PROCEDURE CONDITION: The patient's condition is stable. VASCULAR ACCESS SITE: Right femoral artery. CLOSURE DEVICE: Angio-Seal. TOTAL RADIATION DOSE: 5785.8 milligray unit. TOTAL FLUORO TIME: 2.8 minutes. Asa Mixon MD [id number]
--- NOTE | 2018-11-04 12:25 | HP ---
DATE OF EXAM: 11/04/2018 The patient was seen and examined at bedside on 11/04/2018. CHIEF COMPLAINT: Chest pain and shortness of breath. HISTORY OF PRESENT ILLNESS: Ms. Yolanda Kapadia is 78-year-old female with past medical history of hypertension, hypercholesterolemia and asthma, came to the emergency department with chest pain and shortness of breath. The patient says that she had dinner with her daughter and then symptoms began in short while after. The patient stated that she started to vomit and have chest pain with shortness of breath. The patient stated it felt worse than her usual asthma symptoms as she has history of asthma. The patient states that she used her inhalers with some relief. The patient's daughter informed, given her two baby aspirin at the time of pain. The patient denies any fevers or chills. No abdominal pain. No diarrhea. No back pain or neck pain. The patient has history of osteomyelitis of the foot and antibiotics were given. PAST MEDICAL HISTORY: Hypertension, asthma, osteomyelitis of the right foot and cholecystectomy. FAMILY HISTORY: Father and mother noncontributory. HABITS: Never smoked. No drug. No ethanol. ALLERGY: THE PATIENT IS NOT ALLERGIC TO ANY MEDICATION. HOME MEDICATIONS: Symbicort, Benicar, Lipitor. REVIEW OF SYSTEMS: The patient is seen and examined at the bedside in her room. Dr. Mixon also saw the patient. The patient does not have fever. No night sweats. This moment, she was not wheezing or coughing. Chest pain on palpation. No nausea or vomiting at this moment. No abdominal pain. No diarrhea. No back pain. No neck pain. No headache or dizziness. PHYSICAL EXAMINATION: VITAL SIGNS: Temperature 98.4, pulse 80, blood pressure 110/61, HEENT: Head normocephalic and atraumatic. Eyes; PERRLA. Extraocular muscles intact. Conjunctivae clear. Nose patent. Mucous membrane moist. NECK: Supple. No carotid bruit. No JVD or thyromegaly. CHEST: Bilaterally symmetrical. HEART: S1 and S2 positive. LUNGS: Clear to auscultation. ABDOMEN: Soft. Bowel sounds present. No organomegaly. EXTREMITIES: No edema. No cyanosis. NEUROLOGIC: The patient is awake and alert. Moving all 4 extremities. No focal deficits. LABORATORY DATA: White blood cells 10.5, hemoglobin 14.0, hematocrit 42.4, and platelets 173. Sodium 138, potassium 3.9, BUN 19, and creatinine 0.8. Glucose 149, iron 73, bilirubin 1.4. Cardiac enzymes, troponin 0.34, repeat is 1.48. ASSESSMENT AND PLAN: Ms. Yolanda Kapadia is 78-year-old lady, with the hyperglycemia, abnormal liver function test, troponin is increasing, has hematuria, leukocyte esterase positive, CT angio done, history of hypertension, hypercholesterolemia, asthma, and history of osteomyelitis of the foot, came with chest pain and shortness of breath. Discussion done with Dr. Mixon. According to him, the patient needs catheterization. He is talking to the family. History of cholecystectomy. Gastrointestinal and deep venous thrombosis prophylaxis. Started the patient on aspirin, Brovana, Cozaar, Lipitor, metoprolol, and Pepcid given for gastrointestinal prophylaxis. The patient is given Plavix by Dr. Mixon. Repeat labs. We will follow up. Nuha Ha MD MTDD
--- NOTE | 2018-11-04 12:38 | CARD ---
APPROVED REPORT Date of service: 11/04/2018 Procedure(s) performed: Left Heart Catheterization ascending aortogram HISTORY The patient is a 78 year-old female with a history of : most recent EF: 67%. (EF Method: RADIONUCLIDE), hypertension , dyslipidemia , Hx of HTN, hyperlipidemia, ascending aortic aneurysm by CT scan admitted with NSTEMI. INDICATION The indication(s) include : unstable angina , non-STEMI . CASE TECHNIQUE The patient was brought urgently to the Cardiac Catheterization Laboratory in a fasting state and was prepped and draped in a sterile manner. The right femoral groin was infiltrated with 2% Lidocaine subcutaneous anesthesia. A 6 Fr x 11 cm Yumi sheath was inserted into the right femoral artery without difficulty. Coronary angiography was performed using coronary diagnostic catheters. The left coronary system was accessed and visualized with a Diagnostic , 6F JL4 CATH DXT 100 CM catheter. The right coronary system was accessed and visualized with a Diagnostic ,6F JR 4 CATH DXT 100 CM catheter. The left ventricle was accessed and visualized with a 6F PIGTAIL 145 CATH DXT 110 CM catheter. Left ventriculogram was performed in MLOINA projection. Closure device was deployed with a 6 Fr Angio-Seal without any complications. The patient tolerated the procedure well and there were no complications associated with the procedure. Vessel Analysis The patient's coronary anatomy is right dominant. The left main coronary artery is a large size vessel without significant stenosis. The left main bifurcates to the left anterior descending and circumflex. The left anterior descending artery is a medium size vessel with diffuse calcification noted throughout this vessel and without significant stenosis. The first diagonal branch is a medium size vessel with diffuse calcification noted throughout this vessel and without significant stenosis. The second diagonal branch is a small size vessel with diffuse calcification noted throughout this vessel and without significant stenosis. There is a 50% stenosis in the ostial segment. The third diagonal branch is a medium size vessel with diffuse calcification noted throughout this vessel and without significant stenosis. The circumflex artery is a medium size vessel with diffuse calcification noted throughout this vessel and without significant stenosis. There is a 30-40% stenosis in the proximal segment. The first obtuse marginal branch is a large size vessel with diffuse calcification noted throughout this vessel and without significant stenosis. The second obtuse marginal branch is a medium size vessel with diffuse calcification noted throughout this vessel and without significant stenosis. The right coronary artery is a large size vessel with intimal irregularities and without significant stenosis. The right posterior descending artery is a medium size vessel with diffuse calcification noted throughout this vessel and without significant stenosis. The right posterolateral branch is a large size vessel with diffuse calcification noted throughout this vessel and with significant stenosis. There is a 60% stenosis in the ostial segment. Left Ventricle The left ventricle is Enlarged in size with moderate to Severely decreased contractility. Non-Ischemic cardiomyopathy. The left ventricular ejection fraction is estimated to be 25%. The left ventricular end diastolic pressure is 20-25 mmHg. There was no gradient across the aortic valve upon pullback. aortogram Done showed Dilated asc aorta. Conclusion Non Obstructive CAD limited to PLV Br of RCA 60% stenosis Non Ischemic CMP- EF-25%,EDP-20-25 mmof Hg. Takasubo Cardiomyopathy or Stress Related CMP/ Apical CMP. Ascending Aortic Aneurysm. Recommendations ASA. Beta adelaide, SOFIA/ARB, gentle diuretic. Re-assess LV Fx in 3-6 months if remains less than 35% consider AICD Close F/u for Asc. aortic aneurysm and CTS eval and F/u. F/u echo to assess size of aortic root and aorta and AR, and EF% Cc; Deyanira Duarte MD
[2018-11-04 13:15] LABS: FOLATE 7.7 ng/mL
--- NOTE | 2018-11-04 14:12 | CON ---
DATE: 11/04/2018 PULMONARY CONSULT NOTE REFERRING PHYSICIAN: Nuha aH MD REASON FOR CONSULT: Shortness of breath and asthma. HISTORY OF PRESENT ILLNESS: This is a 78-year-old female with past medical history significant for cholecystectomy, hypertension, hypocholesteremia and asthma. The patient presented to emergency room complaining of shortness of breath and chest pain. The patient states that she flew from [place] to [place] on Saturday and on Saturday while walking off from her daughter's house, she became short of breath, had diarrhea, vomiting and chest pain. She said that she took her inhaler with some relief, but still was not feeling well so she came to the emergency room. Daughter gave the the patient two baby aspirins prior to coming to emergency room. At this time, the patient is seen lying in bed status post cardiac catheterization this morning. No acute distress. Reports still having some shortness of breath, some back pain with deep breaths. PAST MEDICAL HISTORY: As per history of present illness. ALLERGIES: NO KNOWN ALLERGIES. FAMILY HISTORY: No significant cardiopulmonary disease. SOCIAL HISTORY: Nonsmoker. No ETOH abuse. No illicit drug use. MEDICATIONS: Reviewed. DuoNeb 3 mL inhalation every 6 hours, Brovana 15 mcg every 12 hours, aspirin 81 mg daily, Lipitor 10 mg daily, Pulmicort 0.5 mg every 12 hours, Pepcid 40 mg at bedtime, Lasix 40 mg one time dose, Cozaar 15 mg daily, metoprolol tartrate 25 mg twice a day and sodium chloride 0.9%, 1000 mL at 50 mL per hour. REVIEW OF SYSTEMS: No headache, rhinitis, cough, chest pain, abdominal pain, nausea, vomiting, diarrhea, leg pain and leg swelling reported. The patient reports that she does not snore, does complaint of some shortness of breath at times, does complaint of back pain when taking deep breath. PHYSICAL EXAMINATION: GENERAL: No acute distress. VITAL SIGNS: Blood pressure 117/72, pulse 76, temperature 97.9 and oxygen saturation 94% on room air. HEENT: Moist mucous membrane. Mallampati score of 4. Crowded airway. NECK: Supple. No JVD. CHEST: Fair airflow bilaterally. CARDIOVASCULAR: S1 and S2. ABDOMEN: Soft and nontender. No distention. No organomegaly. EXTREMITIES: No bilateral lower extremity edema. NEUROLOGICAL: Awake, alert and verbal. Follows commands. LABORATORY DATA: Reviewed. WBC 10.5, RBC 4.6, hemoglobin 14, hematocrit 42.4 and platelets 173. APTT 26.7 and D-dimer less than 200. Sodium 138, potassium 3.9, chloride 107, carbon dioxide 24, anion gap 12, BUN 19, creatinine 0.8, GFR greater than 60, random glucose 149, hemoglobin A1C 5.5, calcium 9.2, magnesium 1.9, iron 73, TIBC of 6.2, percent saturation 33, total bilirubin 1.4, AST 24, ALT 14, alkaline phosphatase 49, lactate dehydrogenase 401, total creatine kinase 89, troponin 1.48, proBNP 100, total protein 7.1, albumin 4.1, globulin 3.0 and albumin-globulin ratio 1.4. Triglycerides 75, cholesterol 171, LDL cholesterol 112 and HDL cholesterol 43. Urinalysis shows urine blood trace, urine leukocyte esterase small. Electrocardiogram shows normal sinus rhythm. Chest x-ray shows no active disease. Angio CT shows no evidence of pulmonary embolism, dilatation of ascending aorta measuring 4.7 cm, same level of descending aorta measuring 2.9 cm no evidence of aortic dissection. Cardiac cath report pending. IMPRESSION AND PLAN: [id number] myocardial infarction, hypertension, asthma, hypercholesteremia, gastroesophageal reflux disease cannot be ruled out. We will discontinue Pepcid and start the patient on Protonix. We will start on sequential compression device or deep venous thrombosis prophylaxis as the patient is status post cardiac cath this morning. Continue cardiac workup. Continue inhaled bronchodilators. Echocardiogram ordered to be done. We will followup when available. We will recommend this patient have full pulmonary function test and sleep study as outpatient, may be some component of sleep apnea, head of bed elevated at 45 degrees and sleep apnea precaution. This patient was seen and examined with Dr. Leone. Discussed assessment and plan as described above. This patient was seen and examined by Azael Madrigal, nurse practitioner. Discussed assessment and plan as described above. Thank you for this consult. We will follow with you. Azael Madrigal APN Asa Leone MD [facility] # [id number]
[2018-11-04] MEDS ORDERED: Bacitracin 500 Units/gm Oint Foilpak UD ONE (16:08)
[2018-11-04] MEDS: Sodium Chloride 0.9% 1,000 ML IV SCH (16:13)
--- NOTE | 2018-11-04 18:42 | CARD ---
APPROVED REPORT Date of service: 11/04/2018 EXAM: Two-dimensional and M-mode echocardiogram with Doppler and color Doppler. INDICATION Non STEMI CP 2D DIMENSIONS Left Atrium (2D)3.9 (1.6-4.0cm)IVSd1.3 (0.7-1.1cm) LVDd4.7 (3.9-5.9cm)PWd1.3 (0.7-1.1cm) M-Mode DIMENSIONS Aortic Root3.50 (2.2-3.7cm)Aortic Cusp Exc.1.50 (1.5-2.0cm) Aortic Valve AoV Peak Aawzhxfc092.0cm/sAoV VTI35.8cmAO Peak GR.14mmHg LVOT Peak Gfbmvjcx894.0cm/sLVOT VTI28.30cmAO Mean GR.7mmHg AI P 1/2 Nhiy093xm Mitral Valve MV E Mlhabvdv23.0cm/sMV A Bufflnof35.7cm/sE/A ratio0.6 TDI Lateral E' Peak V4.39cm/sMedial E' Peak V5.07cm/sE/Lateral E'13.2 E/Medial E'11.4 Pulmonary Valve PV Peak Xbhyrbeu43.2cm/sPV Peak Grad.1mmHg Tricuspid Valve TR Peak Wfueazza148wp/sRAP SGXNEIGQ91lnFtUN Peak Gr.41mmHg HRRM65jgUw LEFT VENTRICLE The left ventricle is normal size. There is mild concentric left ventricular hypertrophy. Proximal septal thickening is noted. The systolic function is moderately impaired.EF-25-30% There is moderate to severe hypokinesis in the apical anterior wall. Transmitral Doppler flow pattern is Grade III-reversible restrictive diastolic dysfunction. No left ventricle thrombus noted on this study. There is no ventricular septal defect visualized. There is no left ventricular aneurysm. There is no mass noted in the left ventricle. ATRIA The left atrium size is normal. The right atrium size is normal. The interatrial septum is intact with no evidence for an atrial septal defect. AORTIC VALVE The aortic valve is calcified and displays decreased opening. There is mild aortic regurgitation. Aortic sclerosis Vs Mild There is no aortic valvular vegetation. MITRAL VALVE The mitral valve is thickened but opens well. Mitral regurgitation is trace. There is no mitral valve stenosis. There is no evidence of mitral valve prolapse. TRICUSPID VALVE The tricuspid valve leaflets are thickened , but open well. There is moderate tricuspid regurgitation.RVSP-51 mmof Hg. There is no tricuspid valve stenosis. There is no tricuspid valve prolapse or vegetation. PULMONIC VALVE The pulmonary valve is normal in structure. There is trace to mild pulmonic valvular regurgitation. There is no pulmonic valvular stenosis. GREAT VESSELS The aortic root is normal in size. The ascending aorta is Mildly dilated. The pulmonary artery is normal. The IVC is normal in size and collapses >50% with inspiration. PERICARDIAL EFFUSION There is no pleural effusion. There is no pericardial effusion. <Conclusion> The left ventricle is normal size. There is mild concentric left ventricular hypertrophy. Proximal septal thickening is noted. The systolic function is moderately impaired.EF-25-30% There is mild aortic regurgitation. Aortic sclerosis Vs Mild Mitral regurgitation is trace. There is moderate tricuspid regurgitation.RVSP-51 mmof Hg. The aortic root is normal in size. The ascending aorta is Mildly dilated. There is no pericardial effusion. S/p NSTEMI possible Takasubo CMP.
--- NOTE | 2018-11-04 18:43 | CON ---
DATE: 11/04/2018 CONSULT SERVICE: Cardiology. REASON FOR CONSULTATION: Non-ST segment myocardial infarction, cardiac evaluation. BRIEF CLINICAL HISTORY: This is a 78-year-old female with past medical history significant for history of COPD, mild hypertension, hyperlipidemia, came to the emergency room with shortness of breath, it is started yesterday. Denies any chest pain. History of hypertension, hyperlipidemia, and history of asthma. She said that she ate the dinner with the daughter and then after that the patient became short of breath, started to vomit and mild some chest discomfort mostly short of breath and came to the emergency room. EKG initial presentation shows normal signs of poor RR progression and no acute ST-T changes noted. First troponin was 0.3, repeat pending. Currently, denies any chest pain. PAST MEDICAL HISTORY: Significant for hypertension, hyperlipidemia, and asthma. PAST SURGICAL HISTORY: Significant for hysterectomy, cholecystectomy, and right foot ulcer. SOCIAL HISTORY: Denies any smoking. Denies any history of alcohol abuse. CURRENT MEDICATIONS: The patient is taking at home; tramadol, Benicar, metoprolol tartrate 25 p.o. b.i.d., meclizine, Zyvox for foot, clotrimazole, atorvastatin, aspirin, and amoxicillin. FAMILY HISTORY: Significant for coronary artery disease, brother at age of . Father had early premature coronary artery disease. PREVIOUS CARDIAC WORKUP FOLLOWS: The patient had an echocardiography 06/17/2018 that showed normal chamber size, ejection fraction 60% to 65%, mild aortic regurgitation, mild valvular aortic stenosis, trace mitral regurgitation, tricuspid regurgitation, and RV systolic pressure 34. The patient had a stress test on 06/18/2018 with the patient came in with foot ulcers nonhealing and because of multiple risk factor, the patient had stress test that shows essentially normal myocardial perfusion study with IV Lexiscan dated 06/18/2018. The patient had a CT angio done because of the shortness of breath to rule out PE pulmonary protocol and that mentioned no evidence of pulmonary embolism, dilatation of ascending aorta measured 4.7 cm at the level of the descending aorta measured 2.9 cm, so dilatation of the ascending aorta noted. Aortic root measurement by echo 06/17/2018 is 3.3 cm. REVIEW OF SYSTEMS: As per HPI. PHYSICAL EXAMINATION: VITAL SIGNS: Height of the patient is 5 feet 5 inches, weight of the patient 150 pounds, and body mass index 25 kg/m2. Temperature afebrile, heart rate 72, and blood pressure 117/72. HEENT: PERRLA. Extraocular muscles intact. NECK: Supple. No carotid bruits or thyromegaly. CHEST: Clear to auscultation. HEART: S1 and S2 regular. ABDOMEN: Soft. EXTREMITIES: Clubbing and cyanosis negative. LABORATORY DATA: Blood workup; WBC 10.5, hemoglobin 14, hematocrit 42.4, and platelet count 173. Chemistry shows sodium 130, potassium 3.9, chloride 107, carbon dioxide 24, anion gap of 12, BUN 19, and creatinine 0.8. Troponin 0.3. Triglycerides 75, cholesterol 171, LDL 112, HDL 43, and repeat troponin pending. IMPRESSION: A 78-year-old female with a past medical history significant for hypertension, hyperlipidemia, chronic obstructive pulmonary disease, arthritis, status post foot surgery, strong family history of coronary artery disease in his father and brother at age of 42 and father also has premature coronary artery disease, admitted with unstable angina. RECOMMENDATIONS: We will load with Plavix and aspirin. We will discuss with the patient's daughter, Yolanda Funes, telephone [phone]. Risks, benefits, and alternatives were discussed with the patient and we will proceed for cardiac catheterization. Since the patient had CT angio done and dilated ascending aorta as well as aortic stenosis, we will the right femoral . Further recommendation after cardiac catheterization. We will also get the echo to assess aortic regurgitation, aortic stenosis and dilatation of the aortic root. We will follow with you. Thank you Dr. Ha for providing us the opportunity in taking care of the patient, Yolanda Kapadia. Asa Mixon MD
[2018-11-04] MEDS ORDERED: DiphenhydrAMINE 12.5 mg/5 ml LIQ UD (5 ml) PO STA (22:10)
--- NOTE | 2018-11-04 22:13 | CP.PCM.PN ---
<Laurita Collier - Last Filed: 11/04/18 22:11> Subjective - Date & Time of Evaluation Date of Evaluation: 11/04/18 Time of Evaluation: 22:11 - Subjective Subjective: PGY1 House Doctor: Patient was seen and evaluated at bedside. Per Nurse, Patient wanted something to help her sleep. Patient is s/p cath procedure today. Patient hemodynamically stable. Benadryl 12.5mg PO stat ordered. Objective - Vital Signs/Intake and Output Vital Signs (last 24 hours): Temp Pulse Resp BP Pulse Ox 97.8 F 90 20 129/84 94 L 11/04/18 18:27 11/04/18 19:07 11/04/18 18:27 11/04/18 19:07 11/04/18 06:00 Intake and Output: 11/04/18 11/05/18 18:59 06:59 Intake Total 1240 Balance 1240 - Medications Medications: Current Medications Albuterol/Ipratropium (Duoneb 3 Mg/0.5 Mg (3 Ml) Ud) 3 ml IH [id number] [facility] Last Admin: 11/04/18 16:20 Dose: 3 ml Arformoterol Tartrate (Brovana) 15 mcg IH [id number] [facility] Aspirin (Ecotrin) 81 mg PO DAILY [facility] Last Admin: 11/04/18 09:23 Dose: 81 mg Atorvastatin Calcium (Lipitor) 10 mg PO DAILY [facility] Last Admin: 11/04/18 09:22 Dose: 10 mg Budesonide (Pulmicort Respules) 0.5 mg IH [id number] [facility] Diphenhydramine HCl (Benadryl) 12.5 mg PO STAT STA Stop: 11/04/18 22:11 Sodium Chloride (Sodium Chloride 0.9%) 1,000 mls @ 50 mls/hr IV .Q20H CAROLYN Stop: 11/05/18 23:59 Last Admin: 11/04/18 16:13 Dose: 50 mls/hr Losartan Potassium (Cozaar) 50 mg PO DAILY [facility] Last Admin: 11/04/18 09:22 Dose: 50 mg Metoprolol Tartrate (Lopressor) 25 mg PO BID [facility] Last Admin: 11/04/18 19:07 Dose: 25 mg Pantoprazole Sodium (Protonix Ec Tab) 40 mg PO HS [facility] - Labs Labs: 11/03/18 23:06 11/03/18 23:06 APTT 26.7 Seconds (26.9-38.3) L 11/03/18 23:06 <Mary Jo Phillips - Last Filed: 11/05/18 06:11> Objective - Vital Signs/Intake and Output Vital Signs (last 24 hours): Temp Pulse Resp BP Pulse Ox 98.0 F 93 H 20 121/78 96 11/05/18 00:01 11/05/18 02:00 11/05/18 00:01 11/05/18 00:01 11/05/18 00:01 Intake and Output: 11/04/18 11/05/18 18:59 06:59 Intake Total 1240 360 Balance 1240 360 - Medications Medications: Current Medications Albuterol/Ipratropium (Duoneb 3 Mg/0.5 Mg (3 Ml) Ud) 3 ml IH [id number] [facility] Last Admin: 11/05/18 01:40 Dose: 3 ml Arformoterol Tartrate (Brovana) 15 mcg IH [id number] [facility] Aspirin (Ecotrin) 81 mg PO DAILY [facility] Last Admin: 11/04/18 09:23 Dose: 81 mg Atorvastatin Calcium (Lipitor) 10 mg PO DAILY [facility] Last Admin: 11/04/18 09:22 Dose: 10 mg Budesonide (Pulmicort Respules) 0.5 mg IH [id number] [facility] Sodium Chloride (Sodium Chloride 0.9%) 1,000 mls @ 50 mls/hr IV .Q20H [facility] Stop: 11/05/18 23:59 Last Admin: 11/04/18 16:13 Dose: 50 mls/hr Losartan Potassium (Cozaar) 50 mg PO DAILY [facility] Last Admin: 11/04/18 09:22 Dose: 50 mg Metoprolol Tartrate (Lopressor) 25 mg PO BID [facility] Last Admin: 11/04/18 19:07 Dose: 25 mg Pantoprazole Sodium (Protonix Ec Tab) 40 mg PO HS [facility] Last Admin: 11/04/18 22:18 Dose: Not Given - Labs Labs: 11/03/18 23:06 11/03/18 23:06 APTT 26.7 Seconds (26.9-38.3) L 11/03/18 23:06 Attending/Attestation - Attestation I have personally seen and examined this patient.: No I have fully participated in the care of the patient.: No I have reviewed all pertinent clinical information, including history, physical exam and plan: No
[2018-11-04] MEDS: Pantoprazole 40 mg EC Tab PO SCH ×2 (22:16→22:18)
[2018-11-05] MEDS: Albuterol-Ipratrop 3 mg / 0.5 (3 ml) UD IH SCH ×4 (01:40→19:25)
[2018-11-05] MEDS: Sodium Chloride 0.9% 1,000 ML IV SCH (06:09)
[2018-11-05 07:09] LABS: HEMOGLOBIN 14.2 g/dL (12.0-16.0); MEAN CORPUSCULAR HEMOGLOBIN 30.3 pg (25.0-35.0); MEAN CORPUSCULAR HGB CONC 33.3 g/dl (31.0-37.0); MEAN PLATELET VOLUME 10.7 fl (7.0-11.0); RBC 4.69 10^6/uL (3.5-6.1); RED CELL DISTRIBUTION WIDTH 13.9 % (11.5-14.5); WHITE BLOOD COUNT 11.2 10^3/uL (4.5-11.0)
[2018-11-05 07:30] LABS: BLOOD UREA NITROGEN 12 mg/dL (7-21); CALCIUM 8.8 mg/dL (8.4-10.5); GFR NON-AFRICAN AMERICAN > 60
[2018-11-05] MEDS ORDERED: Potassium Chloride 20 mEq ER Tab PO ONE (10:04)
[2018-11-05] MEDS ORDERED: cefTRIAXone 1 gm 1 GM/100 ML BAG IVPB STA (12:16)
--- NOTE | 2018-11-05 13:07 | PN ---
DATE: 11/05/2018 REASON FOR CONSULTATION AND FOLLOWUP: Dld-JB-[id number] myocardial infarction, takotsubo syndrome, status post cardiac catheterization, and nonobstructive coronary artery disease. SUBJECTIVE: The patient denies any chest pain, shortness of breath, or any palpitation. OBJECTIVE: Examination as follows; GENERAL: Not in apparent distress. VITAL SIGNS: Temperature afebrile, heart rate 96, and blood pressure 123/83. HEENT: PERRLA; extraocular muscles intact. NECK: Supple. No carotid bruits or thyromegaly. CHEST: Clear to auscultation. HEART: S1 and S2 regular. ABDOMEN: Soft. EXTREMITIES: Clubbing and cyanosis negative. LABORATORY DATA: WBC 11, hemoglobin 14, hematocrit 42.7, and platelet count 171. Chemistry shows sodium 130, potassium 3.7, chloride 105, carbon dioxide 26, anion gap of 11, BUN 12, and creatinine 0.8. IMPRESSION: A 78-year-old female, with past medical history of hypertension, hyperlipidemia, and chronic obstructive pulmonary disease, admitted with amc-RG-bjujmrd myocardial infarction, possibly secondary to takotsubo syndrome, acute stressful situation at home. The patient underwent cardiac catheterization that revealed mild nonobstructive coronary artery disease, significantly decreased left ventricular function, hypokinesis, and ejection fraction 25% to 30%. The patient had stress test and echocardiogram done, less than six months on 06/16/2018. At that time, echocardiogram shows normal chamber size, ejection fraction 60%-65%. The patient has also stress test on 06/18/2018 that shows no ischemia and preserved left ventricular function. Yesterday the patient had significantly decreased ejection fraction by catheterization as well as echocardiogram, most likely secondary to takotsubo cardiomyopathy and apical hypokinesis. RECOMMENDATIONS: Continue beta adelaide 25 p.o. twice a day, continue atorvastatin, continue gentle Lasix, continue aspirin, Plavix has been discontinued and continue low dose of SOFIA inhibitor. The patient was not started yesterday SOFIA inhibitor because the patient got CT angio and 50 mL for cath. Today, renal function is stable. We will discontinue IV fluid. The patient is on ARB, already. We will continue digoxin and low dose of diuretics p.o. Possible discharge in a day or two. We will follow with you. Suggest to reassess LV function in three to six months. If remains below 25 which is unlikely, then consider AICD. Most likely the patient's EF will improve. After the stressful situation event fade away. Discussed with the patient; discussed with the patient's daughter, oYlanda Funes. Asa Mixon MD
[2018-11-05] MEDS: Digoxin 250 mcg (0.25 mg) Tab PO SCH (13:20)
--- NOTE | 2018-11-05 13:28 | RAD ---
Date of service: 11/05/2018 HISTORY: fever COMPARISON: 11/03/2018 TECHNIQUE: Chest PA and lateral FINDINGS: LUNGS: No active pulmonary disease. PLEURA: No significant pleural effusion identified. No pneumothorax apparent. CARDIOVASCULAR: Aortic calcification and tortuosity Normal cardiac size. No pulmonary vascular congestion. OSSEOUS STRUCTURES: No significant abnormalities. VISUALIZED UPPER ABDOMEN: Normal. OTHER FINDINGS: None. IMPRESSION: No active disease.
[2018-11-05 13:40] LABS: MEAN CELL VOLUME 90.4 fl (80.0-105.0); MEAN CORPUSCULAR HEMOGLOBIN 30.6 pg (25.0-35.0); MEAN CORPUSCULAR HGB CONC 33.8 g/dl (31.0-37.0); MEAN PLATELET VOLUME 10.8 fl (7.0-11.0); RBC 4.58 10^6/uL (3.5-6.1); RED CELL DISTRIBUTION WIDTH 13.7 % (11.5-14.5); WHITE BLOOD COUNT 11.2 10^3/uL (4.5-11.0)
[2018-11-05 13:48] LABS: ALB/GLOB RATIO 1.2 (1.1-1.8); ALT/SGPT 29 U/L (7-56); AST/SGOT 34 U/L (14-36); BLOOD UREA NITROGEN 12 mg/dL (7-21); GFR NON-AFRICAN AMERICAN > 60
[2018-11-05] MEDS ORDERED: Vancomycin 1gm in NS 250ml 1 GM/250 ML BAG IVPB STA (14:22)
--- NOTE | 2018-11-05 15:53 | PN ---
DATE: 11/05/2018 PULMONARY PROGRESS NOTE REFERRING PHYSICIAN: Dr. Nuha Ha. SUBJECTIVE: The patient is seen lying in bed. Reports not feeling well today. The patient was noted to be febrile with fever 101.2 rectally. Attending was notified. Blood cultures, rapid flu, urine culture, chest x-ray, labs were ordered. The patient was given Tylenol by nursing staff and was given one dose of Rocephin. The patient does report having shortness of breath with exertion. No coughing. No headache, rhinitis, chest pain, abdominal pain, nausea, vomiting, diarrhea, dysuria, leg pain, or leg swelling reported. OBJECTIVE: GENERAL: No acute distress. VITAL SIGNS: Blood pressure 104/70, pulse 72, temperature 101.2 rectal, and oxygen saturation 95%. HEENT: Moist mucous membranes. Mallampati score of 4. Crowded airway. NECK: Supple. No JVD. CHEST: Fair airflow bilaterally. CARDIOVASCULAR: S1 and S2. ABDOMEN: Soft and nontender. No distention. No organomegaly. EXTREMITIES: No bilateral lower extremity edema. NEUROLOGICAL: Awake, alert, and verbal. Follows commands. MEDICATIONS: Reviewed. Tylenol 650 every 6 hours p.r.n. for fever greater than 100.4, DuoNeb 3 mL inhalation every 6 hours, Brovana 15 mcg every 12 hours, aspirin 81 mg daily, Lipitor 10 mg daily, Pulmicort 0.5 mg every 12 hours, digoxin 0.25 mg daily, Lovenox 40 mg subcu daily, Lasix 40 mg daily, Cozaar 50 mg daily, Lopressor 25 mg twice a day, Protonix 40 mg at bedtime, and spironolactone 25 mg daily. LABORATORY DATA: Reviewed. WBC 11.2, RBC 4.58, hemoglobin 14, hematocrit 41.4, and platelets 184. Sodium 137, potassium 4.1, chloride 105, carbon dioxide 23, anion gap 13, BUN 12, creatinine 0.8, GFR greater than 60, random glucose 150, calcium 9.0, total bilirubin 3.4, AST 34, ALT 29, alkaline phosphatase 44, total protein 7.3, albumin 4.0, globulin 3.2, and albumin-globulin ratio 1.2. TSH 0.73. Influenza type A and B negative. Urine culture final; no growth. Chest x-ray shows no active disease. IMPRESSION AND PLAN: Tlj-OV-zlkewztop myocardial infarction, hypertension, asthma, hypercholesteremia, and gastroesophageal reflux disease. Dfs-LC-vdtfnnjno myocardial infarction possibly secondary to Takotsubo syndrome. The patient has status post cardiac catheterization from yesterday which showed mild nonobstructive coronary artery disease, significantly decreased left ventricular function, and ejection fraction 25% to 30%. At this time, we will order procalcitonin. We will order vancomycin 1 g times one dose. We will follow up with blood cultures when available. Continue inhaled bronchodilators, gastric prophylaxis, sequential compression devices to bilateral lower extremities for deep venous thrombosis prophylaxis. Continue cardiology followup. Recommend the patient have full pulmonary function test and sleep study as outpatient as we suspect the patient may have some component of sleep apnea. Head of bed elevated at 45 degrees and sleep apnea precaution. This patient was seen and examined with Dr. Leone. Discussed assessment and plan as described above. This patient was seen and examined by Azael Madrigal, nurse practitioner. Discussed assessment and plan as described above. Thank you for this consult. We will follow with you. Azael Madrigal APN Asa Leone MD MAN
[2018-11-05] MEDS: Budesonide 0.5 mg/2 ml Inhal Susp UD IH SCH (19:25)
[2018-11-05] MEDS: Arformoterol 15 mcg/2 ml Inh Sol IH SCH (19:25)
[2018-11-05] MEDS: Pantoprazole 40 mg EC Tab PO SCH (21:27)
[2018-11-06] MEDS: Albuterol-Ipratrop 3 mg / 0.5 (3 ml) UD IH SCH ×4 (01:21→19:36)
[2018-11-06 07:21] LABS: BASO # 0.03 K/mm3 (0.0-2.0); BASO % 0.4 % (0.0-3.0); EOS # 0.1 (0.0-0.7); EOS % 1.4 % (1.5-5.0); HEMOGLOBIN 14.2 g/dL (12.0-16.0); LYMPH # 2.1 (1.2-3.4); LYMPH % 24.7 % (22.0-35.0); MEAN CELL VOLUME 91.7 fl (80.0-105.0); MEAN CORPUSCULAR HEMOGLOBIN 30.3 pg (25.0-35.0); MEAN CORPUSCULAR HGB CONC 33.1 g/dl (31.0-37.0); MEAN PLATELET VOLUME 10.7 fl (7.0-11.0); MONO # 0.8 (0.1-0.6); MONO % 9.6 % (1.0-6.0); RBC 4.68 10^6/uL (3.5-6.1); RED CELL DISTRIBUTION WIDTH 13.9 % (11.5-14.5); WHITE BLOOD COUNT 8.6 10^3/uL (4.5-11.0)
[2018-11-06 07:39] LABS: ALB/GLOB RATIO 1.2 (1.1-1.8); ALBUMIN 3.9 g/dL (3.0-4.8); ALT/SGPT 20 U/L (7-56); AST/SGOT 27 U/L (14-36); BLOOD UREA NITROGEN 14 mg/dL (7-21); CALCIUM 8.9 mg/dL (8.4-10.5); GFR NON-AFRICAN AMERICAN > 60
[2018-11-06] MEDS: Arformoterol 15 mcg/2 ml Inh Sol IH SCH ×2 (08:26→19:36)
[2018-11-06] MEDS: Budesonide 0.5 mg/2 ml Inhal Susp UD IH SCH ×2 (08:35→19:37)
[2018-11-06] MEDS: Enoxaparin 40 mg Syringe SC SCH (09:44)
--- NOTE | 2018-11-06 10:11 | PN ---
DATE: 11/05/2018 The patient is a 78-year-old female. SUBJECTIVE: The patient was seen and examined at the bedside on 11/05/2018. The patient is having fever, Tylenol given. Rapid flu test done. Chest x-ray, blood cultures, urine culture and sensitivity done. All septic workup done, Tylenol given. No headache. No dizziness. The patient's temperature 101.2 and one dose of rocephine was also given. The patient is reporting shortness of breath with exertion, s/p catheterization. Right now no diarrhea. No dysuria. No leg pain. No swelling of the legs. PHYSICAL EXAMINATION: VITAL SIGNS: Blood pressure 104/70, pulse 72, temperature 101.2 rectally, oxygen saturation 96%. HEENT: Head; normocephalic and atraumatic. Eyes; PERRLA. Extraocular muscles intact. Conjunctivae clear. Nose patent. Mucous membrane moist. NECK: Supple. No carotid bruit. No JVD or thyromegaly. CHEST: Bilaterally symmetrical. LUNGS: Fair airflow bilaterally. HEART: S1 and S2 positive. ABDOMEN: Soft. Bowel sounds present. No organomegaly. EXTREMITIES: No edema. No cyanosis. NEUROLOGIC: Awake, alert. Follows simple commands. MEDICATIONS: Tylenol, DuoNeb, Brovana, aspirin, Lipitor, Pulmicort, digoxin, Lovenox, Lasix, Cozaar, Lopressor, Protonix, and spironolactone. LABORATORY DATA: White blood cell 11.2, hemoglobin 14, hematocrit 41.4, platelet 184. Sodium 134, potassium 4.1, BUN 12, creatinine 0.8. Influenza type A and B negative. Urine culture; no growth. Chest x-ray shows no active disease. ASSESSMENT AND PLAN: Ms. King Guerrero is a 78-year-old lady came with chest pain, non-ST elevation myocardial infarction, hypertension, asthma, hypercholesterolemia, and gastroesophageal reflux disease. The patient had non ST-elevation myocardial infarction and possibly secondary to Takotsubo syndrome. The patient went for cardiac catheterization by Dr. Mixon, showed mild nonobstructive coronary artery disease, significantly decreased left ventricular function and ejection fraction 25% to 30%. Pulmonary ordered vancomycin and prolactin level. Continue inhaled bronchodilators, gastric and deep venous thrombosis prophylaxis. Discussion done with the patient and the patient's nursing staff. Reviewed all doctor's note and the patient's chart. We will follow up. Nuha Ha MD [facility]
--- NOTE | 2018-11-06 10:51 | CP.PCM.PN ---
Subjective - Date & Time of Evaluation Date of Evaluation: 11/06/18 Time of Evaluation: 06:50 - Subjective Subjective: Awake,no distress Reason for consultation and follow up:Cardiac evaluation of chest pain, Non ST segment myocardial infarction, post cardiac catheterization, non obstructive coronary artery disease, Takusubo syndrome cardiomyopathy Seen and examined by me and Dr. Mixon Objective - Vital Signs/Intake and Output Vital Signs (last 24 hours): Temp Pulse Resp BP Pulse Ox 97.8 F 81 20 114/73 98 11/06/18 06:00 11/06/18 09:44 11/06/18 06:00 11/06/18 09:44 11/06/18 06:00 Intake and Output: 11/06/18 11/06/18 06:59 18:59 Intake Total 1740 Output Total 7 Balance 1733 - Medications Medications: Current Medications Acetaminophen (Tylenol 325mg Tab) 650 mg PO Q6H PRN PRN Reason: Fever >100.4 F Last Admin: 11/05/18 12:29 Dose: 650 mg Albuterol/Ipratropium (Duoneb 3 Mg/0.5 Mg (3 Ml) Ud) 3 ml IH [id number] [facility] Last Admin: 11/06/18 08:26 Dose: 3 ml Arformoterol Tartrate (Brovana) 15 mcg IH [id number] [facility] Last Admin: 11/06/18 08:26 Dose: 15 mcg Aspirin (Ecotrin) 81 mg PO DAILY [facility] Last Admin: 11/06/18 09:45 Dose: 81 mg Atorvastatin Calcium (Lipitor) 10 mg PO DAILY [facility] Last Admin: 11/06/18 09:41 Dose: 10 mg Budesonide (Pulmicort Respules) 0.5 mg IH [id number] [facility] Last Admin: 11/06/18 08:35 Dose: 0.5 mg Digoxin (Lanoxin) 0.25 mg PO 1400 [facility] Last Admin: 11/05/18 13:20 Dose: 0.25 mg Enoxaparin Sodium (Lovenox) 40 mg SC DAILY [facility]; Protocol Last Admin: 11/06/18 09:44 Dose: 40 mg Furosemide (Lasix) 40 mg PO DAILY [facility] Last Admin: 11/06/18 09:43 Dose: 40 mg Losartan Potassium (Cozaar) 50 mg PO DAILY [facility] Last Admin: 11/06/18 09:43 Dose: 50 mg Metoprolol Tartrate (Lopressor) 25 mg PO BID [facility] Last Admin: 11/06/18 09:44 Dose: 25 mg Pantoprazole Sodium (Protonix Ec Tab) 40 mg PO HS [facility] Last Admin: 11/05/18 21:27 Dose: 40 mg Spironolactone (Aldactone) 25 mg PO DAILY [facility] Last Admin: 11/06/18 09:43 Dose: 25 mg - Labs Labs: 11/06/18 07:00 11/06/18 07:00 APTT 26.7 Seconds (26.9-38.3) L 11/03/18 23:06 - Constitutional Appears: Non-toxic, No Acute Distress - Head Exam Head Exam: NORMAL INSPECTION, NORMOCEPHALIC - Eye Exam Eye Exam: Normal appearance Pupil Exam: NORMAL ACCOMODATION - ENT Exam ENT Exam: Mucous Membranes Moist, Normal Exam - Respiratory Exam Respiratory Exam: Clear to Ausculation Bilateral, NORMAL BREATHING PATTERN - Cardiovascular Exam Cardiovascular Exam: REGULAR RHYTHM, +S1, +S2 - GI/Abdominal Exam GI & Abdominal Exam: Soft, Normal Bowel Sounds - Extremities Exam Extremities Exam: Full ROM, Normal Capillary Refill - Neurological Exam Neurological Exam: Alert, Awake, Oriented x3 - Psychiatric Exam Psychiatric exam: Normal Affect, Normal Mood - Skin Skin Exam: Dry, Normal Color, Warm Assessment and Plan - Assessment and Plan (Free Text) Assessment: A 78 year old female who came in to the ER due to chest pain, History of hypertension, hypercholesterolemia, and asthma, COPD. Admitted chest pain, Non ST segment myocardial infarction. CT of chest showed dilatation of ascending aorta measuring 4.7 cm and descending aorta 2.9 cms. no dissection.Had post cardiac catheterization and non obstructive coronary artery disease, Takusubo syndrome cardiomyopathy, LVEF 25-30 %. Acute stressful situation at home. Echo done and showed LVEF 25-30%, proximal septal thickening, mild AR, Trace AR, moderate TR, RVSP 51 mmHg, mildly dilated ascending aorta. Takasubo cardiomyopathy. Reaasess LVEF in 3-6 months, hopefully will improve after personal stress situation resolved, if no improvement, will consider AICD. Cardiac status stable. Had low grade fever yesterday, negative for flu.Chest X ray- normal/unremarkable. Plan: No distress Denies chest pain Heart rate and blood pressure stable On ASA 81 mg daily, Lipitor 10 mg daily, Digoxin 0.25 mg daily, Lasix 40 mg daily, Cozaar 50 mg daily, Lopressor 25 mg BID, Aldactone 25 mg daily Continue current treatment Continue current medications Reassess LV function in 3-6 months if no improvement will consider AICD Will follow up result of CT angiogram Plan and treatment discussed with Dr. Mixon
[2018-11-06] MEDS ORDERED: POLYETHYLENE GLYCOL 3350 17 GM/Dose PACKET PO SCH (11:15)
[2018-11-06] MEDS ORDERED: POLYETHYLENE GLYCOL 3350 17 GM/Dose PACKET PO ONE ×2 (11:20→11:21)
--- NOTE | 2018-11-06 12:13 | PN ---
DATE: 11/06/2018 PULMONARY PROGRESS NOTE REFERRING PHYSICIAN: Nuha Ha MD. SUBJECTIVE: The patient is seen sitting up in bed. No acute distress. No overnight events reported. The patient reports feeling well this morning, is afebrile this morning with temperature 97.8. Reports that shortness of breath has improved. No headache, rhinitis, cough, shortness of breath, chest pain, abdominal pain, nausea, vomiting, diarrhea, leg pain, leg swelling reported. The patient does report, however, that she has not had a bowel movement in four days. OBJECTIVE: GENERAL: No acute distress. VITAL SIGNS: Blood pressure 114/73, pulse 81, temperature 97.8, oxygen saturation 98% on room air. HEENT: Moist mucous membranes. Mallampati score of 4. Crowded airway. NECK: Supple. No JVD. CHEST: Fair airflow bilaterally. CARDIOVASCULAR: S1, S2. ABDOMEN: Soft, nontender. No distention. No organomegaly. EXTREMITIES: No bilateral lower extremity edema. NEUROLOGICAL: Awake, alert, verbal. Follows commands. MEDICATIONS: Reviewed. Tylenol 650 every 6 hours p.r.n. for fever greater than 100.4, DuoNeb 3 mL inhalation every 6 hours, Brovana 15 mcg every 12 hours, aspirin 81 mg daily, Lipitor 10 mg daily, Pulmicort 0.5 mg every 12 hours, digoxin 0.25 mg daily, Lovenox 40 mg daily, Lasix 40 mg daily, Cozaar 50 mg daily, metoprolol tartrate 25 mg twice a day, Protonix 40 mg at bedtime, Aldactone 25 mg daily. LABORATORY DATA: Reviewed. WBC 8.6, RBC 4.68, hemoglobin 14.2, hematocrit 42.9, and platelets 168. Sodium 140, potassium 3.9, chloride 108, carbon dioxide 25, anion gap 11, BUN 14, creatinine 0.8, GFR greater than 60, random glucose 104, calcium 8.9, phosphorus 2.3, magnesium 2.1, total bilirubin 3.5, AST 27, ALT 20, alkaline phosphatase 41, total protein 7.2, albumin 3.9, globulin 3.3, albumin-globulin ratio 1.2. Procalcitonin less than 0.05. Influenza type A and B negative. Urine culture final, no growth. Chest x-ray shows no active disease. IMPRESSION AND PLAN: Non-ST elevation myocardial infarction possibly secondary to Takotsubo syndrome, hypertension, asthma, hypercholesteremia, gastroesophageal reflux disease, nonobstructive coronary artery disease, cardiomyopathy. Continue inhaled bronchodilators, gastric prophylaxis, sequential compression devices to bilateral lower extremities for deep venous thrombosis prophylaxis. Continue cardiology followup. We will start the patient on MiraLax for complaint of constipation. We will order physical therapy, out of bed to chair. Recommend the patient have full pulmonary function test and sleep study as outpatient as we suspect the patient may have some component of sleep apnea. This patient was seen and examined with Dr. Leone. Discussed assessment and plan as described above. This patient was seen and examined with Azael Madrigal, nurse practitioner. Discussed assessment and plan as described above. Thank you for this consult. We will follow with you. Azael Madrigal APN Asa Leone MD
[2018-11-06] MEDS: Digoxin 250 mcg (0.25 mg) Tab PO SCH (15:04)
[2018-11-06 15:05] VITALS: PULSE 82
--- NOTE | 2018-11-06 21:16 | PN ---
DATE: 11/06/2018 SUBJECTIVE: The patient is a 78-year-old female. The patient is seen and examined at the bedside on 11/06/2018. I saw her actually in the telemetry, she was complaining of pain in the right groin from where catheterization was done. Otherwise, no fever. According to the patient, shortness of breath has improved. No diarrhea. No coughing. No abdominal pain. The patient did not have bowel movements in 4 days. PHYSICAL EXAMINATION: VITAL SIGNS: Blood pressure 120/70, pulse 80, temperature 97.9, and oxygen saturation 98% on room air. HEENT: Head; normocephalic and atraumatic. Eyes; PERRLA. Extraocular muscles intact. Conjunctivae clear. Nose patent. Mucous membrane moist. NECK: Supple. No carotid bruit, JVD, or thyromegaly. CHEST: Bilaterally symmetrical. HEART: S1 and S2 positive. LUNGS: Clear to auscultation. ABDOMEN: Soft. Bowel sounds present. No organomegaly. EXTREMITIES: No edema. No cyanosis except right groin is tender. NEUROLOGIC: Awake, alert, and follows simple commands. MEDICATIONS: Tylenol, DuoNeb, Brovana, aspirin, Lipitor, Pulmicort, digoxin, Lovenox, Lasix, metoprolol, Protonix, and Aldactone. LABORATORY DATA: White blood cell 8.6, hemoglobin 14.2, hematocrit 42.9, and platelet 160. Sodium 140, potassium 3.9, BUN 14, and creatinine 0.8. ASSESSMENT AND PLAN: Ms. Yolanda Kapadia is a 78-year-old lady with non-ST elevated myocardial infarction, possibly secondary to Takotsubo syndrome, hypertension, asthma, hypercholesterolemia, gastroesophageal reflux disease, nonobstructive pulmonary disease, and cardiomyopathy. The patient had fever yesterday, but not today. We will observe 24 hours. Chest x-ray done shows no infiltrates. The patient is getting Rocephin. Discussion done with the patient and the patient's nurse practitioner. The patient's nurse gave MiraLax, if it will not work, we will give strong medication. Gastrointestinal and deep venous thrombosis prophylaxes. Tylenol for right groin tenderness. Repeat labs. We will follow up. Nuha Ha MD [facility] # [id number]
[2018-11-06] MEDS: Pantoprazole 40 mg EC Tab PO SCH (21:20)
--- NOTE | 2018-11-06 23:16 | CP.PCM.PCO ---
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 Benadryl 25mg PO once was ordered.
[2018-11-07] MEDS: Albuterol-Ipratrop 3 mg / 0.5 (3 ml) UD IH SCH ×3 (01:07→13:48)
[2018-11-07 06:58] LABS: HEMOGLOBIN 13.4 g/dL (12.0-16.0); MEAN CELL VOLUME 91.9 fl (80.0-105.0); MEAN CORPUSCULAR HGB CONC 32.6 g/dl (31.0-37.0); MEAN PLATELET VOLUME 10.8 fl (7.0-11.0); RBC 4.47 10^6/uL (3.5-6.1); RED CELL DISTRIBUTION WIDTH 13.9 % (11.5-14.5); WHITE BLOOD COUNT 7.7 10^3/uL (4.5-11.0)
--- NOTE | 2018-11-07 07:32 | CP.PCM.PN ---
Subjective - Date & Time of Evaluation Date of Evaluation: 11/07/18 Time of Evaluation: 06:55 - Subjective Subjective: Awake,no distress, lying in bed, able to sleep last night Reason for consultation and follow up:Cardiac evaluation of chest pain, Non ST segment myocardial infarction, post cardiac catheterization, non obstructive coronary artery disease, Takusubo syndrome cardiomyopathy Seen and examined by me and Dr. Mixon Objective - Vital Signs/Intake and Output Vital Signs (last 24 hours): Temp Pulse Resp BP Pulse Ox 98.3 F 89 18 100/67 98 11/06/18 12:00 11/06/18 17:28 11/06/18 12:00 11/06/18 17:28 11/06/18 06:00 Intake and Output: 11/07/18 11/07/18 06:59 18:59 Intake Total 1260 Balance 1260 - Medications Medications: Current Medications Acetaminophen (Tylenol 325mg Tab) 650 mg PO Q6H PRN PRN Reason: Fever >100.4 F Last Admin: 11/05/18 12:29 Dose: 650 mg Albuterol/Ipratropium (Duoneb 3 Mg/0.5 Mg (3 Ml) Ud) 3 ml IH [id number] [facility] Last Admin: 11/07/18 01:07 Dose: Not Given Arformoterol Tartrate (Brovana) 15 mcg IH [id number] [facility] Last Admin: 11/06/18 19:36 Dose: 15 mcg Aspirin (Ecotrin) 81 mg PO DAILY [facility] Last Admin: 11/06/18 09:45 Dose: 81 mg Atorvastatin Calcium (Lipitor) 10 mg PO DAILY [facility] Last Admin: 11/06/18 09:41 Dose: 10 mg Budesonide (Pulmicort Respules) 0.5 mg IH [id number] [facility] Last Admin: 11/06/18 19:37 Dose: 0.5 mg Digoxin (Lanoxin) 0.25 mg PO 1400 [facility] Last Admin: 11/06/18 15:04 Dose: 0.25 mg Enoxaparin Sodium (Lovenox) 40 mg SC DAILY [facility]; Protocol Last Admin: 11/06/18 09:44 Dose: 40 mg Furosemide (Lasix) 40 mg PO DAILY [facility] Last Admin: 11/06/18 09:43 Dose: 40 mg Losartan Potassium (Cozaar) 50 mg PO DAILY [facility] Last Admin: 11/06/18 09:43 Dose: 50 mg Metoprolol Tartrate (Lopressor) 25 mg PO BID [facility] Last Admin: 11/06/18 17:28 Dose: 25 mg Pantoprazole Sodium (Protonix Ec Tab) 40 mg PO HS [facility] Last Admin: 11/06/18 21:20 Dose: Not Given Polyethylene Glycol (Miralax) 17 gm PO HS PRN PRN Reason: Constipation Spironolactone (Aldactone) 25 mg PO DAILY [facility] Last Admin: 11/06/18 09:43 Dose: 25 mg - Labs Labs: 11/07/18 06:20 11/06/18 07:00 APTT 26.7 Seconds (26.9-38.3) L 11/03/18 23:06 - Constitutional Appears: Non-toxic, No Acute Distress - Head Exam Head Exam: NORMAL INSPECTION, NORMOCEPHALIC - Eye Exam Eye Exam: Normal appearance Pupil Exam: NORMAL ACCOMODATION - ENT Exam ENT Exam: Mucous Membranes Moist, Normal Exam - Respiratory Exam Respiratory Exam: Decreased Breath Sounds, Clear to Ausculation Bilateral, NORMAL BREATHING PATTERN - Cardiovascular Exam Cardiovascular Exam: +S1, +S2 - GI/Abdominal Exam GI & Abdominal Exam: Soft, Normal Bowel Sounds - Extremities Exam Extremities Exam: Full ROM, Normal Capillary Refill - Neurological Exam Neurological Exam: Alert, Awake, Oriented x3 - Psychiatric Exam Psychiatric exam: Normal Affect, Normal Mood - Skin Skin Exam: Dry, Normal Color, Warm Assessment and Plan - Assessment and Plan (Free Text) Assessment: A 78 year old female who came in to the ER due to chest pain, History of hypertension, hypercholesterolemia, and asthma, COPD. Admitted chest pain, Non ST segment myocardial infarction. CT of chest showed dilatation of ascending aorta measuring 4.7 cm and descending aorta 2.9 cms. no dis section.Had post cardiac catheterization and non obstructive coronary artery disease, Takusubo syndrome cardiomyopathy, LVEF 25-30 %. Acute stressful situation at home. Echo done and showed LVEF 25-30%, proximal septal thickening, mild AR, Trace AR, moderate TR, RVSP 51 mmHg, mildly dilated ascen ding aorta. Takasubo cardiomyopathy. Reaasess LVEF in 3-6 months, hopefully will improve after personal stress situation resolved, if no improvement, will consider AICD. Episode of low grade fever . negative for flu.Chest X ray- normal/unremarkable. Afebrile for the last 24 hours. Latest WBC normal. Cardiac status stable. Plan: Afebrile for the last 24 hours Slept well last night No distress,Denies chest pain Heart rate and blood pressure stable On ASA 81 mg daily, Lipitor 10 mg daily, Digoxin 0.25 mg daily, Lasix 40 mg daily, Cozaar 50 mg daily, Lopressor 25 mg BID, Aldactone 25 mg daily Continue current treatment Continue current medications Reassess LV function in 3-6 months if no improvement will consider AICD May discharge from cardiac standpoint Discharge planning Plan and treatment discussed with Dr. Mixon
[2018-11-07 07:34] LABS: BLOOD UREA NITROGEN 15 mg/dL (7-21); CALCIUM 8.8 mg/dL (8.4-10.5); GFR NON-AFRICAN AMERICAN > 60
[2018-11-07 08:02] VITALS: BP 114/80; PULSE 90; RESP 20; TEMP 98; O2SAT 97
[2018-11-07] MEDS: Arformoterol 15 mcg/2 ml Inh Sol IH SCH (08:14)
[2018-11-07] MEDS: Budesonide 0.5 mg/2 ml Inhal Susp UD IH SCH (08:15)
[2018-11-07] MEDS ORDERED: Potassium Chloride 20 mEq ER Tab PO ONE (08:21)
[2018-11-07] MEDS: Enoxaparin 40 mg Syringe SC SCH (09:44)
--- NOTE | 2018-11-07 12:56 | PN ---
DATE: 11/07/2018 PULMONARY PROGRESS NOTE REFERRING PHYSICIAN: Nuha Ha MD. SUBJECTIVE: The patient was seen lying in bed. No acute distress. Per nursing staff, the patient became a bit agitated last night and was unable to sleep. Benadryl one time dose order was given. When order was received, nursing staff went to give patient Benadryl, the patient was asleep. The staff awoke the patient to give Benadryl and the patient just wanted to continue to sleep, so Benadryl was not given. No headache, rhinitis, cough, shortness of breath, chest pain, abdominal pain, nausea, vomiting, diarrhea, leg pain, leg swelling reported. PHYSICAL EXAMINATION: GENERAL: No acute distress. VITAL SIGNS: Blood pressure 114/80, pulse 90, temperature 98, oxygen saturation 97% on room air. HEENT: Moist mucous membranes. Mallampati score of 4. Crowded airway. NECK: Supple. No JVD. RESPIRATORY: Fair airflow bilaterally. CARDIOVASCULAR: S1, S2. ABDOMEN: Soft, nontender. No distention. No organomegaly. EXTREMITIES: No bilateral lower extremity edema. NEUROLOGICAL: Awake, alert, verbal. Follows commands. MEDICATIONS: Reviewed. Tylenol 650 every 6 hours p.r.n. for fever greater than 100.4, DuoNeb 3 mL inhalation every 6 hours, Brovana 15 mcg every 12 hours, aspirin 81 mg daily, Lipitor 10 mg daily, Pulmicort 0.5 mg every 12 hours, Coreg 3.125 mg twice a day, digoxin 0.25 mg daily, Lovenox 40 mg daily, Lasix 40 mg daily, Cozaar 12.5 mg daily, Protonix 40 mg h.s., MiraLax 17 g h.s. p.r.n. and Aldactone 25 mg daily. LABORATORY DATA: Reviewed. WBC 7.7, RBC 4.47, hemoglobin 13.4, hematocrit 41.1 and platelets 181. Sodium 140, potassium 3.5, chloride 105, carbon dioxide 27, anion gap 11, BUN 15, creatinine 0.9, GFR greater than 60, random glucose 106, calcium 8.8. Blood cultures preliminary, no growth after 24 hours. IMPRESSION AND PLAN: Non-ST elevation myocardial infarction possibly secondary to Takotsubo syndrome, hypertension, asthma, hypercholesteremia, gastroesophageal reflux disease, nonobstructive coronary artery disease, cardiomyopathy. Continue inhaled bronchodilators, gastric prophylaxis, sequential compression devices to bilateral lower extremities for deep venous thrombosis prophylaxis. Continue cardiology followup. The patient with cardiomyopathy. Need to rule out obstructive sleep apnea as a cause. The patient will need sleep study as outpatient. Recommend the patient also have full pulmonary function test as outpatient, out of bed to chair. This patient was seen and examined with Dr. Leone. Discussed assessment and plan as described above. This patient was seen and examined with Azael Madrigal, nurse practitioner. Discussed assessment and plan as described above. Thank you for this consult. We will follow with you. Azael Madrigal APN Asa Leone MD
[2018-11-07] MEDS ORDERED: POLYETHYLENE GLYCOL 3350 17 GM/Dose PACKET PO PRN (22:00)
== END 2018-11-07 14:31 | disposition home or self-care (01) | DRG 281 ==
LOC: ED 22:30 → ERH 11-04 00:08 → 2RNO 11-04 01:53 → 2RSO 11-04 10:51 → 3RNO 11-06 15:36
PROVIDERS: ADMIT Internal Medicine; ATTEND Internal Medicine
PROC: 4A023N7 Measurement of Cardiac Sampling and Pressure, Left Heart, Percutaneous Approach (ICD-10-PCS; principal; 2018-11-04)
PROC: B215YZZ Fluoroscopy of Left Heart using Other Contrast (ICD-10-PCS; 2018-11-04)
PROC: B211YZZ Fluoroscopy of Multiple Coronary Arteries using Other Contrast (ICD-10-PCS; 2018-11-04)
PROC: B310YZZ Fluoroscopy of Thoracic Aorta using Other Contrast (ICD-10-PCS; 2018-11-04)
DX: I21.4 Non-ST elevation (NSTEMI) myocardial infarction (principal); I51.81 Takotsubo syndrome; J98.11 Atelectasis; I25.110 Atherosclerotic heart disease of native coronary artery with unstable angina pectoris; I71.2 Thoracic aortic aneurysm, without rupture; I10 Essential (primary) hypertension; K57.30 Diverticulosis of large intestine without perforation or abscess without bleeding; R50.9 Fever, unspecified; K21.9 Gastro-esophageal reflux disease without esophagitis; E78.5 Hyperlipidemia, unspecified; J44.9 Chronic obstructive pulmonary disease, unspecified; E78.00 Pure hypercholesterolemia, unspecified; Z79.51 Long term (current) use of inhaled steroids

== ENCOUNTER 2018-11-10 10:41 | Inpatient (IN) | payer MEDICARE ==
[2018-11-10 10:54] VITALS: BMI 25.0
[2018-11-10 11:46] LABS: BASO # 0.02 K/mm3 (0.0-2.0); BASO % 0.2 % (0.0-3.0); EOS # 0.1 (0.0-0.7); EOS % 0.5 % (1.5-5.0); HEMOGLOBIN 13.4 g/dL (12.0-16.0); LYMPH # 2.5 (1.2-3.4); LYMPH % 22.9 % (22.0-35.0); MEAN CORPUSCULAR HEMOGLOBIN 30.9 pg (25.0-35.0); MEAN PLATELET VOLUME 10.2 fl (7.0-11.0); MONO # 1.3 (0.1-0.6); MONO % 11.6 % (1.0-6.0); RBC 4.33 10^6/uL (3.5-6.1); RED CELL DISTRIBUTION WIDTH 13.4 % (11.5-14.5)
[2018-11-10 11:54] LABS: ALB/GLOB RATIO 1.2 (1.1-1.8); ALBUMIN 4.1 g/dL (3.0-4.8); ALT/SGPT 17 U/L (7-56); AST/SGOT 26 U/L (14-36); BLOOD UREA NITROGEN 20 mg/dL (7-21); CALCIUM 9.3 mg/dL (8.4-10.5); GFR NON-AFRICAN AMERICAN 54
--- NOTE | 2018-11-10 12:03 | ED PDOC ---
Arrival/HPI - General Chief Complaint: Chest Pain Time Seen by Provider: 11/10/18 10:59 Historian: Patient - History of Present Illness Narrative History of Present Illness (Text): 11/10/18 11:07 78 y/o F, with past medical history of NSTEMI (on 11/04/18), presents to the ED for evaluation of generalized fatigue and generalized myalgias since 2 days. Patient reports dyspnea on exertion walking up the stairs secondary to fatigue but denies any other URI symptoms. Patient additionally informs anterior chest pain since last night but denies taking any medication at home. Patient denies any other associated somatic complaints. Patient denies any fevers, chills, headache, dizziness, shortness of breath, cough, abdominal pain, nausea, vomiting, diarrhea, back pain, neck pain, or any other complaints. PMD: Dr. Ha Time/Duration: < week Symptom Onset: Gradual Symptom Course: Unchanged Activities at Onset: Light Context: Home Past Medical History - Provider Review Nursing Documentation Reviewed: Yes - Infectious Disease Hx of Infectious Diseases: None - Tetanus Immunization Tetanus Immunization: Unknown - Reproductive Menopause: Yes - Cardiac Hx Hypertension: Yes - Pulmonary Hx Asthma: Yes - Neurological Hx Neurological Disorder: No - HEENT Hx HEENT Disorder: No - Renal Hx Renal Disorder: No - Endocrine/Metabolic Hx Endocrine Disorders: No - Hematological/Oncological Hx Blood Disorders: No - Integumentary Hx Dermatological Disorder: No - Musculoskeletal/Rheumatological Hx Musculoskeletal Disorders: No - Gastrointestinal Hx Gastrointestinal Disorders: No - Genitourinary/Gynecological Hx Genitourinary Disorders: No - Psychiatric Hx Psychophysiologic Disorder: No Hx Substance Use: No - Surgical History Hx Cholecystectomy: Yes Hx Orthopedic Surgery: Yes (Right foot) - Anesthesia Hx Anesthesia: Yes Hx Anesthesia Reactions: No Hx Malignant Hyperthermia: No Family/Social History - Physician Review Nursing Documentation Reviewed: Yes Family/Social History: Unknown Family HX Smoking Status: Never Smoked Hx Alcohol Use: No Hx Substance Use: No Allergies/Home Meds Allergies/Adverse Reactions: Allergies No Known Allergies Allergy (Verified 11/03/18 22:41) Home Medications: Home Meds Medication Instructions Recorded Confirmed Olmesartan Medoxomil [Benicar] 20 mg PO DAILY 05/14/15 11/10/18 Review of Systems - Physician Review All systems were reviewed & negative as marked: Yes - Review of Systems Constitutional: absent: Fevers Respiratory: absent: SOB, Cough Cardiovascular: Chest Pain, GENAO Gastrointestinal: absent: Abdominal Pain, Diarrhea, Nausea, Vomiting Genitourinary Female: absent: Dysuria, Urine Output Changes Musculoskeletal: Myalgias. absent: Back Pain, Neck Pain Skin: absent: Rash Neurological: absent: Headache, Dizziness Endocrine: absent: Diaphoresis Psychiatric: absent: Anxiety Physical Exam Vital Signs Reviewed: Yes Vital Signs Temp Pulse Resp BP Pulse Ox 11/10/18 10:52 98.0 F 76 18 131/48 L 98 Temperature: Afebrile Blood Pressure: Hypertensive Pulse: Regular Respiratory Rate: Normal Appearance: Positive for: Well-Appearing, Non-Toxic, Comfortable Pain Distress: None Mental Status: Positive for: Alert and Oriented X 3 - Systems Exam Head: Present: Atraumatic, Normocephalic Conjunctiva: Present: Normal Mouth: Present: Moist Mucous Membranes Respiratory/Chest: Present: Clear to Auscultation, Good Air Exchange. No: Respiratory Distress, Accessory Muscle Use Cardiovascular: Present: Regular Rate and Rhythm. No: Rub, Gallop, Muffled Abdomen: No: Tenderness, Distention, Peritoneal Signs, Rebound, Guarding Back: Present: Normal Inspection. No: Midline Tenderness, Paraspinal Tenderness Upper Extremity: Present: Normal Inspection. No: Cyanosis, Edema Lower Extremity: Present: Normal Inspection. No: Edema Neurological: Present: GCS=15, Speech Normal Skin: Present: Warm, Dry, Normal Color. No: Rashes Psychiatric: Present: Alert, Oriented x 3 Medical Decision Making ED Course and Treatment: 11/10/18 11:07 Impression: 78 year old female presents to the ED for evaluation of generalized myalgias and chest pain. pt took ASA at home today. Plan: -- EKG -- Labs -- Chest X-ray -- Urinalysis -- Reassess and disposition Prior Visits: Notes and results from previous visits were reviewed. Progress Notes: EKG shows normal sinus rhythm at 83 bpm normal axis no ST elevations QTC 502 CBC within normal limits CMP within normal limits Troponin 0.06 she is a decrease from her previous visit BNP is elevated at 1010 cxr; IMPRESSION: Mild bibasilar atelectasis and or scarring. Patient reassessment: Patient is nontoxic well-appearing in no distress with stable vital signs. I discussed the case in depth with Dr. Ha who saw the patient at bedside. Accepts observational status admission to hospital for chest pain Impression: Chest pain, elevated BNP admit to tele - Lab Interpretations Lab Results: Total Bilirubin 2.9 mg/dL (0.2-1.3) H 11/10/18 11:20 AST 26 U/L (14-36) 11/10/18 11:20 ALT 17 U/L (7-56) 11/10/18 11:20 Alkaline Phosphatase 47 U/L (38-126) 11/10/18 11:20 Total Protein 7.7 g/dL (5.8-8.3) 11/10/18 11:20 Albumin 4.1 g/dL (3.0-4.8) 11/10/18 11:20 Globulin 3.6 gm/dL 11/10/18 11:20 Albumin/Globulin Ratio 1.2 (1.1-1.8) 11/10/18 11:20 - RAD Interpretation Radiology Orders: 11/10/18 11:07 CHEST PORTABLE [RAD] Stat - PA / [employer] / Resident Statement MD/DO has reviewed & agrees with the documentation as recorded. - Scribe Statement The provider has reviewed the documentation as recorded by the Scribe Keri Cuevas. All medical record entries made by the Scribe were at my direction and personally dictated by me. I have reviewed the chart and agree that the record accurately reflects my personal performance of the history, physical exam, medical decision making, and the department course for this patient. I have also personally directed, reviewed, and agree with the discharge instructions and disposition. Disposition/Present on Arrival - Present on Arrival Any Indicators Present on Arrival: No History of DVT/PE: No History of Uncontrolled Diabetes: No Urinary Catheter: No History of Decub. Ulcer: No History Surgical Site Infection Following: None - Disposition Have Diagnosis and Disposition been Completed?: Yes Diagnosis: Chest pain, Elevated brain natriuretic peptide (BNP) level Disposition: HOSPITALIZED Disposition Time: 13:55 Patient Plan: Observation Condition: FAIR
[2018-11-10 12:05] LABS: TROPONIN I 0.06 ng/mL
--- NOTE | 2018-11-10 12:08 | RAD ---
Date of service: 11/10/2018 HISTORY: Chest pain COMPARISON: Comparison made with prior chest radiograph dated 11/05/2018. FINDINGS: LUNGS: Mild bibasilar atelectasis and or scarring changes. PLEURA: No significant pleural effusion identified, no pneumothorax apparent. CARDIOVASCULAR: Mild aortic atherosclerotic calcification present. Aorta slightly ectatic and uncoiled. Cardiomegaly.. No jannet pulmonary vascular congestion. OSSEOUS STRUCTURES: Mild multilevel degenerative spondylosis of the thoracic spine VISUALIZED UPPER ABDOMEN: Normal. OTHER FINDINGS: None. IMPRESSION: Mild bibasilar atelectasis and or scarring.
--- NOTE | 2018-11-10 12:38 | CARD ---
APPROVED REPORT Date of service: 11/10/2018 EKG Measurement Heart [id number] <Conclusion> Normal sinus rhythm Inferior infarct, age undetermined T wave abnormality, consider anterolateral ischemia Abnormal ECG
[2018-11-10] MEDS ORDERED: POLYETHYLENE GLYCOL 3350 17 GM/Dose PACKET PO PRN (15:12)
[2018-11-10] MEDS ORDERED: ALBUTEROL SULFATE 90 MCG IH SCH (18:00)
[2018-11-10] MEDS: Arformoterol 15 mcg/2 ml Inh Sol IH SCH (19:50)
[2018-11-10] MEDS: Albuterol 0.5% Inhal Sol (2.5 mg/0.5 ml) UD IH SCH (19:50)
[2018-11-10] MEDS: Budesonide 0.5 mg/2 ml Inhal Susp UD IH SCH (19:51)
--- NOTE | 2018-11-10 20:41 | CON ---
DATE OF CONSULTATION: 11/10/2018 PULMONARY CONSULTATION REFERRING PHYSICIAN: Dr. Ha. REASON FOR CONSULTATION: Shortness of breath. HISTORY OF PRESENT ILLNESS: This is a 78-year-old female, known to us from previous admission, originally admitted a few days ago with non-ST elevation LA, has a cardiac cath done shows nonobstructive coronary artery disease with severe cardiomyopathy, also suspected sleep apnea syndrome, has a history of chronic lung disease and hypertension. Presently lying in the bed, is short of breath. No nausea. No vomiting. Mild abdominal pain. No dysuria, leg pain or leg swelling. PAST MEDICAL HISTORY: As per history of present illness. SOCIAL HISTORY: Nonsmoker, nondrinker. FAMILY HISTORY: No significant cardiopulmonary disease reported. ALLERGIES: NONE KNOWN. MEDICATIONS: She is on albuterol/Atrovent nebulizer every 6 hours, Aldactone 25 mg daily, Ambien 5 mg at bedtime p.r.n., Brovana inhaled twice a day, Coreg 3.125 mg twice a day, Cozaar 12.5 mg daily, Ecotrin 81 mg daily, digoxin 0.25 mg daily, Lasix 40 mg daily, Lipitor 10 mg daily, MiraLax 17 g at bedtime p.r.n., Protonix 40 mg daily, Pulmicort inhaled twice a day, Zestril 2.5 mg daily. REVIEW OF SYSTEMS: No headache. No rhinitis. Complaining about insomnia, daytime sleepy, and tired. Nonspecific chest discomfort. No nausea. Has some vague abdominal pain. No dysuria, leg pain, or leg swelling. PHYSICAL EXAMINATION: GENERAL: No acute distress. VITAL SIGNS: Temperature is 98, heart rate is 87, respiratory rate is 20, blood pressure 107/63, pulse ox 98% on room air. HEENT: Moist mucous membrane. Crowded airway. Mallampati score is 4. NECK: Supple. No JVD. LUNGS: Have fair airflow with rhonchi. HEART: S1 and S2. ABDOMEN: Soft, nontender. No organomegaly. Mild tenderness in the mid abdomen. EXTREMITIES: There is no edema. NEUROLOGIC: Awake, alert, follows simple commands. LABORATORY DATA: Shows hemoglobin 13.4, hematocrit 39.4, WBC 11, platelet count is 251. Sodium 137, potassium 2.7, chloride 101, bicarbonate 26, BUN 20, creatinine 1, calcium 9.3, magnesium 2.1, total bili 2.9, AST 26, ALT 17, alk phos is 47, albumin is 4.1. ProBNP 1010. IMPRESSION: Cardiomyopathy with chronic obstructive lung disease, may have a sleep apnea syndrome, hypertension, hyperlipidemia, gastroesophageal reflux disease. Agree with the present management. Spoke to nursing staff, may give Ambien 5 mg at bedtime p.r.n., keep head at 45 degrees, inhaled bronchodilator, diuretics and afterload ham pumper restarted, gastric prophylaxis, deep venous thrombosis prophylaxis. We will get CT of the abdomen and pelvis. We will suggest attended sleep study upon discharge as outpatient and PFT as outpatient. Thank you and we will follow with you. Asa Leone MD
[2018-11-10] MEDS: Pantoprazole 40 mg EC Tab PO SCH (21:30)
[2018-11-10] MEDS ORDERED: Non Formulary Medication (Esomeprazole Magnesium [Nexium] 40 MG) PO SCH (22:00)
[2018-11-11] MEDS ORDERED: Pneumococcal 23-Valent Vaccine IM ONE (00:14)
[2018-11-11] MEDS ORDERED: Influenza Vaccine 60 mcg/0.5 mL SYR (4YR UP) IM ONE (00:14)
--- NOTE | 2018-11-11 00:22 | CON ---
DATE: 11/10/2018 CONSULT SERVICE CARDIOLOGY REASON FOR CONSULTATION: Followup of generalized weakness, chest pain, shortness of breath, history of Takotsubo syndrome, status post cardiac catheterization a week ago. BRIEF CLINICAL HISTORY: This is a 78-year-old female with a past medical history significant for history of COPD, mild hypertension, hyperlipidemia who recently admitted to the [facility] on 11/04/2018, a week ago with Takotsubo syndrome, non-ST segment myocardial infarction. The patient underwent cardiac catheterization that revealed nonobstructive coronary artery disease. The patient has also a CT angio that is negative for pulmonary embolism. Cardiac catheterization done at that time revealed PLV branch of RCA 60% internal stenosis, nonischemic cardiomyopathy with ejection fraction of 25%. EDP was in the range of 20 to 25. 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 He was discharged on SOFIA inhibitors, yeast beta adelaide and have gentle diuretic. The patient stated that he took many medications and was feeling very weak and lethargic. PAST MEDICAL HISTORY: As above, history of Takotsubo syndrome, hypertension, and hyperlipidemia. SOCIAL HISTORY: Denies any smoking. Denies any history of alcohol abuse. CURRENT MEDICATIONS: The patient is supposed to take spironolactone 25 mg daily, Benicar 20 mg daily, metoprolol, but probably the patient is mixing. The patient was initially discharged on medication Losartan, but the patient mixed up and probably overmedicated himself. REVIEW OF SYSTEMS: As per HPI. PHYSICAL EXAMINATION GENERAL: Height of the patient 5 feet 5 inches, weight of the patient 151 pounds, body mass index 25 kg/m2. VITAL SIGNS: Temperature afebrile, heart rate 87, blood pressure 107/63. HEENT: PERRLA. Extraocular muscles intact. NECK: Supple. No carotid bruit or thyromegaly. CHEST: Clear to auscultation. HEART: S1 and S2 regular. ABDOMEN: Soft. EXTREMITIES: Clubbing, cyanosis negative. LABORATORY DATA: Blood workup; WBC 11, hemoglobin 13.4, hematocrit 39.4, platelet count 251. Chemistry shows sodium 139, potassium 3.6, chloride 101, carbon dioxide 26, anion gap of 13, BUN 20, creatinine 1.0. BNP 12657. IMPRESSION AND PLAN: A 78-year-old female with past medical history significant for Takotsubo syndrome, non-ST segment myocardiac infarction, history of hypertension, hyperlipidemia in the past, admitted when feeling weak. Probably the patient has overmedicated herself. The patient prior to this admit, the patient was on Benicar and metoprolol 25 mg, but the patient was discharged on Coreg 3.125 mg and Losartan 12.5 mg, but probably the patient got mixed and was taking both 50 mg as well as losartan. We will try to simplify medication because the patient may be hypertensive because of the over medication. Also, we will get a MUGA scan because the patient had an echocardiography on last admission that revealed ejection fraction 25% to 30%. The patient has an argumentative and stressful situation at home with . After the patient developed Takotsubo syndrome, a stress related cardiomyopathy. Echo also shows aortic sclerosis with mild aortic stenosis, mild aortic regurgitation, trace mitral regurgitation, moderate tricuspid regurgitation. We will follow with you and simplify the medications. We will get the MUGA scan to assess left ventricular function improvement. Thank you Dr. Ha, for providing us the opportunity in taking care of the patient, King Yolanda. Asa Mixon MD
[2018-11-11] MEDS ORDERED: Barium Sulfate Susp 2.1% w/v, 2.0% w/w 450 mL Bottle PO ONE (01:00)
[2018-11-11] MEDS: Albuterol 0.5% Inhal Sol (2.5 mg/0.5 ml) UD IH SCH ×4 (01:40→19:37)
[2018-11-11 05:25] LABS: URINE BILIRUBIN NEGATIVE (NEGATIVE); URINE BLOOD NEGATIVE (NEGATIVE); URINE GLUCOSE (UA) NEGATIVE (NEGATIVE); URINE LEUKOCYTE ESTERASE NEGATIVE Leu/uL (NEGATIVE); URINE PROTEIN NEGATIVE mg/dL (<30 mg/dL); URINE UROBILINOGEN 0.2 E.U./dL (<1 E.U./dL)
[2018-11-11 05:40] LABS: URINE APPEARANCE CLEAR (CLEAR); URINE COLOR YELLOW (YELLOW)
--- NOTE | 2018-11-11 08:03 | CP.PCM.PN ---
Subjective - Date & Time of Evaluation Date of Evaluation: 11/11/18 Time of Evaluation: 06:45 - Subjective Subjective: Awake, alert, no distress Reason for consultation and follow up: Cardiac evaluation and follow up of Takotsubo syndrome cardiomyopathy, admitted for generalized weakness, history of hypertension, hyperlipidemia. Seen and examined by me and Dr. Mixon Objective - Vital Signs/Intake and Output Vital Signs (last 24 hours): Temp Pulse Resp BP Pulse Ox 98.4 F 87 18 120/76 95 11/11/18 06:00 11/11/18 06:00 11/11/18 06:00 11/11/18 06:00 11/11/18 06:00 Intake and Output: 11/11/18 11/11/18 06:59 18:59 Intake Total 240 Output Total 300 Balance -60 - Medications Medications: Current Medications Albuterol Sulfate (Albuterol 0.5% Inhal Pamela (2.5 Mg/0.5 Ml) Ud) 2.5 mg IH [id number] [facility] Last Admin: 11/11/18 01:40 Dose: 2.5 mg Arformoterol Tartrate (Brovana) 15 mcg IH [id number] [facility] Last Admin: 11/10/18 19:50 Dose: 15 mcg Aspirin (Ecotrin) 81 mg PO DAILY [facility] Atorvastatin Calcium (Lipitor) 10 mg PO DAILY [facility] Budesonide (Pulmicort Respules) 0.5 mg IH [id number] [facility] Last Admin: 11/10/18 19:51 Dose: 0.5 mg Carvedilol (Coreg) 3.125 mg PO BID [facility] Digoxin (Lanoxin) 0.25 mg PO 1400 [facility] Diphenhydramine HCl (Benadryl) 25 mg PO HS PRN PRN Reason: Insomnia Furosemide (Lasix) 40 mg PO DAILY [facility] Lisinopril (Zestril) 2.5 mg PO DAILY [facility] Losartan Potassium (Cozaar) 12.5 mg PO DAILY [facility] Losartan Potassium (Cozaar) 50 mg PO DAILY [facility] Pantoprazole Sodium (Protonix Ec Tab) 40 mg PO HS [facility] Last Admin: 11/10/18 21:30 Dose: Not Given Polyethylene Glycol (Miralax) 17 gm PO HS PRN PRN Reason: Constipation Spironolactone (Aldactone) 25 mg PO DAILY [facility] - Labs Labs: 11/10/18 11:20 11/10/18 11:20 - Constitutional Appears: Non-toxic, No Acute Distress - Head Exam Head Exam: NORMAL INSPECTION, NORMOCEPHALIC - Eye Exam Eye Exam: Normal appearance Pupil Exam: NORMAL ACCOMODATION - ENT Exam ENT Exam: Mucous Membranes Moist, Normal Exam - Respiratory Exam Respiratory Exam: Decreased Breath Sounds, Clear to Ausculation Bilateral, NORMAL BREATHING PATTERN - Cardiovascular Exam Cardiovascular Exam: REGULAR RHYTHM, +S1, +S2 - GI/Abdominal Exam GI & Abdominal Exam: Soft, Normal Bowel Sounds - Extremities Exam Extremities Exam: Full ROM, Normal Capillary Refill - Neurological Exam Neurological Exam: Alert, Awake, Oriented x3 - Psychiatric Exam Psychiatric exam: Normal Affect, Normal Mood - Skin Skin Exam: Dry, Normal Color Assessment and Plan - Assessment and Plan (Free Text) Assessment: A 78 year old female who came in to the ER due to generalized weakness and shortness of breath climbing up the stairs. She was recently hospitalized at [facility] a week ago (11/04/2018) for non STEMI and Takotsubo syndrome. Cardiac cath done and revealed non-obstructive coronary artery disease, PLV branch of RCA 60%, non ischemic cardiomyopathy LVEF 25% ,Takotsubo cardiomyopathy secondary to stress. History of COPD, hypetension, hyperlipidemia. She was discharged home with Coreg 3.125 mg and Losartan 12.5 mg. She used to take Benicar and Metoprolol. Possibly overmedicated herself and taking all of it. Will simplify medications prior to discharge. Will order MUGA scan to evaluate LV function. Feels okay now, probably will benefit Psych evaluation for depression and stress related situation at home. Plan: No distress For MUGA scan today Heart rate and blood pressure controlled On ASA 81 mg daily,Lipitor 10 mg daily,Coreg 3.125 mg BID Digoxin 0.25 mg daily, Lasix 40 mg daily, Lisinopril 2.5 mg daily Aldactone 25 mg daily Continue current treatment Continue current medications Will follow up Recommend Psych evaluation Plan and treatment discussed with Dr. Mixon
[2018-11-11] MEDS: Arformoterol 15 mcg/2 ml Inh Sol IH SCH ×2 (08:28→19:37)
[2018-11-11] MEDS: Budesonide 0.5 mg/2 ml Inhal Susp UD IH SCH ×2 (08:28→19:37)
[2018-11-11] MEDS ORDERED: Non Formulary Medication (Budesonide/Formoterol Fumarate [Symbicort 160-4.5 Mcg Inhaler] 2 IH SCH ×2 (10:00)
[2018-11-11] MEDS ORDERED: OLMESARTAN MEDOXOMIL 20 MG PO SCH (10:00)
[2018-11-11] MEDS ORDERED: Iohexol 350 MG/100 ML VIAL ONE (10:18)
--- NOTE | 2018-11-11 11:41 | PN ---
DATE: 11/11/2018 REFERRING PHYSICIAN: Nuha Ha MD SUBJECTIVE: The patient is seen sitting up in bed. Family at bedside. No acute distress. Reports having some shortness of breath with exertion. No headache, rhinitis, cough, chest pain, abdominal pain, nausea, vomiting, diarrhea, leg pain, leg swelling reported. OBJECTIVE: VITAL SIGNS: Blood pressure 126/78, pulse 83, temperature 98.4, oxygen saturation 95%. GENERAL: No acute distress. HEENT: Moist mucous membranes. Mallampati score of 4. Crowded airways. NECK: Supple. No JVD. LUNGS: Few rhonchi bilaterally. CARDIOVASCULAR: S1 and S2. ABDOMEN: Soft, nontender. No distention. No organomegaly. EXTREMITIES: No bilateral lower extremity edema. NEUROLOGICAL: Awake, alert and verbal. Follows commands. MEDICATIONS: Reviewed. Albuterol 2.5 mg inhalation every 6 hours, Brovana 15 mcg every 12 hours, aspirin 81 mg daily, Lipitor 10 mg daily, Pulmicort 0.5 mg inhalation every 12 hours, Coreg 3.125 mg twice a day,digoxin 0.25 mg daily, Benadryl 25 mg at bedtime p.r.n., Lasix 40 mg p.o. daily, lisinopril 2.5 mg daily, Cozaar 15 mg daily, Protonix 40 mg at bedtime, Miralax 17 g daily p.r.n., spironolactone 25 mg daily. LABORATORY DATA: Reviewed. No new labs. IMPRESSION AND PLAN: Cardiomyopathy with chronic obstructive lung disease, obstructive sleep apnea syndrome, hypertension, hyperlipidemia, gastroesophageal reflux disease. Continue inhaled bronchodilators, afterload reducers, diuretics, gastric prophylaxis. We will place the patient on Lovenox with deep venous thrombosis prophylaxis. The patient is pending CT of abdomen and pelvis to be done. We will order Zovirax one time dose for the patient complaint of cold sore to right upper lip. Suggest the patient to have sleep study and full pulmonary function test as outpatient. This patient was seen and examined with Dr. Leone. Discussed assessment and plan as described above. This patient was seen and examined with Azael Madrigal, nurse practitioner. Discussed assessment and plan as described above. Thank you for this consult. We will follow with you. Azael Madrigal APN Asa Leone MD [facility] # [id number]
--- NOTE | 2018-11-11 12:52 | PN ---
DATE: 11/11/2018 SUBJECTIVE: The patient is a 78-year-old female. The patient is seen and examined at the bedside on 11/11/2018. Daughter was sitting on the bedside also. The patient is feeling better when she is on the bed, as soon as she is going to the bathroom, still getting shortness of breath, weakness, not feeling very well when she is moving, otherwise, no hematuria, hematochezia. No headache. No dizziness. No chest pain. No palpitations. PHYSICAL EXAMINATION VITAL SIGNS: Temperature 98.4, pulse 67, respiratory rate 18, blood pressure 120/76, pulse oximetry 95%. HEENT: Head: Normocephalic, atraumatic. Eyes: PERRLA. Extraocular muscles intact. Conjunctivae clear. Nose patent. Mucous membranes moist. NECK: Supple. No carotid bruit. No JVD or thyromegaly. CHEST: Bilaterally symmetrical. HEART: S1 and S2 positive. LUNGS: Clear to auscultation. ABDOMEN: Soft. Bowel sounds present. No organomegaly. EXTREMITIES: No edema. No cyanosis. NEUROLOGICAL: The patient is awake and alert. Moving all 4 extremities. No focal deficits. MEDICATIONS: Albuterol, Brovana, aspirin, Lipitor, Pulmicort Respules, Coreg, Lanoxin, Benadryl, Lasix, Zestril, Cozaar, Protonix, MiraLax, Aldactone. LABORATORY DATA: White blood cell 11.0, hemoglobin 13.4, hematocrit 39.4, and platelet 251. Sodium 134, potassium 3.7, BUN 20, and creatinine 1.0, glucose 110. ASSESSMENT AND PLAN: Ms. King Guerrero is a 78-year-old lady with multiple medical problems with history of non-ST elevated myocardial infarction recently and Takotsubo syndrome, status post cardiac catheterization, came in into hospital emergency room with generalized weakness, shortness of breath, dyspnea when she is climbing and even going to the bathroom. The patient had ejection fraction of 25%. Cath done by Dr. Mixon. According to him, the patient has Takotsubo cardiomyopathy secondary to stress, history of chronic obstructive pulmonary disease, hypertension, hypercholesterolemia. The patient was discharged recently on Coreg and Losartan. She used to take Benicar and metoprolol, possibly over medication and taking all of it as per Cardiology. Dr. Mixon, ordered MUGA scan for evaluation of left ventricular function. According to him, the patient needs psych evaluation for depression and stress test related situation. Heart rate and blood pressures is under control. Continue aspirin, digoxin and Aldactone. We will repeat digoxin level. The patient is going for CAT scan of abdomen with p.o. contrast, also physical therapy. We will follow. Nuha Ha MD MTDD
--- NOTE | 2018-11-11 13:03 | CT ---
Date of service: 11/11/2018 PROCEDURE: CT Abdomen and Pelvis with contrast HISTORY: recurrent abdominal pain COMPARISON: None available. TECHNIQUE: CT scan of the abdomen and pelvis was performed after administration of intravenous contrast. Oral contrast was administered. Coronal and sagittal reformatted images were obtained. Contrast dose: 100 mL Omnipaque 350 Radiation dose: Total exam DLP = 481.98 mGy-cm. This CT exam was performed using one or more of the following dose reduction techniques: Automated exposure control, adjustment of the mA and/or kV according to patient size, and/or use of iterative reconstruction technique. FINDINGS: LOWER THORAX: The visualized lungs are clear. LIVER: Mild hepatomegaly and fatty liver. Innumerable variable-sized hepatic cysts, the largest in the dome measures 2.9 x 3.1 cm.. No gross lesion or ductal dilatation. GALLBLADDER AND BILE DUCTS: Surgically absent. PANCREAS: Normal in size with homogeneous enhancement. No gross lesion or ductal dilatation. SPLEEN: Normal in size and appearance. ADRENALS: No discrete nodule. KIDNEYS AND URETERS: Normal in size with homogeneous enhancement. No hydronephrosis. No solid mass. There are few subcentimeter simple cysts in the left kidney. VASCULATURE: No aortic aneurysm. There are aortic atherosclerotic calcifications present. BOWEL: Evaluation of the bowel is limited in the absence of oral contrast. The small bowel loops are normal in caliber. The colon is grossly normal in appearance. No bowel wall thickening or obstruction. APPENDIX: Normal appen no inflammatory changes in the right lower quadrant. PERITONEUM: No free fluid. No free air. LYMPH NODES: No enlarged lymph nodes. BLADDER: Well distended and normal in appearance. REPRODUCTIVE: The uterus is surgically absent. BONES: No acute fracture. Advanced multilevel degenerative disc disease. OTHER FINDINGS: None. IMPRESSION: No acute abdominal or pelvic abnormality. Simple hepatic cysts. Few simple cysts in the left kidney.
[2018-11-11] MEDS ORDERED: Digoxin 250 mcg (0.25 mg) Tab PO SCH (14:00)
[2018-11-11 14:54] VITALS: PULSE 88
--- NOTE | 2018-11-11 21:04 | CARD ---
APPROVED REPORT Date of service: 11/11/2018 INDICATION Chest Pain Elevated BNP, assess LV and RV EF% PROCEDURE The above named patient recieved 28.7 millicuries of Tc99m tagged red blood cells intravenously. After achieving equilibrium, gated imaging of 16/frame/cycle was performed utillizing Gamma camera interfaced with a digital computer and gated device. Gated imaging was then performed in the left anterior oblique, anterior, and the left lateral projections. Findings Calculated LV Ejection Fraction is 68%. Impressions Calculated Ejection Fraction is 68 %.
[2018-11-11] MEDS: Pantoprazole 40 mg EC Tab PO SCH (21:30)
[2018-11-12] MEDS: Albuterol 0.5% Inhal Sol (2.5 mg/0.5 ml) UD IH SCH ×3 (01:25→21:00)
--- NOTE | 2018-11-12 07:28 | CP.PCM.PN ---
Subjective - Date & Time of Evaluation Date of Evaluation: 11/12/18 Time of Evaluation: 06:45 - Subjective Subjective: Awake, alert, no distress, feels okay Reason for consultation and follow up: Cardiac evaluation and follow up of Takotsubo syndrome cardiomyopathy, admitted for generalized weakness, history of hypertension, hyperlipidemia. Seen and examined by me and Dr. Mixon Objective - Vital Signs/Intake and Output Vital Signs (last 24 hours): Temp Pulse Resp BP Pulse Ox 98.4 F 75 20 100/67 98 11/12/18 06:00 11/12/18 06:00 11/12/18 06:00 11/12/18 06:00 11/12/18 06:00 Intake and Output: 11/12/18 11/12/18 06:59 18:59 Intake Total 120 Balance 120 - Medications Medications: Current Medications Acyclovir (Zovirax) 800 mg PO DAILY [facility]; Protocol Stop: 11/13/18 12:16 Last Admin: 11/11/18 12:15 Dose: Not Given Albuterol Sulfate (Albuterol 0.5% Inhal Pamela (2.5 Mg/0.5 Ml) Ud) 2.5 mg IH [id number] [facility] Last Admin: 11/12/18 01:25 Dose: 2.5 mg Arformoterol Tartrate (Brovana) 15 mcg IH [id number] [facility] Last Admin: 11/11/18 19:37 Dose: 15 mcg Aspirin (Ecotrin) 81 mg PO DAILY [facility] Last Admin: 11/11/18 09:29 Dose: 81 mg Atorvastatin Calcium (Lipitor) 10 mg PO DAILY [facility] Last Admin: 11/11/18 09:29 Dose: 10 mg Budesonide (Pulmicort Respules) 0.5 mg IH [id number] [facility] Last Admin: 11/11/18 19:37 Dose: 0.5 mg Carvedilol (Coreg) 3.125 mg PO BID [facility] Last Admin: 11/11/18 17:37 Dose: 3.125 mg Digoxin (Lanoxin) 0.25 mg PO 1400 [facility] Last Admin: 11/11/18 14:52 Dose: 0.25 mg Diphenhydramine HCl (Benadryl) 25 mg PO HS PRN PRN Reason: Insomnia Last Admin: 11/11/18 21:14 Dose: 25 mg Enoxaparin Sodium (Lovenox) 40 mg SC DAILY [facility]; Protocol Furosemide (Lasix) 40 mg PO DAILY [facility] Last Admin: 11/11/18 09:51 Dose: 40 mg Lisinopril (Zestril) 2.5 mg PO DAILY [facility] Last Admin: 11/11/18 09:50 Dose: 2.5 mg Losartan Potassium (Cozaar) 12.5 mg PO DAILY [facility] Losartan Potassium (Cozaar) 50 mg PO DAILY [facility] Pantoprazole Sodium (Protonix Ec Tab) 40 mg PO HS [facility] Last Admin: 11/11/18 21:30 Dose: Not Given Polyethylene Glycol (Miralax) 17 gm PO HS PRN PRN Reason: Constipation Spironolactone (Aldactone) 25 mg PO DAILY [facility] Last Admin: 11/11/18 09:50 Dose: 25 mg - Labs Labs: 11/10/18 11:20 11/10/18 11:20 - Constitutional Appears: Non-toxic, No Acute Distress - Head Exam Head Exam: NORMAL INSPECTION, NORMOCEPHALIC - Eye Exam Eye Exam: Normal appearance Pupil Exam: NORMAL ACCOMODATION - ENT Exam ENT Exam: Mucous Membranes Moist, Normal Exam - Respiratory Exam Respiratory Exam: Clear to Ausculation Bilateral, NORMAL BREATHING PATTERN - Cardiovascular Exam Cardiovascular Exam: REGULAR RHYTHM, +S1, +S2 - GI/Abdominal Exam GI & Abdominal Exam: Soft, Normal Bowel Sounds - Extremities Exam Extremities Exam: Full ROM, Normal Capillary Refill - Neurological Exam Neurological Exam: Alert, Awake, Oriented x3 - Psychiatric Exam Psychiatric exam: Normal Affect, Normal Mood - Skin Skin Exam: Dry, Normal Color, Warm Assessment and Plan - Assessment and Plan (Free Text) Assessment: A 78 year old female who came in to the ER due to generalized weakness and shortness of breath climbing up the stairs. She was recently hospitalized at [facility] a week ago (11/04/2018) for non STEMI and Takotsubo syndrome. Cardiac cath done and revealed non-obstructive coronary artery disease, PLV branch of RCA 60%, non ischemic cardiomyopathy LVEF 25% ,Takotsubo cardiomyopathy secondary to stress. History of COPD, hypetension, hyperlipidemia. She was discharged home with Coreg 3.125 mg and Losartan 12.5 mg. She used to take Benicar and Metoprolol. Possibly overmedicated herself and taking all of it.Discussed medications with patient and family. Will simplify medications prior to discharge. MUGA scan done and showed LVEF 68%. Improved tremendously from last LVEF 25% (cardiac cath). Will benefit Psych evaluation for depression and stress related situation at home. CT of abdomen done and showed simple hepatic cyst and left kidney simple cyst. Plan: No distress, feels okay Heart rate and blood pressure controlled On ASA 81 mg daily,Lipitor 10 mg daily,Coreg 3.125 mg BID Digoxin 0.25 mg daily, Lasix 40 mg daily, Lisinopril 2.5 mg daily Aldactone 25 mg daily Continue current treatment Continue current medications Recommend Psych evaluation Discharge planning Will follow up Plan and treatment discussed with Dr. Mixon
[2018-11-12] MEDS: Budesonide 0.5 mg/2 ml Inhal Susp UD IH SCH ×2 (08:03→21:01)
[2018-11-12] MEDS: Arformoterol 15 mcg/2 ml Inh Sol IH SCH ×2 (08:04→21:00)
[2018-11-12] MEDS ORDERED: Potassium Chloride 20 mEq ER Tab PO ONE (08:58)
[2018-11-12] MEDS: Enoxaparin 40 mg Syringe SC SCH (10:54)
--- NOTE | 2018-11-12 14:53 | PN ---
DATE: 11/12/2018 PULMONARY PROGRESS NOTE REFERRING PHYSICIAN: Nuha Ha MD SUBJECTIVE: The patient is seen sitting up in bed. No acute distress. No overnight events reported. No headache, rhinitis, cough, chest pain, abdominal pain, nausea, vomiting, diarrhea, leg pain, leg swelling reported. The patient does report getting short of breath with exertion at times. OBJECTIVE: VITAL SIGNS: Blood pressure 108/69, pulse 71, temperature 98, oxygen saturation 98% on room air. GENERAL: No acute distress. HEENT: Moist mucous membranes. Mallampati score of 4. Crowded airway. NECK: Supple. No JVD. LUNGS: Few rhonchi, dry lungs, fair airflow bilaterally. CARDIOVASCULAR: S1 and S2. ABDOMEN: Soft, nontender. No distention. No organomegaly. EXTREMITIES: No bilateral lower extremity edema. NEUROLOGICAL: Awake, alert and verbal. Follows commands. MEDICATIONS: Reviewed. Zovirax 800 mg p.o. daily, albuterol 2.5 mg inhalation every 6 hours, Brovana 15 mcg every 12 hours, aspirin 81 mg daily, Lipitor 10 mg daily, Pulmicort 0.5 mg every 12 hours, Coreg 3.125 mg twice a day,digoxin 0.25 mg daily, Benadryl 25 mg h.s. p.r.n., Lovenox 40 mg subcu daily, Lasix 20 mg daily, lisinopril 2.5 mg daily, Cozaar 15 mg daily, Protonix 40 mg at bedtime, Miralax 17 g at bedtime p.r.n., Aldactone 25 mg daily. LABORATORY DATA: Reviewed. Abdominal pelvis CT shows no acute abdominal or pelvis abnormality, simple hepatic cyst, few simple cysts in the left kidney. MUGA scan shows ejection fraction 68%. IMPRESSION AND PLAN: Cardiomyopathy, chronic obstructive lung disease, obstructive sleep apnea syndrome, hypertension, hyperlipidemia, gastroesophageal reflux disease. The patient was cleared by Cardiology. For discharge home, we will discharge the patient on prednisone 20 mg x2 days, then prednisone 10 mg x2 days. The patient will be discharged home on Zithromax 250 mg daily for five days. The patient will need to follow up in the office for full pulmonary function test and sleep study. Continue cardiac meds as per Cardiology. From pulmonary point of view, the patient is stable to be discharged home. Discussed discharge home with patient who verbalized understanding. Patient to follow up with primary care physician and overedge sewer in one week. This patient was seen and examined with Dr. Leone. Discussed assessment and plan as described above. This patient was seen and examined with Azael Madrigal, nurse practitioner. Discussed assessment and plan as described above. Thank you for this consult. We will follow with you. Azael Madrigal APN Asa Leone MD MAN
[2018-11-12] MEDS: Pantoprazole 40 mg EC Tab PO SCH (20:14)
[2018-11-13] MEDS: Albuterol 0.5% Inhal Sol (2.5 mg/0.5 ml) UD IH SCH ×2 (02:25→07:45)
--- NOTE | 2018-11-13 02:38 | PN ---
DATE: 11/12/2018 SUBJECTIVE: The patient is a 78-year-old female. The patient was seen and examined at the bedside on 11/12/2018 in the telemetry, even the patient was seen by the travel service consultant and tile shader. No coughing. No nausea, vomiting, diarrhea, or hematuria. No headache or dizziness. No chest pain or palpitations. No fever or chills. As per the patient, she cannot walk, even when she is going to the bathroom she is getting shortness of breath. According to the patient, she is deconditioned and she lives in big home, even going the few steps upstairs or downstairs, she cannot do that. She refused to go home because she states she does not want to come back tomorrow, and as per patient request, I hold on discharge and put physical therapy. I told nurse, do physical therapy; if the patient will do good physical therapy, we will discharge home today, if not maybe the patient is deconditioned and needs rehab, will work on that. Discussion done with the patient's nurse and counseling case manager. PHYSICAL EXAMINATION: VITAL SIGNS: Blood pressure 110/70, pulse 70, temperature 98, oxygen saturation is 98% on room air. HEENT: Head: Normocephalic, atraumatic. Eyes: PERRLA. Extraocular muscles intact. Conjunctivae clear. Nose patent. Mucous membrane moist. NECK: Supple. No carotid bruits, JVD, or thyromegaly. CHEST: Bilaterally symmetrical. HEART: S1 and S2 positive. LUNGS: Clear to auscultation. ABDOMEN: Soft. No organomegaly. EXTREMITIES: No edema, no cyanosis. NEUROLOGIC: The patient is awake, alert. Follows simple commands. MEDICATIONS: Zovirax, albuterol, Brovana, aspirin, Lipitor, Coreg, digoxin, Benadryl, Lovenox, Lasix, Cozaar, Protonix, MiraLax, and Aldactone. LABORATORY DATA: We do not have lab today, but reviewed old labs. ASSESSMENT AND PLAN: Ms. Yolanda Kapadia is a 78-year-old lady with cardiomyopathy, chronic obstructive lung disease, obstructive sleep apnea syndrome, hypertension, status post MUGA scan, hypercholesterolemia, gastroesophageal reflux disease. Seen by travel service consultant and tile shader. The patient is getting a tapering dose of steroids. Discharge planning to change as per the patient's request. According to her, she is very deconditioned. She cannot walk. I put consult with physical therapy. We will see the physical therapy notes. We will plan according to that. Otherwise, we will continue present treatment. Gastrointestinal and deep venous thrombosis prophylaxis. Repeat labs. We will follow up. Nuha Ha MD
[2018-11-13 07:36] LABS: BASO # 0.05 K/mm3 (0.0-2.0); BASO % 0.7 % (0.0-3.0); EOS # 0.2 (0.0-0.7); EOS % 2.5 % (1.5-5.0); HEMOGLOBIN 12.5 g/dL (12.0-16.0); LYMPH # 2.5 (1.2-3.4); LYMPH % 35.8 % (22.0-35.0); MEAN CELL VOLUME 90.5 fl (80.0-105.0); MEAN CORPUSCULAR HEMOGLOBIN 29.8 pg (25.0-35.0); MEAN PLATELET VOLUME 10.1 fl (7.0-11.0); MONO # 0.6 (0.1-0.6); MONO % 9.3 % (1.0-6.0); RBC 4.19 10^6/uL (3.5-6.1); RED CELL DISTRIBUTION WIDTH 13.3 % (11.5-14.5); WHITE BLOOD COUNT 6.9 10^3/uL (4.5-11.0)
[2018-11-13] MEDS: Arformoterol 15 mcg/2 ml Inh Sol IH SCH (07:45)
[2018-11-13] MEDS: Budesonide 0.5 mg/2 ml Inhal Susp UD IH SCH (07:45)
[2018-11-13 07:48] LABS: BLOOD UREA NITROGEN 26 mg/dL (7-21); CALCIUM 8.9 mg/dL (8.4-10.5); GFR NON-AFRICAN AMERICAN > 60
--- NOTE | 2018-11-13 08:51 | CP.PCM.PN ---
Subjective - Date & Time of Evaluation Date of Evaluation: 11/13/18 Time of Evaluation: 07:00 - Subjective Subjective: Awake, alert, no distress Reason for consultation and follow up: Cardiac evaluation and follow up of Takotsubo syndrome cardiomyopathy, admitted for generalized weakness, history of hypertension, hyperlipidemia. Seen and examined by me and Dr. Mixon Objective - Vital Signs/Intake and Output Vital Signs (last 24 hours): Temp Pulse Resp BP Pulse Ox 98.4 F 72 18 131/77 97 11/13/18 06:00 11/13/18 06:00 11/13/18 06:00 11/13/18 06:00 11/13/18 06:00 Intake and Output: 11/13/18 11/13/18 06:59 18:59 Intake Total 540 Balance 540 - Medications Medications: Current Medications Acyclovir (Zovirax) 800 mg PO DAILY [facility]; Protocol Stop: 11/13/18 12:16 Last Admin: 11/12/18 10:54 Dose: 800 mg Albuterol Sulfate (Albuterol 0.5% Inhal Pamela (2.5 Mg/0.5 Ml) Ud) 2.5 mg IH [id number] [facility] Last Admin: 11/13/18 07:45 Dose: 2.5 mg Arformoterol Tartrate (Brovana) 15 mcg IH [id number] [facility] Last Admin: 11/13/18 07:45 Dose: 15 mcg Aspirin (Ecotrin) 81 mg PO DAILY [facility] Last Admin: 11/12/18 10:54 Dose: 81 mg Atorvastatin Calcium (Lipitor) 10 mg PO DAILY [facility] Last Admin: 11/12/18 10:59 Dose: 10 mg Azithromycin (Zithromax) 250 mg PO DAILY [facility]; Protocol Budesonide (Pulmicort Respules) 0.5 mg IH [id number] [facility] Last Admin: 11/13/18 07:45 Dose: 0.5 mg Carvedilol (Coreg) 3.125 mg PO BID [facility] Last Admin: 11/12/18 18:37 Dose: 3.125 mg Enoxaparin Sodium (Lovenox) 40 mg SC DAILY [facility]; Protocol Last Admin: 11/12/18 10:54 Dose: 40 mg Furosemide (Lasix) 20 mg PO DAILY [facility] Last Admin: 11/12/18 10:55 Dose: 20 mg Lisinopril (Zestril) 2.5 mg PO DAILY [facility] Last Admin: 11/12/18 10:55 Dose: 2.5 mg Pantoprazole Sodium (Protonix Ec Tab) 40 mg PO HS [facility] Last Admin: 11/12/18 20:14 Dose: 40 mg Polyethylene Glycol (Miralax) 17 gm PO HS PRN PRN Reason: Constipation Prednisone (Prednisone Tab) 20 mg PO DAILY [facility] - Labs Labs: 11/13/18 07:15 11/13/18 07:15 - Constitutional Appears: Non-toxic, No Acute Distress - Head Exam Head Exam: NORMAL INSPECTION, NORMOCEPHALIC - Eye Exam Eye Exam: Normal appearance Pupil Exam: NORMAL ACCOMODATION - ENT Exam ENT Exam: Mucous Membranes Moist, Normal Exam - Respiratory Exam Respiratory Exam: Clear to Ausculation Bilateral, NORMAL BREATHING PATTERN - Cardiovascular Exam Cardiovascular Exam: +S1, +S2 - GI/Abdominal Exam GI & Abdominal Exam: Soft, Normal Bowel Sounds - Extremities Exam Extremities Exam: Full ROM, Normal Capillary Refill - Neurological Exam Neurological Exam: Alert, Awake, Oriented x3 - Psychiatric Exam Psychiatric exam: Normal Affect, Normal Mood - Skin Skin Exam: Dry, Normal Color, Warm Assessment and Plan - Assessment and Plan (Free Text) Assessment: A 78 year old female who came in to the ER due to generalized weakness and shortness of breath climbing up the stairs. She was recently hospitalized at [facility] [place] ago (11/04/2018) for non STEMI and Takotsubo syndrome. Cardiac cath done and revealed non-obstructive coronary artery disease, PLV branch of RCA 60%, non ischemic cardiomyopathy LVEF 25% ,Takotsubo cardiomyopathy secondary to stress. History of COPD, hypetension, hyperlipidemia. She was discharged home with Coreg 3.125 mg and Losartan 12.5 mg. She used to take Benicar and Metoprolol. Possibly overmedicated herself and taking all of it.Discussed medications with patient and family. Will simplify medications prior to discharge. MUGA scan done and showed LVEF 68%. Improved tremendously from last LVEF 25% (cardiac cath). CT of abdomen done and showed simple hepatic cyst and left kidney simple cyst. Digoxin discontinued. Cardiac status stable. Discharge planning. Plan: Cardiac status stable Improved LVEF Digoxin discontinued No distress Heart rate and blood pressure controlled On ASA 81 mg daily,Lipitor 10 mg daily,Coreg 3.125 mg BID Lasix 40 mg daily, Lisinopril 2.5 mg daily Aldactone 25 mg daily Continue current treatment Continue current medications May discharge from cardiac standpoint Discharge planning Will follow up Plan and treatment discussed with Dr. Mixon
[2018-11-13] MEDS: Enoxaparin 40 mg Syringe SC SCH (09:35)
[2018-11-13 09:36] VITALS: BP 122/77
--- NOTE | 2018-11-13 12:34 | PN ---
DATE: 11/13/2018 PULMONARY PROGRESS NOTE REFERRING PHYSICIAN: Nuha Ha MD SUBJECTIVE: The patient is seen sitting up at bedside. No acute distress. No overnight events reported. No headache, rhinitis, cough, chest pain, abdominal pain, nausea, vomiting, diarrhea, leg pain or leg swelling reported. The patient does state that she gets short of breath sometimes with exertion. OBJECTIVE: GENERAL: No acute distress. VITAL SIGNS: Blood pressure 122/77, pulse 77, temperature 98.4 and oxygen saturation 97% on room air. HEENT: Moist mucous membranes. Mallampati score of 4. Crowded airway. NECK: Supple. No JVD. LUNGS: Fair airflow bilaterally. CARDIOVASCULAR: S1 and S2. ABDOMEN: Soft and nontender. No distention. No organomegaly. EXTREMITIES: No bilateral lower extremity edema. NEUROLOGICAL: Awake, alert and verbal. Follows commands. MEDICATIONS: Reviewed. Zovirax 800 mg daily, albuterol 2.5 mg inhalation every 6 hours, Brovana 15 mcg every 12 hours, aspirin 81 mg daily, Lipitor 10 mg daily, Zithromax 250 mg p.o. daily, Pulmicort 0.5 mg inhalation every 12 hours, Coreg 3.125 mg p.o. twice a day, Lovenox 20 mg subcutaneously daily, Lasix 20 mg daily, lisinopril 2.5 mg daily, Protonix 40 mg at bedtime, MiraLax 17 g at bedtime p.r.n., and prednisone 20 mg daily. LABORATORY DATA: Reviewed. WBC 6.9, RBC 4.19, hemoglobin 12.5, hematocrit 37.9, and platelets 277. Sodium 140, potassium 4.5, chloride 107, carbon dioxide 28, anion gap 10, BUN 26, creatinine 0.9, GFR greater than 60, random glucose 93, calcium 8.9, phosphorus 2.8 and magnesium 2.3. IMPRESSION AND PLAN: Cardiomyopathy, chronic obstructive lung disease, obstructive sleep apnea syndrome, hypertension, hyperlipidemia, gastroesophageal reflux disease. Discharge planning in progress for this patient, the patient to be evaluated by physical therapy today. The patient will need followup as an outpatient for full pulmonary function test to evaluate chronic lung disease. We recommend the patient to have sleep study done for suspected sleep apnea syndrome. Cardiology followup. Continue inhaled bronchodilators, gastric prophylaxis and deep venous thrombosis prophylaxis. This patient was seen and examined with Dr. Leone. Discussed assessment and plan as described above. This patient was seen and examined with Azael Madrigal, nurse practitioner. Discussed assessment and plan as described above. Thank you for this consult. We will follow with you. Azael Madrigal APN Asa Leone MD
[2018-11-13 15:23] VITALS: PULSE 80; RESP 28; TEMP 98.3; O2SAT 96
--- NOTE | 2018-11-13 19:13 | CON ---
DATE: 11/13/2018 HISTORY OF PRESENT ILLNESS: In short, the patient is a 78-year-old female, multiple medical issues including NSTEMI on 11/04/2018. The patient was admitted on the medical side for evaluation of generalized fatigue and myalgias. The patient had multiple somatic complaints and depressed mood, that is why this marine underwriter got involved into the patient's care. I discussed with Dr. Ha, who is primary care physician for this patient. The patient presented to be alert, tearful. The patient reported that her left her past summer. The patient reports since that happened she was feeling more depressed, low energy, poor appetite, feeling of hopelessness and helplessness, despite the fact that the patient is very active and also has history of good financial decisions in the past, owing the house, still the patient was not able to enjoy her life. The patient denied hearing voices, denied seeing things, denied paranoid ideation. The patient reports that she always feel panicky and anxious and is not able to function. The patient is clear that she did not have any thoughts of harming herself or others. The patient denied previous history of being admitted to the psychiatric inpatient unit or being evaluated by psychiatrist. PHYSICAL EXAMINATION: VITAL SIGNS: Reviewed, seemed to be stable. MEDICATIONS: Reviewed. The patient is on albuterol, atorvastatin, azithromycin, Coreg, Lasix, Zestril, Protonix, MiraLax, and prednisone. LABORATORY DATA: Labs reviewed. Chemistries reviewed. Toxicology reviewed. MENTAL STATUS EXAMINATION: The patient presented to be alert and oriented, pleasant, cooperative, good personal hygiene. Over the interview, the patient was tearful, anxious and depressed mood described as, the patient's statement was "I feel like all energy was sucked out of me." Thought process, coherent and goal directed. Thought content, the patient denied visual, auditory, or tactile hallucinations. Denied paranoid ideation. The patient has feeling of hopelessness and transient helplessness. IMPRESSION: Most likely, the patient has major depressive disorder, rule out pathological adjustment. PLAN: Continue current management. Continue current medication. This marine underwriter offered the patient admission to the psychiatric inpatient unit. The patient said that she is willing to be admitted to this marine underwriter when web content & social media manager came over to sign consent for treatment. The patient is indecisive. The patient wants to speak to her daughter and see from that. emergency service worker will be called whenever the patient's daughter showed up. Admission was recommended. Should you have any questions give me a call back. Thank you very much for letting me participate in care of your patient. Thais Nickerson MD
== END 2018-11-13 18:48 | disposition home or self-care (01) | DRG 282 ==
LOC: ED 10:41 → ERH 13:55 → 2RNO 15:12 → OBSVTOIN 11-11 10:35 → 2RNO 11-12 09:25 → 5RSO 11-12 18:27
PROVIDERS: ADMIT Internal Medicine; ATTEND Internal Medicine
DX: I51.81 Takotsubo syndrome (principal); I21.4 Non-ST elevation (NSTEMI) myocardial infarction; I25.10 Atherosclerotic heart disease of native coronary artery without angina pectoris; I10 Essential (primary) hypertension; G47.33 Obstructive sleep apnea (adult) (pediatric); J44.9 Chronic obstructive pulmonary disease, unspecified; E78.5 Hyperlipidemia, unspecified; K21.9 Gastro-esophageal reflux disease without esophagitis; B00.1 Herpesviral vesicular dermatitis; E78.00 Pure hypercholesterolemia, unspecified; N28.1 Cyst of kidney, acquired; K76.89 Other specified diseases of liver

== ENCOUNTER 2018-12-12 09:21 | Outpatient (CLI) | payer MEDICARE | END 2018-12-12 09:22 | disposition home or self-care (01) | LOC: RAD 09:21 | DX: Z12.31 Encounter for screening mammogram for malignant neoplasm of breast (principal) ==